=== PATIENT | female | born 1940 | race Caucasian/White ===

== ENCOUNTER 2019-12-13 10:37 | Outpatient (CLI) | payer MEDICARE, SELFPAY ==
--- NOTE | 2019-12-13 11:00 | CT_ITS ---
WS: [id number] CT CHEST TECHNIQUE: Noncontrast CT of the chest with coronal and sagittal reformatted images. CLINICAL INFORMATION: SHORTNESS OF BREATH COMPARISON: CT chest June 05, 2017 DLP: 891.[address] scans at [facility] use at least one of these dose optimization techniques: automat ed exposure control; mA and/or kV adjustment per patient size (includes targeted exams where dose is matched to clinical indication); or iterative reconstruction. FINDINGS: Mild chronic emphysematous changes. Subsegmental atelectasis in the lung bases. Hazy atelectasis in t he lingula and right middle lobe. No suspicious pulmonary parenchymal abnormalities. No acute pulmona ry infiltrates. No mediastinal or hilar lymphadenopathy. Mild chronic compression deformities throughout the thoracic spine similar in appearance. Aortic calcification. Left lower pole thyroid nodule measuring 1.5 cm. This could followed up with ultrasound. No mediastinal or hilar lymphadenopathy. No axillary lymphadenopathy. Moderate esophageal hiatal dolly ia. Fatty atrophy of the pancreas. Adrenal glands are normal. Cholelithiasis. Splenic artery calcific ation. CT/CT chest wo con [id number] IMPRESSION: 1. Mild chronic emphysematous changes. No acute pulmonary infiltrates. 2. No suspicious pulmonary parenchymal opacities. 3. Cholelithiasis. 4. Moderate esophageal hiatal hernia. 5. Partially visualized lower pole left thyroid nodule measuring 1.5 CM. This can be further evaluated with ultrasound.
[2019-12-13 12:05] LABS: Blood Urea Nitrogen 16 mg/dL (8-23)
== END 2019-12-13 10:38 | disposition home or self-care (01) ==
PROVIDERS: Family Provider Family Medicine; PCP Family Medicine; Visit Provider Family Medicine
DX: F41.9 Anxiety disorder, unspecified (principal); R06.02 Shortness of breath; K80.50 Calculus of bile duct without cholangitis or cholecystitis without obstruction; K44.9 Diaphragmatic hernia without obstruction or gangrene; E04.1 Nontoxic single thyroid nodule
CPT/HCPCS: 71250; 82565; 84520

== ENCOUNTER 2020-01-23 10:17 | Outpatient (CLI) | payer MEDICARE, SELFPAY ==
--- NOTE | 2020-01-23 10:15 | US_ITS ---
WS: [id number] THYROID ULTRASOUND HISTORY: THYROID NODULE COMPARISON: None available. Right lobe: 4.8 cm x 1.6 cm x 2.0 cm. Volume: 8.0 cm3. Normal size gland with mild heterogeneity but no nodule. Left lobe: 4.5 cm x 2.1 cm x 2.4 cm. Volume: 11.6 cm3. Mildly enlarged gland. There are multiple nodules within the gland. The largest nodule in the mid gla nd is mildly hypervascular extending towards the midline. This nodule measures 2.8 x 1.8 x 2.8 cm. Th is is a solid nodule. Isthmus: 0.5 cm. US/US thyroid [id number] IMPRESSION: Dominant solid nodule in the mid LEFT thyroid with extension into the isthmus. Recommend fine-needle aspiration with ultrasound guidance for cytology purposes .
== END 2020-01-23 10:18 | disposition home or self-care (01) ==
LOC: RAD 10:17
PROVIDERS: PCP Family Medicine; Visit Provider Family Medicine
DX: E04.1 Nontoxic single thyroid nodule (principal)
CPT/HCPCS: 76536

== ENCOUNTER 2020-04-03 11:31 | Inpatient (IN) | payer MEDICARE, SELFPAY ==
[2020-04-03] VITALS (143 sets, daily range): BP systolic 57–218; BP diastolic 35–98; PULSE 0–132; RESP 12–22; TEMP 35.9–36.9; O2SAT 62–100; BMI 31.6
--- NOTE | 2020-04-03 11:45 | CT_ITS ---
WS: [id number] CTA CHEST WITH CT ABDOMEN AND PELVIS. HISTORY: Dyspnea. TECHNIQUE: CT angiogram is performed through the chest. Additional imaging is performed through the a bdomen and pelvis with IV contrast. Sagittal and coronal reformats have been submitted. MIP imaging also reviewed. All CT scans at [facility] use at least one of these dose optimization tech niques: automated exposure control; mA and/or kV adjustment per patient size (includes targeted exams where dose is matched to clinical indication); or iterative reconstruction. Contrast: Visipaque 95 cc IV. DLP: 1680.3 mGy.cm COMPARISON: 12/13/2019, 08/30/2013 Chest CTA: Endotracheal tube is in good position. Nasogastric tube in good position. Previously descr ibed abnormally positioned central line appears to be posterior and external to the patient. Apparent ly this was not a central line. Extensive bilateral groundglass attenuation with dense areas of conso lidation. Complete consolidation in the lower lobes. Very small layering RIGHT pleural effusion. No p neumothorax. Normal size aorta. No pulmonary embolism is identified. No adenopathy. No pneumothorax. Mild anasarca in the soft tissues. Abdomen CT: Liver is normal size. Slightly contracted gallbladder. There is a stone present in the ga llbladder lumen. Small amount of pericholecystic fluid. No bile duct dilatation. Mild atrophy of the pancreas. No adrenal mass. No renal obstruction. Atherosclerosis aorta. No free fluid or ascites. No adenopathy. Pelvic CT: Doherty catheter present in the urinary bladder. There is no free fluid. There is a large ma ss with coarse calcifications in the RIGHT LEFT pelvis. Lobulated mass measures 8.4 x 4.8 cm. Mass is inseparable from the uterus. This mass was also described on the prior study but centered more to th e RIGHT of midline with less calcification. Suspect this could be a fibroid uterus but cannot exclude ovarian neoplasm. No adjacent ascites or adenopathy. There are numerous osteoporotic compression fractures throughout the thoracic and lumbar spine. No re tropulsion of any of the fractures. Diffuse osteopenia. There is a small amount of air in the LEFT gl enohumeral joint. There are numerous bilateral rib fractures. Bilateral contiguous rib fractures are probably due to recent CPR. Several of these rib fractures are displaced. On the RIGHT side there are 7 or 8 contiguous rib fractures. At least 7 contiguous rib fractures on the LEFT anteriorly. CT/CT angio chest w abd pel w con IMPRESSION: 1. Severe bilateral, diffuse pulmonary opacifications. Pneumonia, pulmonary ed connor and are within the differential. 2. Endotracheal nasogastric tubes in good position. 3. No PE. 4. Moderate cardiomegaly. 5. No pneumothorax. 6. Numerous bilateral contiguous rib fractures. Probably from CPR. 7. Large lobulated partially calcified mass in the LEFT pelvis may be from an exophytic calcified fibroid. LEFT ovarian neoplasm not completely excluded. The re is no ascites. 8. Slightly contracted gallbladder with pericholecystic fluid and cholelithias is. No bile duct dilatation. May be related to fluid overload or hepatocellular disease. Mild acute cholecystitis not excluded. 9. Numerous thoracic and lumbar spine osteopenia compression fractures are age indeterminate. Notified Dr. Paz at 04/03/2020 1:36 PM.
--- NOTE | 2020-04-03 11:45 | XR_ITS ---
WS: [id number] PORTABLE CHEST HISTORY: Dyspnea COMPARISON: 06/05/2017 Endotracheal tube in good position and terminates above the [place]. Nasogastric tube present with tip in the distal SVC. Defibrillator pads over the thorax. There is a catheter in the RIGHT neck. The ca theter distal tip does not extend toward the heart but is coiled and superiorly directed towards the soft tissues of the neck. Severe bilateral pulmonary infiltrates. New since 06/05/2017. Tiny pleural effusions are suspected. Cardiac size: Moderately enlarged cardiac silhouette. Mediastinum/Aorta: Mild atherosclerosis aorta. No osseous abnormality seen. XR/XR chest 1V portable [id number] IMPRESSION: 1. Endotracheal and nasogastric tubes in good position. 2. RIGHT central line has been placed and is aberrantly positioned with tip d irected superiorly and not towards the heart. Recommend repositioning before us ing. 3. Severe bilateral pulmonary opacifications. Differential includes pulmonary edema/ARDS and pneumonia.
--- NOTE | 2020-04-03 11:46 | ECG_ITS ---
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 Measurements Intervals [place] Rate: 129 P: 32 ID: [id number] QRS: -41 QRSD: 174 T: 117 QT: 349 QTc: 512 Interpretive Statements SINUS TACHYCARDIA WITH FIRST DEGREE AV BLOCK LEFT AXIS DEVIATION [QRS AXIS < -30] LEFT BUNDLE BRANCH BLOCK [120+ ms QRS DURATION, 80+ ms Q/S IN V1/V2, 85+ ms R IN I/aVL/V5/V6] No previous ECG available for comparison Electronically Signed On 04-04-2020 9:22:22 CDT by Brenda Valentine M.D. [id number]
[2020-04-03] MEDS: atropine 0.1 mg/mL Syr 10 mL 1 MG IVP ×3 (11:49→11:59)
[2020-04-03 11:56] LABS: Hematocrit 34.5 % (37.0-47.0); Hemoglobin 10.2 g/dL (11.5-15.3); Mean Corpuscular HGB Conc 29.6 g/dL (30.0-36.0); Mean Corpuscular Hemoglobin 31.8 pg (28.0-34.0); Mean Corpuscular Volume 107.5 fL (81-99); Mean Platelet Volume 11.5 fL (7.4-10.4); Platelet Count 307 10^3/cmm (130-400); Red Blood Count 3.21 10^6/uL (4.1-5.3); Red Cell Distribution Width 14.6 % (12.1-15.1); White Blood Count 21.1 10^3/uL (4.0-10.0)
[2020-04-03] MEDS: DOBUTamine drip 500 MG/250 ML PREMIX IV (12:01)
--- NOTE | 2020-04-03 12:06 | PC.NURSE ---
PORTABLE XRAY AT BEDSIDE FOR CXR. DENY AT BEDSIDE VO WITH READ BACK TO INSERT ET TUBE. ET 25CM AT TEETH.
[2020-04-03 12:10] LABS: INR 1.19 (0.8-1.2)
[2020-04-03 12:11] LABS: Partial Thromboplastin Time 41.4 SECONDS (23.9-36.7)
[2020-04-03 12:12] LABS: Troponin(5th) Baseline 100 ng/L (0-10)
--- NOTE | 2020-04-03 12:12 | PC.NURSE ---
DR. COBOS AT BEDSIDE INFORMED OF HR OF 132BPM VO WITH READ BACK TO HOLD DOPAMINE AND OBTAIN EKG.
[2020-04-03 12:14] LABS: Lactic Sepsis W/Reflex 9.9 mmol/L (0.5-2.2)
--- NOTE | 2020-04-03 12:14 | ECG_ITS ---
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 Measurements Intervals [place] Rate: 33 P: [place]: -1 QRS: 88 QRSD: 162 T: 93 QT: 425 QTc: 317 Interpretive Statements SINUS RHYTHM WITH THIRD DEGREE AV BLOCK INTRAVENTRICULAR CONDUCTION DELAY [130+ ms QRS DURATION] CRITICAL TEST RESULT No previous ECG available for comparison Electronically Signed On 04-04-2020 9:33:18 CDT by Brenda Valentine M.D. [id number] f
[2020-04-03 12:19] LABS: Slide Review Slide Review Perform
[2020-04-03 12:20] LABS: Alanine Aminotransferase 216 U/L (0-33); Albumin Level 3.1 g/dL (3.5-5.2); Alkaline Phosphatase 79 IU/L (35-105); Aspartate Amino Transferase 321 U/L (0-32); Blood Urea Nitrogen 17 mg/dL (8-23); Calcium 8.3 mg/dL (8.5-10.5); Carbon Dioxide 17 mmol/L (22-29); Chloride 101 mmol/L (98-107); Creatine Phosphokinase 186 U/L (26-192); Globulin 2.7 g/dL (1.3-4.6); Glucose 372 mg/dL (65-115); Magnesium 2.3 mg/dL (1.7-2.3); NT Pro B Type Natriuretic Pept 3371 pg/mL (0-450); Osmolality Calculated 295 mOsm/kg (285-295); Sodium 134 mmol/L (136-145); Total Bilirubin 0.3 mg/dL (0.15-1.2); Total Protein 5.8 g/dL (6.6-8.7)
[2020-04-03 12:24] LABS: Absolute Eosinophils 1.4 10^3/cmm (0.0-0.7); Absolute Segmented Neutrophil 7.6 10/cmm (1.6-7.1); Eosinophils 7 %; Lymphocytes 48 %; Lymphocytes Absolute 10.8 10^3/cmm (1.2-3.4); Monocytes Absolute 0.2 10^3/cmm (0.1-0.6); Segmented Neutrophils 36 %; Total Cells Counted 100 (0-100)
[2020-04-03 12:25] LABS: Absolute Neutrophil 7.6 10^3/cmm (1.4-6.5); Anisocytosis Trace; Platelet Estimate Normal (Normal); Poikilocytosis Trace
[2020-04-03 12:25] LABS: Arterial Blood Gas Hematocrit 33.7 % (37-47); Base Excess ABG -16.4 mmol/L (-2.0-2.0); Blood Gas Sample Type Arterial; Carboxyhemoglobin 1.2 %THgb (0.4-20.1); HCO3 ABG 15.8 mmol/L (22-26); Ionized Calcium Level - ABG 1.2 mmol/L (1.1-1.4); Methemoglobin 0.9 % (0.4-1.5); Oxygen Saturation ABG 82.7; PO2 ABG 72.9 mmHg (80.0-100.0); Potassium Level - ABG 5.6 mmol/L (3.5-5.0)
[2020-04-03 12:26] LABS: Alveolar-Arterial Oxygen Gradi 73.3 mmHg (5-10); Blood Gas Operator Identificat GD; Blood Gas Tidal Volume 0.45; Oxygen Device VENT
[2020-04-03] MEDS: sodium chloride 0.9% 1,000 ML 100 ML IV (12:27)
--- NOTE | 2020-04-03 12:28 | PC.NURSE ---
VO WITH READBACK TO TAKE PT TO CT.
--- NOTE | 2020-04-03 12:33 | W.ED.CPR ---
HPI - CPR General: Chief Complaint: Cardiac Arrest/CPR Stated Complaint: SOB Time Seen by Provider: 04/03/20 11:45 Source: EMS Mode of arrival: EMS History of Present Illness: HPI narrative: Ophelia is a 79-year-old female who comes in with active CPR. Please see EMS's note for their run report. Verbally they reported the patient has been coded off and on for approximately 20 minutes in route. They were initially called for a respiratory distress and the code began after she was given RSI for respiratory failure. Patient arrives here in full cardiac arrest with active CPR. Review of Systems General: Reports: ROS unobtainable due to medical condition PFS ED PFSH: Medical History (Updated 04/03/20 @ 15:16 by Jonathon Zavala MD) Anxiety Depression DM type 2 (diabetes mellitus, type 2) Fibromyalgia Hyperlipidemia Hypertension Hypothyroidism Osteoarthritis Osteoporosis Polymyalgia rheumatica Family History (Updated 04/03/20 @ 14:58 by Jonathon Zavala MD) Other CAD (coronary artery disease) Diabetes Stroke Social History (Updated 04/03/20 @ 14:58 by Jonathon Zavala MD) Smoking and tobacco status: former smoker Alcohol intake: never Household members: spouse Housing: House Physical Exam Const: OTHER: Unresponsive with active CPR ongoing HENMT: COMMON NORMALS: normocephalic and atraumatic HEAD & SCALP: normocephalic and atraumatic Eye: OTHER: Pupils 3 mm and reactive Neck/C-Spine: COMMON NORMALS: no meningeal signs Resp: AUSCULTATION: rales and rhonchi OTHER: Patient with bagged breath sounds Cardio: OTHER: No pulse GI: COMMON NORMALS: Soft to palpation PALPATION: Yes Soft to palpation and Yes Other GI palpation findings present (Nondistended) Extremity: NARRATIVE EXTREMITY EXAM: Bruising and ecchymosis noted to both knees. Greater on the left than the right Neuro: JENNIFER COMA SCALE: document GCS findings Jennifer coma scale eye opening: None [place] coma scale verbal response: None [place] coma scale motor response: None [place] coma scale total score: 3 MENINGEAL SIGNS: Yes no meningeal signs Procedures Central Line Placement Right Femoral: Time Out Performed: Yes Patient Placed on Monitor/Pulse Ox: Yes Prep: mask, gown and gloves Central Line Prep: Chlorhexidine scrub Ultrasound Used for Placement: Yes Central Line Lumen Inserted: triple Post Procedure: sutured in place, good blood return, all ports aspirated, flushed, capped and sterile dressing applied Patient Tolerated Procedure: well Complications: none Course ED course: 1200 -after ROSC the patient is noted to be bradycardic with third-degree AV block. Dr. Miranda has reviewed the EKG and agrees she needs to be taken for temporary pacemaker. 1215 -patient's rhythm is changed on dopamine. She appears to be in a sinus tachycardia with a bundle branch block. Dr. Miranda thinks the patient can wait until her work-up is completed and the pacemaker can be placed if she becomes bradycardic again. Dr. Tee has been updated. Vital Signs: Vital signs: Vital Signs Temperature 98.1 F 04/03/20 20:00 Pulse Rate 77 04/03/20 21:55 Respiratory Rate 16 04/03/20 21:13 Blood Pressure 112/50 04/03/20 21:55 Pulse Oximetry 98 04/03/20 21:55 MDM - Cardiac Arrest/CPR MDM Narrative: Medical decision making narrative: The case was reviewed again with Dr. Zavala who had been previously spoken to about the case. He agrees admit to the ICU. Repeat BMP is pending at this time. Hyperkalemic cocktail was given. Family was updated about the patient's poor prognosis. Further care be dictated by Dr. Tee in the ICU. Lab Data: Attestation: I reviewed the patient's lab results. Labs: Lab Results 04/03/20 04/03/20 04/03/20 Range/Units 11:40 11:40 11:40 WBC 21.1 H (4.0-10.0) 10^3/ uL RBC 3.21 L (4.1-5.3) 10^6/u L Hgb 10.2 L (11.5-15.3) g/dL Hct 34.5 L (37.0-47.0) % MCV 107.5 H (81-99) fL MCH 31.8 (28.0-34.0) pg MCHC 29.6 L (30.0-36.0) g/dL RDW 14.6 (12.1-15.1) % Plt Count 307 (130-400) 10^3/c mm MPV 11.5 H (7.4-10.4) fL Lymph % (Auto) Not Reportable Wood % (Auto) Not Reportable Lymph # (Auto) Not Reportable Wood # (Auto) Not Reportable Total Counted 100 (0-100) Atypical Lymphs % 3.0 (0-5) % Absolute Neutrophi ls 7.6 H (1.4-6.5) 10^3/c mm Segmented Neutroph ils 36 % Abs Segm Neuts (Ma n) 7.6 H (1.6-7.1) 10/cmm Band Neutrophils 0.0 % Abs Band Neuts (Ma n) 0.0 (0.0-1.2) 10^3/c mm Absolute Lymphocyt es 10.8 H (1.2-3.4) 10^3/c mm Lymphocytes (Manua l) 48 % Monocytes (Manual) 1.0 % Absolute Monocytes 0.2 (0.1-0.6) 10^3/c mm Eosinophils (Manua l) 7 % Absolute Eosinophi ls 1.4 H (0.0-0.7) 10^3/c mm Metamyelocytes 1.0 % Myelocytes 3.0 % Promyelocytes 1.0 % Platelet Estimate Normal (Normal) Poikilocytosis Trace Anisocytosis Trace PT 15.50 H (12.1-14.9) SECO NDS INR 1.19 (0.8-1.2) APTT 41.4 H (23.9-36.7) SECO NDS Specimen Type ABG pH (7.35-7.45) ABG pCO2 (35-45) mmHg ABG pO2 (80.0-100.0) mmH g ABG HCO3 (22-26) mmol/L ABG O2 Saturation ABG Base Excess (-2.0-2.0) mmol/ L Owen Test A-a O2 Gradient (5-10) mmHg Hematocrit (37-47) % Hgb O2 Saturation (95-100) % Carboxyhemoglobin (0.4-20.1) %THgb Methemoglobin (0.4-1.5) % Total Hemoglobin (12-16) g/dL Ionized Calcium (1.1-1.4) mmol/L O2 Delivery Device FiO2 % Tidal Volume PEEP cmH20 Language Therapist ID Sodium 134 L (136-145) mmol/L Potassium 6.8 H* (3.5-5.1) mmol/L Chloride 101 (98-107) mmol/L Carbon Dioxide 17 L (22-29) mmol/L Anion Gap 22.8 H (5-19) BUN 17 (8-23) mg/dL Creatinine 2.1 H (0.5-0.9) mg/dL GFR Calculation Not Reportable Glucose 372 H (65-115) mg/dL Calculated Osmolal ity 295 (285-295) mOsm/k g Lactic Acid (0.5-2.2) mmol/L Calcium 8.3 L (8.5-10.5) mg/dL Magnesium 2.3 (1.7-2.3) mg/dL Total Bilirubin 0.3 (0.15-1.2) mg/dL AST 321 H (0-32) U/L ALT 216 H (0-33) U/L Alkaline Phosphata se 79 (35-105) IU/L Creatine Kinase 186 (26-192) U/L Troponin T Baselin e (0-10) ng/L NT-Pro-B Natriuret Pep 3371 H (0-450) pg/mL Total Protein 5.8 L (6.6-8.7) g/dL Albumin 3.1 L (3.5-5.2) g/dL Globulin 2.7 (1.3-4.6) g/dL Urine Color (Yellow) Urine Appearance (CLEAR) Urine pH (5-7) Ur Specific Gravit y (1.005-1.030) Urine Protein (Negative) Urine Glucose (UA) (Normal) Urine Ketones (Negative) Urine Blood (Negative) Urine Nitrate (Negative) Urine Bilirubin (Negative) Urine Urobilinogen (Negative) mg/dL Ur Leukocyte Patricia ase (Negative) Urine RBC (0-2) /hpf Urine WBC (0-5) /hpf Ur Squamous Epith Cells (0-5) /hpf Amorphous Sediment Urine Bacteria (NONE) /hpf Ur Random Sodium mmol/L Ur Random Potassiu m mmol/L Ur Random Chloride mmol/L Urine Opiates Scre en (Negative) ng/mL Ur Barbiturates Sc reen (Negative) ng/mL Ur Phencyclidine S crn (Negative) ng/mL Ur Amphetamines Sc reen (Negative) ng/mL U Benzodiazepines Scrn (Negative) ng/mL Urine Cocaine Scre en (Negative) ng/mL U Marijuana (THC) Screen (Negative) ng/mL Serum Ketones (Negative) SARS-CoV-2 Ag (Rap id) (Negative) 04/03/20 04/03/20 04/03/20 Range/Units 11:40 11:40 11:40 WBC (4.0-10.0) 10^3/ uL RBC (4.1-5.3) 10^6/u L Hgb (11.5-15.3) g/dL Hct (37.0-47.0) % MCV (81-99) fL MCH (28.0-34.0) pg MCHC (30.0-36.0) g/dL RDW (12.1-15.1) % Plt Count (130-400) 10^3/c mm MPV (7.4-10.4) fL Lymph % (Auto) Wood % (Auto) Lymph # (Auto) Wood # (Auto) Total Counted (0-100) Atypical Lymphs % (0-5) % Absolute Neutrophi ls (1.4-6.5) 10^3/c mm Segmented Neutroph ils % Abs Segm Neuts (Ma n) (1.6-7.1) 10/cmm Band Neutrophils % Abs Band Neuts (Ma n) (0.0-1.2) 10^3/c mm Absolute Lymphocyt es (1.2-3.4) 10^3/c mm Lymphocytes (Manua l) % Monocytes (Manual) % Absolute Monocytes (0.1-0.6) 10^3/c mm Eosinophils (Manua l) % Absolute Eosinophi ls (0.0-0.7) 10^3/c mm Metamyelocytes % Myelocytes % Promyelocytes % Platelet Estimate (Normal) Poikilocytosis Anisocytosis PT (12.1-14.9) SECO NDS INR (0.8-1.2) APTT (23.9-36.7) SECO NDS Specimen Type ABG pH (7.35-7.45) ABG pCO2 (35-45) mmHg ABG pO2 (80.0-100.0) mmH g ABG HCO3 (22-26) mmol/L ABG O2 Saturation ABG Base Excess (-2.0-2.0) mmol/ L Owen Test A-a O2 Gradient (5-10) mmHg Hematocrit (37-47) % Hgb O2 Saturation (95-100) % Carboxyhemoglobin (0.4-20.1) %THgb Methemoglobin (0.4-1.5) % Total Hemoglobin (12-16) g/dL Ionized Calcium (1.1-1.4) mmol/L O2 Delivery Device FiO2 % Tidal Volume PEEP cmH20 Language Therapist ID Sodium (136-145) mmol/L Potassium (3.5-5.1) mmol/L Chloride (98-107) mmol/L Carbon Dioxide (22-29) mmol/L Anion Gap (5-19) BUN (8-23) mg/dL Creatinine (0.5-0.9) mg/dL GFR Calculation Glucose (65-115) mg/dL Calculated Osmolal ity (285-295) mOsm/k g Lactic Acid 9.9 H* (0.5-2.2) mmol/L Calcium (8.5-10.5) mg/dL Magnesium (1.7-2.3) mg/dL Total Bilirubin (0.15-1.2) mg/dL AST (0-32) U/L ALT (0-33) U/L Alkaline Phosphata se (35-105) IU/L Creatine Kinase (26-192) U/L Troponin T Baselin e 100 H (0-10) ng/L NT-Pro-B Natriuret Pep (0-450) pg/mL Total Protein (6.6-8.7) g/dL Albumin (3.5-5.2) g/dL Globulin (1.3-4.6) g/dL Urine Color Yellow (Yellow) Urine Appearance Clear (CLEAR) Urine pH 6.5 (5-7) Ur Specific Gravit y 1.010 (1.005-1.030) Urine Protein Neg (Negative) Urine Glucose (UA) Norm (Normal) Urine Ketones Negative (Negative) Urine Blood Neg (Negative) Urine Nitrate Negative (Negative) Urine Bilirubin Neg (Negative) Urine Urobilinogen Norm (Negative) mg/dL Ur Leukocyte Patricia ase Negative (Negative) Urine RBC 0-4 H (0-2) /hpf Urine WBC 0-4 H (0-5) /hpf Ur Squamous Epith Cells 0-4 H (0-5) /hpf Amorphous Sediment Not Reportable Urine Bacteria Trace (NONE) /hpf Ur Random Sodium mmol/L Ur Random Potassiu m mmol/L Ur Random Chloride mmol/L Urine Opiates Scre en (Negative) ng/mL Ur Barbiturates Sc reen (Negative) ng/mL Ur Phencyclidine S crn (Negative) ng/mL Ur Amphetamines Sc reen (Negative) ng/mL U Benzodiazepines Scrn (Negative) ng/mL Urine Cocaine Scre en (Negative) ng/mL U Marijuana (THC) Screen (Negative) ng/mL Serum Ketones (Negative) SARS-CoV-2 Ag (Rap id) (Negative) 04/03/20 04/03/20 04/03/20 Range/Units 11:40 11:40 12:08 WBC (4.0-10.0) 10^3/ uL RBC (4.1-5.3) 10^6/u L Hgb (11.5-15.3) g/dL Hct (37.0-47.0) % MCV (81-99) fL MCH (28.0-34.0) pg MCHC (30.0-36.0) g/dL RDW (12.1-15.1) % Plt Count (130-400) 10^3/c mm MPV (7.4-10.4) fL Lymph % (Auto) Wood % (Auto) Lymph # (Auto) Wood # (Auto) Total Counted (0-100) Atypical Lymphs % (0-5) % Absolute Neutrophi ls (1.4-6.5) 10^3/c mm Segmented Neutroph ils % Abs Segm Neuts (Ma n) (1.6-7.1) 10/cmm Band Neutrophils % Abs Band Neuts (Ma n) (0.0-1.2) 10^3/c mm Absolute Lymphocyt es (1.2-3.4) 10^3/c mm Lymphocytes (Manua l) % Monocytes (Manual) % Absolute Monocytes (0.1-0.6) 10^3/c mm Eosinophils (Manua l) % Absolute Eosinophi ls (0.0-0.7) 10^3/c mm Metamyelocytes % Myelocytes % Promyelocytes % Platelet Estimate (Normal) Poikilocytosis Anisocytosis PT (12.1-14.9) SECO NDS INR (0.8-1.2) APTT (23.9-36.7) SECO NDS Specimen Type Arterial ABG pH 6.96 L* (7.35-7.45) ABG pCO2 70.7 H* (35-45) mmHg ABG pO2 72.9 L (80.0-100.0) mmH g ABG HCO3 15.8 L (22-26) mmol/L ABG O2 Saturation 82.7 ABG Base Excess -16.4 L (-2.0-2.0) mmol/ L Owen Test N/a A-a O2 Gradient 73.3 H (5-10) mmHg Hematocrit 33.7 L (37-47) % Hgb O2 Saturation 81.0 L (95-100) % Carboxyhemoglobin 1.2 (0.4-20.1) %THgb Methemoglobin 0.9 (0.4-1.5) % Total Hemoglobin 11.0 L (12-16) g/dL Ionized Calcium 1.2 (1.1-1.4) mmol/L O2 Delivery Device Vent FiO2 100.0 % Tidal Volume 0.45 PEEP 8.0 cmH20 Language Therapist ID Gd Sodium 138.0 (136-145) mmol/L Potassium 5.6 H (3.5-5.1) mmol/L Chloride (98-107) mmol/L Carbon Dioxide (22-29) mmol/L Anion Gap (5-19) BUN (8-23) mg/dL Creatinine (0.5-0.9) mg/dL GFR Calculation Glucose 335.0 H (65-115) mg/dL Calculated Osmolal ity (285-295) mOsm/k g Lactic Acid (0.5-2.2) mmol/L Calcium (8.5-10.5) mg/dL Magnesium (1.7-2.3) mg/dL Total Bilirubin (0.15-1.2) mg/dL AST (0-32) U/L ALT (0-33) U/L Alkaline Phosphata se (35-105) IU/L Creatine Kinase (26-192) U/L Troponin T Baselin e (0-10) ng/L NT-Pro-B Natriuret Pep (0-450) pg/mL Total Protein (6.6-8.7) g/dL Albumin (3.5-5.2) g/dL Globulin (1.3-4.6) g/dL Urine Color (Yellow) Urine Appearance (CLEAR) Urine pH (5-7) Ur Specific Gravit y (1.005-1.030) Urine Protein (Negative) Urine Glucose (UA) (Normal) Urine Ketones (Negative) Urine Blood (Negative) Urine Nitrate (Negative) Urine Bilirubin (Negative) Urine Urobilinogen (Negative) mg/dL Ur Leukocyte Patricia ase (Negative) Urine RBC (0-2) /hpf Urine WBC (0-5) /hpf Ur Squamous Epith Cells (0-5) /hpf Amorphous Sediment Urine Bacteria (NONE) /hpf Ur Random Sodium 73 mmol/L Ur Random Potassiu m 45 mmol/L Ur Random Chloride 66 mmol/L Urine Opiates Scre en Negative (Negative) ng/mL Ur Barbiturates Sc reen Negative (Negative) ng/mL Ur Phencyclidine S crn Negative (Negative) ng/mL Ur Amphetamines Sc reen Negative (Negative) ng/mL U Benzodiazepines Scrn Positive H (Negative) ng/mL Urine Cocaine Scre en Negative (Negative) ng/mL U Marijuana (THC) Screen Negative (Negative) ng/mL Serum Ketones Negative (Negative) SARS-CoV-2 Ag (Rap id) (Negative) 04/03/20 Range/Units 12:30 WBC (4.0-10.0) 10^3/ uL RBC (4.1-5.3) 10^6/u L Hgb (11.5-15.3) g/dL Hct (37.0-47.0) % MCV (81-99) fL MCH (28.0-34.0) pg MCHC (30.0-36.0) g/dL RDW (12.1-15.1) % Plt Count (130-400) 10^3/c mm MPV (7.4-10.4) fL Lymph % (Auto) Wood % (Auto) Lymph # (Auto) Wood # (Auto) Total Counted (0-100) Atypical Lymphs % (0-5) % Absolute Neutrophi ls (1.4-6.5) 10^3/c mm Segmented Neutroph ils % Abs Segm Neuts (Ma n) (1.6-7.1) 10/cmm Band Neutrophils % Abs Band Neuts (Ma n) (0.0-1.2) 10^3/c mm Absolute Lymphocyt es (1.2-3.4) 10^3/c mm Lymphocytes (Manua l) % Monocytes (Manual) % Absolute Monocytes (0.1-0.6) 10^3/c mm Eosinophils (Manua l) % Absolute Eosinophi ls (0.0-0.7) 10^3/c mm Metamyelocytes % Myelocytes % Promyelocytes % Platelet Estimate (Normal) Poikilocytosis Anisocytosis PT (12.1-14.9) SECO NDS INR (0.8-1.2) APTT (23.9-36.7) SECO NDS Specimen Type ABG pH (7.35-7.45) ABG pCO2 (35-45) mmHg ABG pO2 (80.0-100.0) mmH g ABG HCO3 (22-26) mmol/L ABG O2 Saturation ABG Base Excess (-2.0-2.0) mmol/ L Owen Test A-a O2 Gradient (5-10) mmHg Hematocrit (37-47) % Hgb O2 Saturation (95-100) % Carboxyhemoglobin (0.4-20.1) %THgb Methemoglobin (0.4-1.5) % Total Hemoglobin (12-16) g/dL Ionized Calcium (1.1-1.4) mmol/L O2 Delivery Device FiO2 % Tidal Volume PEEP cmH20 Language Therapist ID Sodium (136-145) mmol/L Potassium (3.5-5.1) mmol/L Chloride (98-107) mmol/L Carbon Dioxide (22-29) mmol/L Anion Gap (5-19) BUN (8-23) mg/dL Creatinine (0.5-0.9) mg/dL GFR Calculation Glucose (65-115) mg/dL Calculated Osmolal ity (285-295) mOsm/k g Lactic Acid (0.5-2.2) mmol/L Calcium (8.5-10.5) mg/dL Magnesium (1.7-2.3) mg/dL Total Bilirubin (0.15-1.2) mg/dL AST (0-32) U/L ALT (0-33) U/L Alkaline Phosphata se (35-105) IU/L Creatine Kinase (26-192) U/L Troponin T Baselin e (0-10) ng/L NT-Pro-B Natriuret Pep (0-450) pg/mL Total Protein (6.6-8.7) g/dL Albumin (3.5-5.2) g/dL Globulin (1.3-4.6) g/dL Urine Color (Yellow) Urine Appearance (CLEAR) Urine pH (5-7) Ur Specific Gravit y (1.005-1.030) Urine Protein (Negative) Urine Glucose (UA) (Normal) Urine Ketones (Negative) Urine Blood (Negative) Urine Nitrate (Negative) Urine Bilirubin (Negative) Urine Urobilinogen (Negative) mg/dL Ur Leukocyte Patricia ase (Negative) Urine RBC (0-2) /hpf Urine WBC (0-5) /hpf Ur Squamous Epith Cells (0-5) /hpf Amorphous Sediment Urine Bacteria (NONE) /hpf Ur Random Sodium mmol/L Ur Random Potassiu m mmol/L Ur Random Chloride mmol/L Urine Opiates Scre en (Negative) ng/mL Ur Barbiturates Sc reen (Negative) ng/mL Ur Phencyclidine S crn (Negative) ng/mL Ur Amphetamines Sc reen (Negative) ng/mL U Benzodiazepines Scrn (Negative) ng/mL Urine Cocaine Scre en (Negative) ng/mL U Marijuana (THC) Screen (Negative) ng/mL Serum Ketones (Negative) SARS-CoV-2 Ag (Rap id) Negative (Negative) Imaging Data^: CXR: Attestation: I personally reviewed and interpreted this imaging study as follows: My impression: ET tube and NG tube with appropriate placement. Cardiomegaly. Extensive pulmonary edema versus aspiration noted. CT Head: Radiologist's impression: [address] [address] [address] Scan Report Signed Patient: Ophelia Wade Unit #: [id number] : 1940 Age/Sex: 79 / F ADM Date: 04/03/20 Loc: ER Room/Bed: Attending Dr: Ordering Provider/Ordering MD: Hollie Paz MD Date of Service: 04/03/20 Procedure(s): CT head wo con* 60250 Accession Number(s): [id number] Report Number: [id number] WS: [id number] CT HEAD NONCONTRAST HISTORY: Altered mental status TECHNIQUE: Contiguous axial imaging performed through the brain in 2.5 mm imaging. Bone and soft tissue windows. Sagittal and coronal reformats reviewed. All CT scans at [facility] use at least one of these dose optimization techniques: automated exposure control; mA and/or kV adjustment per patient size (includes targeted exams where dose is matched to clinical indication); or iterative reconstruction. DLP: 941.66 mGy.cm COMPARISON: 12/13/2009 Quality of this examination is significantly limited by artifact. There is contrast enhancement throughout the vessels as this examination was performed after CT angiogram of the pulmonary arteries. Cannot exclude intracranial hemorrhage as there is contrast opacification present. There are no large areas of hemorrhage or midline shift. Mild atrophy and chronic ischemic appearing changes. Ventricles: Normal size with no hydrocephalus. Paranasal sinuses: Air-fluid levels in the ethmoid and sphenoid sinuses. Mastoid air cells: Well pneumatized. Calvarium and scalp: Skull is intact with no soft tissue edema or swelling. CT/CT head wo con* [id number] IMPRESSION: 1. Significantly limited quality evaluation of the intracranial structures due to artifact and IV contrast being present. 2. No large areas of hemorrhage or edema. Dictated By: Alejandrina Rogers DO Signed By: Alejandrina Rogers DO Signed Date/Time: 04/03/20 1306 DD/ 1303 CTA Chest with Abdomen Pelvis: Radiologist's impression: [address] [address] [address] Scan Report Signed Patient: Ophelia Wade Unit #: [id number] : 1940 Age/Sex: 79 / F ADM Date: 04/03/20 Loc: ER Room/Bed: Attending Dr: Ordering Provider/Ordering MD: Jesika Mccloud DO Date of Service: 04/03/20 Procedure(s): CT angio chest w abd pel w con Accession Number(s): [id number] Report Number: [id number] WS: [id number] CTA CHEST WITH CT ABDOMEN AND PELVIS. HISTORY: Dyspnea. TECHNIQUE: CT angiogram is performed through the chest. Additional imaging is performed through the abdomen and pelvis with IV contrast. Sagittal and coronal reformats have been submitted. MIP imaging also reviewed. All CT scans at [facility] use at least one of these dose optimization techniques: automated exposure control; mA and/or kV adjustment per patient size (includes targeted exams where dose is matched to clinical indication); or iterative reconstruction. Contrast: Visipaque 95 cc IV. DLP: 1680.3 mGy.cm COMPARISON: 12/13/2019, 08/30/2013 Chest CTA: Endotracheal tube is in good position. Nasogastric tube in good position. Previously described abnormally positioned central line appears to be posterior and external to the patient. Apparently this was not a central line. Extensive bilateral groundglass attenuation with dense areas of consolidation. Complete consolidation in the lower lobes. Very small layering RIGHT pleural effusion. No pneumothorax. Normal size aorta. No pulmonary embolism is identified. No adenopathy. No pneumothorax. Mild anasarca in the soft tissues. Abdomen CT: Liver is normal size. Slightly contracted gallbladder. There is a stone present in the gallbladder lumen. Small amount of pericholecystic fluid. No bile duct dilatation. Mild atrophy of the pancreas. No adrenal mass. No renal obstruction. Atherosclerosis aorta. No free fluid or ascites. No adenopathy. Pelvic CT: Doherty catheter present in the urinary bladder. There is no free fluid. There is a large mass with coarse calcifications in the RIGHT LEFT pelvis. Lobulated mass measures 8.4 x 4.8 cm. Mass is inseparable from the uterus. This mass was also described on the prior study but centered more to the RIGHT of midline with less calcification. Suspect this could be a fibroid uterus but cannot exclude ovarian neoplasm. No adjacent ascites or adenopathy. There are numerous osteoporotic compression fractures throughout the thoracic and lumbar spine. No retropulsion of any of the fractures. Diffuse osteopenia. There is a small amount of air in the LEFT glenohumeral joint. There are numerous bilateral rib fractures. Bilateral contiguous rib fractures are probably due to recent CPR. Several of these rib fractures are displaced. On the RIGHT side there are 7 or 8 contiguous rib fractures. At least 7 contiguous rib fractures on the LEFT anteriorly. CT/CT angio chest w abd pel w con IMPRESSION: 1. Severe bilateral, diffuse pulmonary opacifications. Pneumonia, pulmonary edema and are within the differential. 2. Endotracheal nasogastric tubes in good position. 3. No PE. 4. Moderate cardiomegaly. 5. No pneumothorax. 6. Numerous bilateral contiguous rib fractures. Probably from CPR. 7. Large lobulated partially calcified mass in the LEFT pelvis may be from an exophytic calcified fibroid. LEFT ovarian neoplasm not completely excluded. There is no ascites. 8. Slightly contracted gallbladder with pericholecystic fluid and cholelithiasis. No bile duct dilatation. May be related to fluid overload or hepatocellular disease. Mild acute cholecystitis not excluded. 9. Numerous thoracic and lumbar spine osteopenia compression fractures are age indeterminate. Notified Dr. Paz at 04/03/2020 1:36 PM. Dictated By: Alejandrina Rogers DO Signed By: Alejandrina Rogers DO Signed Date/Time: 04/03/20 1336 DD/ 1311 EKG Data^: EKG 1: Attestation: I personally reviewed and interpreted this EKG as follows: EKG interpretation date: 04/03/20 EKG interpretation time: 11:53 Interpretation: Third-degree AV block with a ventricular rate of 33 beats a minute, bundle branch block present. Confirm with Dr. Miranda EKG 2: Attestation: I personally reviewed and interpreted this EKG as follows: EKG interpretation date: 04/03/20 EKG interpretation time: 12:18 Interpretation: Sinus tachycardia with first-degree AV block. Ventricular rate 129. Left bundle branch block present. No old for comparison. Confirmed with Dr. Miranda Critical Care Time Critical Care Time: Critical Care Time: Yes Total Critical Care Time: 30 Attestation: Critical care time was exclusive of billable procedures. Critical care time included running the code with ACLS protocols. Critical care time consisted of consultation with family, reviewing radiologic and laboratory values as well as intervening upon abnormalities. All care time consisted of managing hyperkalemia. Critical care time consisted of managing ventilator and monitoring vital signs Discharge Plan Discharge Patient Disposition: Admitted As Inpatient Admit Provider: Jonathon Zavala Clinical Impression: Cardiac arrest Acute respiratory failure Qualifiers: Respiratory failure complication: hypoxia and hypercapnia Qualified Code(s): J96.01 - Acute respiratory failure with hypoxia Acute renal failure Qualifiers: Acute renal failure type: unspecified Qualified Code(s): N17.9 - Acute kidney failure, unspecified Condition: Stable Referrals: Jimmy Guzman DO [Primary Care Provider] - Discharge Date/Time: 04/03/20 17:27 Coding Level of Care Code ED Kettle Loader for Chg Fwd Exam Detailed
[2020-04-03 12:37] LABS: Anion Gap 22.8 (5-19)
[2020-04-03 12:38] LABS: Potassium 6.8 mmol/L (3.5-5.1)
[2020-04-03 12:42] LABS: Bilirubin Urine Neg (Negative); Blood Urine Neg (Negative); Glucose Urine UA Norm (Normal); Ketones Urine Negative (Negative); Leukocyte Esterase Urine Negative (Negative); Nitrate Urine Negative (Negative); Protein Urine Neg (Negative); Urine Appearance Clear (CLEAR); Urine Color Yellow (Yellow); Urobilinogen Urine Norm (Negative); pH Urine 6.5 (5-7)
[2020-04-03 12:46] LABS: ABG PCO2 70.7 mmHg (35-45); ABG PH Result 6.96 (7.35-7.45)
[2020-04-03 12:47] LABS: Add Urine Culture? No; Bacteria Urine TRACE /hpf; RBC Urine 0-4 /hpf (0-2); Squamous Epithelial Cell Urine 0-4 /hpf (0-5); WBC Urine 0-4 /hpf (0-5)
--- NOTE | 2020-04-03 12:49 | CT_ITS ---
WS: [id number] CT HEAD NONCONTRAST HISTORY: Altered mental status TECHNIQUE: Contiguous axial imaging performed through the brain in 2.5 mm imaging. Bone and soft tiss ue windows. Sagittal and coronal reformats reviewed. All CT scans at [facility] use at le ast one of these dose optimization techniques: automated exposure control; mA and/or kV adjustment pe r patient size (includes targeted exams where dose is matched to clinical indication); or iterative r econstruction. DLP: 941.66 mGy.cm COMPARISON: 12/13/2009 Quality of this examination is significantly limited by artifact. There is contrast enhancement throu ghout the vessels as this examination was performed after CT angiogram of the pulmonary arteries. Cannot exclude intracranial hemorrhage as there is contrast opacification present. There are no large areas of hemorrhage or midline shift. Mild atrophy and chronic ischemic appearing changes. Ventricles: Normal size with no hydrocephalus. Paranasal sinuses: Air-fluid levels in the ethmoid and sphenoid sinuses. Mastoid air cells: Well pneumatized. Calvarium and scalp: Skull is intact with no soft tissue edema or swelling. CT/CT head wo con* [id number] IMPRESSION: 1. Significantly limited quality evaluation of the intracranial structures due to artifact and IV contrast being present. 2. No large areas of hemorrhage or edema.
[2020-04-03] MEDS: iodixanol 320 mg/mL 100mL Btl IV (12:50)
--- NOTE | 2020-04-03 12:58 | PC.NURSE ---
PT BACK IN ROOM. PT BEING MONITORED WITH SPO2, CM, AND NIBP. PT PLACED BACK ON BEAR HUGGER.
[2020-04-03] MEDS: dextrose 50% syringe 50 mL IVP (13:02)
[2020-04-03] MEDS: insulin regular-human 100 units/1 mL 10 UNIT IVP (13:04)
[2020-04-03 13:06] LABS: SARS Covid-2 Antigen Negative (Negative)
[2020-04-03] MEDS: sodium bicarbonate 8.4% 1 mEq/mL 50mL Syr 100 MEQ IVP (13:06)
[2020-04-03] MEDS: FUROsemide 10 mg/mL SDV 10mL 60 MG IVP (13:12)
--- NOTE | 2020-04-03 13:40 | PC.NURSE ---
VO WITH READBACK FROM DR. DAUGHERTY TO HOLD BEAR HUGGER AND PLACE SHEET OVER PT. TROP AND BMP SENT TO LAB WITH PCR COVID SWAB.
[2020-04-03 13:41] LABS: Reflex Lactate Order REFLEX LACTIC ORDERD
--- NOTE | 2020-04-03 13:46 | ECG_ITS ---
[facility] Test Date: 2020-04-03 Pat Name: Ophelia Wade Department: Room: ICU09 Gender: Female Pail Tester: : 1940 Requested By: Jesika Oh Order Number: [id number] Gaby MD: Brenda Valentine M.D. Measurements Intervals [place] Rate: 103 P: 34 WY: 140 QRS: -53 QRSD: 153 T: 117 QT: 384 QTc: 504 Interpretive Statements SINUS TACHYCARDIA LEFT AXIS DEVIATION [QRS AXIS < -30] LEFT BUNDLE BRANCH BLOCK [120+ ms QRS DURATION, 80+ ms Q/S IN V1/V2, 85+ ms R IN I/aVL/V5/V6] Compared to ECG 04/03/2020 12:18:39 First degree AV block no longer present Electronically Signed On 04-04-2020 8:57:57 CDT by Brenda Valentine M.D. [id number]
--- NOTE | 2020-04-03 14:04 | USCV_ITS ---
Ophelia Wade Age: 79 Gender: F : 1940 Exam Date: 04/03/2020 14:25 Ordering Phys: Jonathon Zavala MD Technologist: Kierra Kwok [place] [facility] [place]ication: CARDIAC ARREST BP: 111 / 61 HR: 112 Rhythm: Sinus Technical Quality: Very technically difficult study MEASUREMENTS (Male / Female) Normal Values 2D ECHO LV Chamber Size 2.1 cm RV Chamber Size 2.5 cm LVOT Diameter 2.0 cm LV Ejection Fraction MOD 2C 61.7 % LV Ejection Fraction 2C AL 61.0 % LA Diameter 3.0 cm LA Width 2.9 cm LA Height 3.4 cm RA Width 2.7 cm RA Height 3.1 cm Aorta at Sinotubular Diameter 2.8 cm DOPPLER AV Peak Velocity 203.0 cm/s LVOT Peak Velocity 135.0 cm/s AV Area Cont Eq vti 2.3 cm squared AV Area Cont Eq pk 2.2 cm squared MV Area PHT 7.6 cm squared Mitral E to A Ratio 1.6 MV E' Velocity 12.0 cm/s Mitral E to MV E' Ratio 9.4 Mitral E to LV E' Lateral Ratio 7.7 Mitral E to LV E' Septal Ratio 12.1 TR Peak Velocity 293.0 cm/s TR Peak Gradient 34.4 mmHg TV Peak E Velocity 73.0 cm/s Right Atrial Pressure 15.0 mmHg Pulmonary Artery Systolic Pressu 49.3 mmHg PV Peak Velocity 111.0 cm/s RV Acceleration Time 0.1 s RV Ejection Time 0.3 s RV AcT/ET 0.4 FINDINGS Left Ventricle Technically very limited study. Grossly LV EF is at least 40%. Regional wall motion abnormalities cannot be ruled out because of limited visualization. Diastolic function cannot be determined because of tachycardia. Right Ventricle Not well visualized Right Atrium Not well visualized Left Atrium Not well visualized Mitral Valve Not well visualized Aortic Valve Not well visualized Tricuspid Valve Not well visualized Pulmonic Valve Not well visualized Pericardium Not well visualized Aorta Not well visualized CONCLUSIONS This is a very limited study. Unable to visualize the LV well. LVEF is at least 40% based on the limited windows available. Regional wall motion abnormalities cannot be ruled out. Recommend repeating echo with contrast once patient's condition allows. Kris Miranda MD (Electronically Signed) Final Date: 03 April 2020 15:01 S
--- NOTE | 2020-04-03 14:13 | PC.NURSE ---
PT IS IN NAD. PT STATUS IS UNCHANGED WHILE AT BEDSIDE.
[2020-04-03 14:32] LABS: Amphetamines Screen Urine Negative (Negative); Barbiturates Screen Urine Negative (Negative); Benzodiazepines Screen Urine Positive (Negative); Cocaine Screen Urine Negative (Negative); Opiate Screen Urine Negative (Negative); PCP Screen Urine Negative (Negative); THC Screen Urine Negative (Negative)
[2020-04-03 14:36] LABS: Potassium, Radom Urine 45 mmol/L; Urine Random Chloride 66 mmol/L; Urine Random Sodium 73 mmol/L
[2020-04-03 14:42] LABS: Thyroid Stimulating Hormone 1.14 uIU/mL (0.27-4.20)
[2020-04-03 14:53] LABS: Anion Gap 25.5 (5-19); Blood Urea Nitrogen 21 mg/dL (8-23); Calcium 8.2 mg/dL (8.5-10.5); Carbon Dioxide 19 mmol/L (22-29); Chloride 97 mmol/L (98-107); Creatinine Clr Calc Pharmacy 24.7271; Glucose 367 mg/dL (65-115); Iron 99 ug/dL (37-145); Osmolality Calculated 300 mOsm/kg (285-295); Percent Saturation 49.7 % (20-50); Potassium 5.5 mmol/L (3.5-5.1); Sodium 136 mmol/L (136-145); Total Iron Binding Capacity 199 mcg/dl; Unsaturated Iron Binding 100 ug/dL (112-347)
--- NOTE | 2020-04-03 14:55 | P.HP_ITS ---
Providers/Chief Complaint Admitting Physician: Jonathon Zavala MD Primary Care Provider: Jimmy Guzman DO Chief Complaint: SOB History of Present Illness Ophelia Wade is a 79 year old female with past medical history of hypertension, polymyalgia rheumatica on steroids, hypothyroidism, anxiety, depression. History taken through sounds. Patient was brought to the ER today by EMS because of difficulty in breathing. En route to the hospital patient was intubated because of difficulty in breathing. After intubation patient developed cardiac arrest for which she had 3 cycles of ACLS protocol chest compressions. Post ACLS protocol cardiac compressions patient achieved ROSC after which she developed third-degree heart block. Patient started on Levophed and dobutamine in the ER. After being on dopamine patient heart rate went up to 115 and third-degree heart block was re lieved. Most of the history taken through the son. As per the family patient has been having increased swelling in her lower limbs for last 2 weeks along with oozing of fluid. Patient was seen by her primary care provider and started on Bactrim for possible cellulitis. Patient has taken Bactrim for last 10 days. Patient is also been having nausea along with vomiting for last 2 weeks occasionally. They are not sure of any diarrhea, dysuria, cough, difficulty in breathing, headache, PND, orthopnea. They also state that patient as per them has no known exposure to COVID-19 though they also say that patient's grand son-in-law was positive for COVID-19 3 weeks ago. Patient did not have any direct contact with the grand son-in-law but the son's were in touch with both of them. Review of Systems General: Reports: ROS unobtainable due to endotracheal tube Medications/Allergies Home Medications Medication Instructions Recorded Confirmed Last Taken Type alprazolam 0.25 mg PO BID 04/03/20 04/03/20 Unknown History atenolol 50 mg PO DAILY 04/03/20 04/03/20 Unknown History clotrimazole-betamethasone See Rx Instructions .ROUTE .COMPLEX 04/03/20 04/03/20 Unknown History desvenlafaxine succinate 50 mg PO DAILY 04/03/20 04/03/20 Unknown History gabapentin 300 mg PO TID 04/03/20 04/03/20 Unknown History levothyroxine 112 mcg PO DAILY 04/03/20 04/03/20 Unknown History lisinopril 40 mg PO DAILY 04/03/20 04/03/20 Unknown History metformin 1,000 mg PO BID 04/03/20 04/03/20 Unknown History oxycodone 15 mg PO Q4H 04/03/20 04/03/20 Unknown History pantoprazole 20 mg PO DAILY 04/03/20 04/03/20 Unknown History prednisone 10 mg PO DAILY 04/03/20 04/03/20 Unknown History sulfamethoxazole-trimethoprim 1 tab PO BID 04/03/20 04/03/20 Unknown History Allergies Allergy/AdvReac Type Severity Reaction Status Date / Time Penicillins Allergy ALGY-Hives Verified 04/03/20 11:44 PFSH Acute PFSH: Medical History (Updated 04/03/20 @ 15:16 by Jonathon Zavala MD) Anxiety Depression DM type 2 (diabetes mellitus, type 2) Fibromyalgia Hyperlipidemia Hypertension Hypothyroidism Osteoarthritis Osteoporosis Polymyalgia rheumatica Family History (Updated 04/03/20 @ 14:58 by Jonathon Zavala MD) Other CAD (coronary artery disease) Diabetes Stroke Social History (Updated 04/03/20 @ 14:58 by Jonathon Zavala MD) Smoking and tobacco status: former smoker Alcohol intake: never Substance/Drug Use: never Household members: spouse Housing: House Vitals/I&O/Wt Last Vital Signs Temp 96.6 F L 04/03/20 11:54 Pulse 114 H 04/03/20 13:40 Resp 18 04/03/20 13:42 BP 117/55 04/03/20 13:40 Pulse Ox 90 04/03/20 13:40 Weight last 48 hrs Weight 86.183 kg Physical Exam Narrative: EXAM NARRATIVE: General: Sedated, intubated, not arousable not on sedation HEENT: PERRLA, pupils bilaterally equal and reactive Chest: Bilateral coarse crackles present all over the lung conroy, decreased air entry in the lower zones bilaterally. CVS: S1-S2 regular, tachycardia, S3 gallop, JVD elevated, hepato-reflux present Abdomen: Soft, nontender, no organomegaly, bowel sounds present Neuro: Not arousable, GCS: E1 M1 ET tube Urinary Catheter Management^: Doherty: Cath Placed During This Visit: yes Reason for Continuing Indwelling Catheter: Accurate Measurement of Urinary Output in Critically Ill Patients Urinary Catheter Date of Insertion: 04/03/20 Urinary Catheter Time of Insertion: 11:55 Data : 04/03/20 11:40 04/03/20 14:00 A&P Assessment and plan (1) Septic shock: Status: Acute (2) Cardiac arrest: Status: Acute (3) Acute respiratory failure: Status: Acute Qualifiers: Respiratory failure complication: hypoxia and hypercapnia Qualified Code(s): J96.01 - Acute respiratory failure with hypoxia; J96.02 - Acute respiratory failure with hypercapnia (4) Acute renal failure: Status: Acute Qualifiers: Acute renal failure type: unspecified Qualified Code(s): N17.9 - Acute kidney failure, unspecified (5) ARDS (adult respiratory distress syndrome): Status: Acute (6) Acidosis, metabolic, with respiratory acidosis: Status: Acute (7) Polymyalgia rheumatica: Status: Acute (8) Hypertension: Status: Acute (9) DM type 2 (diabetes mellitus, type 2): Status: Acute (10) Hypothyroidism: Status: Acute (11) LBBB (left bundle branch block): Status: Acute (12) Third degree AV block: Status: Acute (13) Hyperkalemia: Status: Acute Additional A&P Information 70-year-old female with past medical history of hypertension, polymyalgia rheumatica on chronic steroids who was recently started on Bactrim for last 10 days because of cellulitis of her lower limbs came to the ER after being intubated in the field after which she developed cardiac arrest for which she had ACLS protocol for 10 minutes. Post [place] patient was in third-degree heart b lock which relieved after dopamine. Check urine drug screen, procalcitonin, blood culture, lactate levels, urinalysis, urine Legionella, sputum culture, urine culture, BMP, ketone levels. Neurology: For now patient does not have any gag reflex. Patient is off sedation and not responsive. Not arousable. We will continue to monitor. CT head done on admission negative for any acute bleed. For now hold off on any further sedation. The patient wakes up we will start him on Precedex and fentanyl. Seizure precaution. Will monitor for seizures. Every neurochecks. Cardiology: Patient has history of hypertension for which she takes atenolol and lisinopril at home. Keep mean arterial pressures over 65 mmHg. For now patient is on levo fed will titrate accordingly. Patient on arrival was in third-degree heart block. Right now patient is having sinus tachycardia with left bundle branch block and a possible fourth degree heart block. Given the presentation to the hospital cannot rule out acute coronary syndrome with the patient. No old EKG in the system to compare. Congestive heart failure: Start patient on Lasix 60 mg IV every 12 hourly. We will monitor input and output strictly. Daily weights. Echocardiogram start to look for EF, valvular disease, regional wall motion abnormality, IVC. Patient has hyperkalemia will treat accordingly. Continue with telemetry monitoring. Baseline troponin 100. We will continue to monitor troponin levels. We will check lipid panel. Start patient on aspirin through the NG tube. Pulmonology: ARDS: Most likely because of pneumonia versus congestive heart failure. For now start patient on broad-spectrum antibiotics with vancomycin and imipen em. Will dose antibiotics renally. Diuresis as above. ABG from admission appreciated. For now continue ventilator settings with high PEEP. Repeat ABG in 2 hours. Will change the ventilator settings accordingly. Advair, Spiriva. Chest vest. Rapid antigen was negative. Patient has a known exposure to COVID-19 with son-in-law around 1 month ago. Will check COVID-19 PCR. Isolation precautions till then. GI: N.p.o. for now. Protonix OPD prophylaxis. Continue with NG tube. Renal: Acute renal failure. Creatinine of 2.1. Most likely because of combination of dehydration, Bactrim, lisinopril. Medication reconciliation done for nephrotoxic drugs. Will dose antibiotics renally. Hypokalemia: Treat with sodium bicarbonate 50 mcg, insulin 10 units D50. BMP every 6 hours for now. Acidosis: Mixed respiratory and metabolic. We will treat as above and continue to follow. Infectious: Start patient on broad-spectrum antibiotics with vancomycin and imipenem along with azithromycin for atypical coverage. Sent blood cultures, urine culture, sputum culture, urine Legionella, MRSA swab. Will de-escalate antibiotics accordingly. Endocrine: Patient's blood sugar elevated. Most likely stress-induced. We will check ketones. Target blood sugar around 200. For now we will start patient on insulin drip. Check blood sugars every 1 hour. Check ketone levels to rule out diabetic ketoacidosis. Patient takes prednisone 10 mg at home daily for polymyalgia rheumatica. For now start patient on methyl prednisone 125 mg stat followed by 60 mg IV every 6 hours. Goals of care: Discussed in detail with patient's son at bedside. Discussed that patient has a very very poor guarded prognosis because of cardiac arrest and respiratory arrest. Also discussed that it is quite possible that patient has brain injury or even possible has no brain functions. Discussed that we will continue to monitor for now. For now patient is full code. Family is also okay with dialysis if required. Heparin 5000 every 12 for DVT prophylaxis. Famotidine for PUD prophylaxis. Full code. Attestations Medical Necessity Statement*: More than 2 midnights for ARDS, septic shock, cardiac arrest, respiratory arrest Critical Care Time: Vent setting, no repeat setting, insulin drip Critical Care Time (min): 120 Coding Level of Care Code Acute Vacuum Drier Operator for Chg Fwd Diagnoses Septic shock A41.9; R65.21 Cardiac arrest I46.9 Acute respiratory failure J96.01; J96.02 Respiratory failure complication: hypoxia and hypercapnia Acute renal failure N17.9 Acute renal failure type: unspecified ARDS (adult respiratory distress syndrome) J80 Acidosis, metabolic, with respiratory acidosis E87.4 Polymyalgia rheumatica M35.3 Hypertension I10 DM type 2 (diabetes mellitus, type 2) E11.9 Hypothyroidism E03.9 LBBB (left bundle branch block) I44.7 Third degree AV block I44.2 Hyperkalemia E87.5
--- NOTE | 2020-04-03 15:25 | PC.NURSE ---
urine output of 1650 removed from indwelling gifford catheter bag.
[2020-04-03 15:29] LABS: Ketone (Acetest) Serum Negative (Negative)
--- NOTE | 2020-04-03 16:04 | PC.NURSE ---
SEE THE CODE FLOW SHEET
--- NOTE | 2020-04-03 16:06 | PC.NURSE ---
ATTEMPTED REPORT NURSE UNAVAILABLE.
[2020-04-03 16:30] LABS: ABG PH Result 7.14 (7.35-7.45); Base Excess ABG -6.8 mmol/L (-2.0-2.0); HCO3 ABG 22.9 mmol/L (22-26); PO2 ABG 54.1 mmHg (80.0-100.0)
[2020-04-03 16:31] LABS: Blood Gas Allen Test POS; Blood Gas Vent Mode CMV; Oxygen Device VENT; Oxygen Saturation ABG 78.2; Potassium Level - ABG 5.1 mmol/L (3.5-5.0)
[2020-04-03 16:32] LABS: Alveolar-Arterial Oxygen Gradi 570.9 mmHg (5-10); Arterial Blood Gas Hematocrit 34.1 % (37-47); Blood Gas Sample Site RIGHT RADIAL; Blood Gas Sample Type ARTERIAL; Carboxyhemoglobin 1.3 %THgb (0.4-20.1); HGB O2 Sat 78.2 % (95-100); Ionized Calcium Level - ABG 1.2 mmol/L (1.1-1.4); Methemoglobin 0.8 % (0.4-1.5); Total Hemoglobin 11.1 g/dL (12-16)
[2020-04-03 16:33] LABS: Lactate (Lactic Acid level) 6.5 mmol/L (0.5-2.2)
[2020-04-03] MEDS: famotidine 20 mg/2 mL INJ IVP (16:55)
[2020-04-03] MEDS: heparin 5,000 unit/mL INJ 1 mL 5000 UNIT SUBCUT (18:13)
[2020-04-03] MEDS: insulin regular-human 250 UNIT in sodium chloride 0.9% 250 ML 9.1 UNIT IV (18:23)
[2020-04-03 19:39] LABS: Glucose Point of Care 377 mg/dL (70-110)
[2020-04-03 19:39] LABS: Glucose Point of Care 362 mg/dL (70-110)
[2020-04-03 19:40] LABS: Influenza A by IFA Negative (Negative); Influenza B by IFA Negative (Negative)
--- NOTE | 2020-04-03 20:15 | PC.NURSE ---
nurse spoke to dr freitas at 1920 verbalized patient condition and placed orders per physician request with readback. verbalized ok to d/c pt insulin gtt when bg is less than 250 and anion gap is closed for two consecutive checks.
--- NOTE | 2020-04-03 20:17 | PC.NURSE ---
dr latif notified patient b/p [id number] and received approval to hold lasix dose. Nurse notified physician patient appears uncomfortable with ventalation and has been observed attempting to bite tube and is breathing heavily with her belly. Received approval for fentaly sedation infusion.
[2020-04-03 20:23] LABS: Lactate (Lactic Acid level) 6.2 mmol/L (0.5-2.2)
[2020-04-03 20:31] LABS: NT Pro B Type Natriuretic Pept 8022 pg/mL (0-450)
[2020-04-03 21:50] LABS: Anion Gap 23.1 (5-19); Blood Urea Nitrogen 23 mg/dL (8-23); Calcium 8.3 mg/dL (8.5-10.5); Carbon Dioxide 19 mmol/L (22-29); Chloride 99 mmol/L (98-107); Glucose 363 mg/dL (65-115); Osmolality Calculated 300 mOsm/kg (285-295); Potassium 5.1 mmol/L (3.5-5.1); Sodium 136 mmol/L (136-145)
[2020-04-03] MEDS: sodium chloride 0.9% 1,000 ML 999 ML IV (22:06)
[2020-04-03 23:24] LABS: ABG PCO2 33.6 mmHg (35-45); ABG PH Result 7.42 (7.35-7.45); Arterial Blood Gas Hematocrit 35.4 % (37-47); Base Excess ABG -2.1 mmol/L (-2.0-2.0); Blood Gas Sample Type Arterial; Carboxyhemoglobin 1.1 %THgb (0.4-20.1); HCO3 ABG 21.8 mmol/L (22-26); HGB O2 Sat 90.4 % (95-100); Ionized Calcium Level - ABG 1.1 mmol/L (1.1-1.4); Methemoglobin 0.6 % (0.4-1.5); PO2 ABG 57.6 mmHg (80.0-100.0); Potassium Level - ABG 4.7 mmol/L (3.5-5.0); Total Hemoglobin 11.5 g/dL (12-16)
[2020-04-03 23:26] LABS: Blood Gas Sample Site Brachial, right; Oxygen Device VENT
[2020-04-04] VITALS (138 sets, daily range): BP systolic 86–188; BP diastolic 35–126; PULSE 68–93; RESP 10–20; TEMP 36.7–37.9; O2SAT 84–100; BMI 31.6
[2020-04-04 01:28] LABS: Anion Gap 18.9 (5-19); Blood Urea Nitrogen 26 mg/dL (8-23); Carbon Dioxide 23 mmol/L (22-29); Chloride 100 mmol/L (98-107); Creatinine Clr Calc Pharmacy 24.7271; Glucose 199 mg/dL (65-115); Osmolality Calculated 294 mOsm/kg (285-295); Potassium 4.9 mmol/L (3.5-5.1); Sodium 137 mmol/L (136-145)
[2020-04-04] MEDS: ipratropium-albuterol 3 mL Neb INHALATION ×4 (02:24→21:06)
[2020-04-04] MEDS: famotidine 20 mg/2 mL INJ IVP ×2 (03:26→15:50)
[2020-04-04 04:18] LABS: Basophils # 0.1 10^3/uL (0.0-0.1); Basophils % 0.3 %; Hematocrit 29.9 % (37.0-47.0); Hemoglobin 9.6 g/dL (11.5-15.3); Lymphocytes # 1.1 10^3/uL (0.8-4.8); Mean Corpuscular HGB Conc 32.1 g/dL (30.0-36.0); Mean Corpuscular Hemoglobin 31.7 pg (28.0-34.0); Mean Corpuscular Volume 98.7 fL (81-99); Monocytes % 7.6 %; Neutrophils % 86.2 %; Nucleated Red Blood Cells % 0 %; Platelet Count 361 10^3/cmm (130-400); Red Blood Count 3.03 10^6/uL (4.1-5.3); Red Cell Distribution Width 14.3 % (12.1-15.1); White Blood Count 26.1 10^3/uL (4.0-10.0)
[2020-04-04 04:45] LABS: Estmated Average Glucose 151; Hemoglobin A1C 6.9 % (4.0-6.0)
[2020-04-04 04:46] LABS: Alanine Aminotransferase 328 U/L (0-33); Albumin Level 3.1 g/dL (3.5-5.2); Alkaline Phosphatase 96 IU/L (35-105); Anion Gap 18.1 (5-19); Aspartate Amino Transferase 452 U/L (0-32); Blood Urea Nitrogen 24 mg/dL (8-23); Calcium 8.4 mg/dL (8.5-10.5); Carbon Dioxide 22 mmol/L (22-29); Chloride 104 mmol/L (98-107); Globulin 2.5 g/dL (1.3-4.6); Glucose 86 mg/dL (65-115); Magnesium 1.6 mg/dL (1.7-2.3); Osmolality Calculated 291 mOsm/kg (285-295); Phosphorus 3.7 mg/dL (2.5-4.5); Potassium 5.1 mmol/L (3.5-5.1); Sodium 139 mmol/L (136-145); Total Bilirubin 0.2 mg/dL (0.15-1.2); Total Protein 5.6 g/dL (6.6-8.7)
[2020-04-04] MEDS: heparin 5,000 unit/mL INJ 1 mL 5000 UNIT SUBCUT ×2 (05:18→15:50)
[2020-04-04] MEDS: dextrose 5%-sod chloride 0.9% 1,000 ML 100 ML IV (05:35)
[2020-04-04 05:58] LABS: Glucose Point of Care 88 mg/dL (70-110)
[2020-04-04 05:58] LABS: Glucose Point of Care 103 mg/dL (70-110)
[2020-04-04 05:58] LABS: Glucose Point of Care 211 mg/dL (70-110)
[2020-04-04 05:58] LABS: Glucose Point of Care 153 mg/dL (70-110)
[2020-04-04 05:58] LABS: Glucose Point of Care 85 mg/dL (70-110)
--- NOTE | 2020-04-04 06:00 | XRR_ITS ---
PROCEDURE INFORMATION: Exam: XR Chest, 1 View Exam date and time: 04/04/2020 4:51 AM Age: 79 years old Clinical indication: Device placement; Ett placement (vent status); Additional info: Intubated TECHNIQUE: Imaging protocol: XR of the chest Views: 1 view. COMPARISON: CR XR chest 1V portable [id number] 04/03/2020 11:57 AM FINDINGS: Tubes, catheters and devices: An endotracheal tube is placed with its tip approximately 2 cm from the franklyn. There has been interval removal of the transcutaneous pacemaker leads. EKG leads overlie the chest. A nasogastric tube is present with its tip at least in the proximal stomach. Lungs: Bilateral pulmonary infiltrates are again seen unchanged from yesterday. Pleural space: Unremarkable. No pleural effusion. No pneumothorax. Heart/Mediastinum: Unremarkable. No cardiomegaly. Bones/joints: Unremarkable. XR/XR chest 1V portable [id number] IMPRESSION: 1. Endotracheal tube tip approximately 2 cm from the franklyn. 2. Nasogastric tube at least in proximal stomach. 3. Diffuse bilateral infiltrates unchanged from yesterday's examination.
[2020-04-04] MEDS: dextrose 5%-sod chloride 0.9% 1,000 ML 100 ML (06:13)
[2020-04-04] MEDS: FUROsemide 10 mg/mL SDV 10mL 60 MG IVP (06:30)
[2020-04-04 06:33] LABS: ABG PCO2 40.4 mmHg (35-45); ABG PH Result 7.41 (7.35-7.45); Alveolar-Arterial Oxygen Gradi 33.4 mmHg (5-10); Arterial Blood Gas Hematocrit 26.9 % (37-47); Base Excess ABG 0.5 mmol/L (-2.0-2.0); Blood Gas Sample Site Brachial, left; Blood Gas Sample Type Arterial; Carboxyhemoglobin 1.1 %THgb (0.4-20.1); HCO3 ABG 25.3 mmol/L (22-26); HGB O2 Sat 86.3 % (95-100); Ionized Calcium Level - ABG 1.1 mmol/L (1.1-1.4); Methemoglobin 0.7 % (0.4-1.5); Oxygen Device VENT; Oxygen Saturation ABG 87.9; PO2 ABG 52.3 mmHg (80.0-100.0); Potassium Level - ABG 5.4 mmol/L (3.5-5.0); Total Hemoglobin 8.8 g/dL (12-16)
--- NOTE | 2020-04-04 06:43 | PC.NURSE ---
received call from dr latif requesting nurse to d/c any IV dextrose fluids due to fluid overload concerns. Nurse advised physician patient is npo currently however declined fluids at this time
--- NOTE | 2020-04-04 07:26 | XRR_ITS ---
PROCEDURE INFORMATION: Exam: XR Left Knee Exam date and time: 04/04/2020 7:29 AM Age: 79 years old Clinical indication: Swelling, leg or foot TECHNIQUE: Imaging protocol: XR Left knee. Views: 1 or 2 views. COMPARISON: No relevant prior studies available. FINDINGS: Bones/joints: Osteopenia. Degenerative change , intra-articular calcification, and joint effusion. Soft tissues: Diffuse soft tissue prominence. Vasculature: Vascular calcification. XR/XR knee LT 1-2V [id number] IMPRESSION: Degenerative change , intra-articular calcification, and joint effusion.
[2020-04-04] MEDS: FUROsemide 10 mg/mL SDV 10mL 100 MG IVP ×2 (07:30→13:23)
--- NOTE | 2020-04-04 07:30 | PM.PN ---
Subjective Subjective: Interval history: Patient was seen at bedside. On examination patient is sleepy but arousable. She is responding to simple commands and is able to answer to nodding head. She denies of having any pain. Overnight patient has remained on Levophed of 1. Insulin drip was discontinued as her anion gap had closed. As of now she is on fentanyl 125 mics with mean arterial pressures of 71. She is on pressure support of 12 with a PEEP of 10 saturating 96%. As per the report in the chart patient has had 1100 cc of urine output since admission though it seems to be wrong. Overnight patient has had high cuff pressures. Patient had a 6.5 ET tube which was placed by EMS in the ambulance via transport. ET tube changed to a higher cuff size. Chest x-ray reviewed. Vitals/I&O/Wt Last Vital Signs Temp 99.0 F 04/04/20 04:00 Pulse 79 04/04/20 06:15 Resp 10 L 04/04/20 05:32 BP 107/48 04/04/20 06:15 Pulse Ox 91 04/04/20 06:15 04/03/20 04/04/20 04/04/20 22:59 06:59 14:59 Intake Total 647.255 / 598.694 7225.670 / 3003.925 Output Total 1200 / 1200 Balance 647.255 / 639.311 7121.670 / 1803.925 Weight last 48 hrs Weight 86.183 kg Weight 86.183 kg Physical Exam Narrative: EXAM NARRATIVE: General: Sedated, arousable. On arousal following commands, conversing through sign languages. Seems appropriate. HEENT: PERRLA, pupils bilaterally equal and reactive Chest: Bilateral coarse crackles present all over the lung conroy, decreased air entry in the lower zones bilaterally. CVS: S1-S2 regular, tachycardia, S3 gallop, JVD elevated, hepato-reflux present Abdomen: Soft, nontender, no organomegaly, bowel sounds present Neuro: Not arousable, GCS: E2 M4 ET tube Urinary Catheter Management^: Doherty: Cath Placed During This Visit: yes Reason for Continuing Indwelling Catheter: Accurate Measurement of Urinary Output in Critically Ill Patients Urinary Catheter Date of Insertion: 04/03/20 Urinary Catheter Time of Insertion: 11:55 Data : 04/04/20 04:00 04/04/20 04:00 Micro: Microbiology 04/03/20 12:21 Gram Stain - Final Sputum - Endotracheal Tube Aspirate 04/03/20 11:40 Legionella Urinary Antigen - Final Urine Catheterized A&P Assessment and plan (1) Septic shock: Status: Acute (2) Cardiac arrest: Status: Acute (3) Acute respiratory failure: Status: Acute Qualifiers: Respiratory failure complication: hypoxia and hypercapnia Qualified Code(s): J96.01 - Acute respiratory failure with hypoxia; J96.02 - Acute respiratory failure with hypercapnia (4) Acute renal failure: Status: Acute Qualifiers: Acute renal failure type: unspecified Qualified Code(s): N17.9 - Acute kidney failure, unspecified (5) ARDS (adult respiratory distress syndrome): Status: Acute (6) Acidosis, metabolic, with respiratory acidosis: Status: Acute (7) Polymyalgia rheumatica: Status: Acute (8) Hypertension: Status: Acute (9) DM type 2 (diabetes mellitus, type 2): Status: Acute (10) Hypothyroidism: Status: Acute (11) LBBB (left bundle branch block): Status: Acute (12) Third degree AV block: Status: Acute (13) Hyperkalemia: Status: Acute (14) DKA (diabetic ketoacidoses): Status: Acute Additional A&P Information 70-year-old female with past medical history of hypertension, polymyalgia rheumatica on chronic steroids who was recently started on Bactrim for last 10 days because of cellulitis of her lower limbs came to the ER after being intubated in the field after which she developed cardiac arrest for which she had ACLS protocol for 10 minutes. Post Nadira patient was in third-degree heart block which relieved after dopamine. Check urine drug screen, procalcitonin, blood culture, lactate levels, urinalysis, urine Legionella, sputum culture, urine culture, BMP, ketone levels. Neurology: Awake and arousable on vent. On Fentanyl 125 mcg/hr. CT head done on admission negative for any acute bleed. Start patient on Versed along with fentanyl. Will wean off fentanyl to a lower dose accordingly. Sedation vacation. Seizure precautions. Cardiology: Patient has history of hypertension for which she takes atenolol and lisinopril at home. Keep mean arterial pressures over 65 mmHg. Continue Levophed and titrate accordingly. Patient on arrival was in third-degree heart block. Right now patient is having sinus tachycardia with left bundle branch block and a possible fourth degree heart block. Given the presentation to the hospital cannot rule out acute coronary syndrome with the patient. No old EKG in the system to compare. No more heart block anymore at present. Troponins trending up. Could be secondary to cardiac arrest and CPR. Cannot rule out ACS. Echocardiogram results appreciated. Patient might require angiogram going forward once she is more stabilized. We will start patient on aspirin. Will check lipid panel, HbA1c. We will hold off on statins for now because of liver dysfunction most likely because of shock liver. Will add troponin to morning labs. Congestive heart failure: Patient still looking fluid overloaded on chest x-ray on clinically. We will increase Lasix to 100 mg twice daily. If the urine output does not improve patient will most likely require Lasix drip versus dialysis. We will continue to monitor and if required will consult nephrology. We will monitor input and output strictly. Daily weights. Echocardiogram shows an EF of 40% with questionable regional wall motion abnormality because of technical difficulty. Pulmonology: Cough pressures from the ET tube elevated overnight. Patient has a 6.5 ET tube. We will try to change the ET tube over the guidewire. ARDS: Most likely because of pneumonia versus congestive heart failure. For now start patient on broad-spectrum antibiotics with vancomycin and imipenem. Will dose antibiotics renally. Diuresis as above. Titrate ventilator settings keeping saturation over 90% with PCO2 over 45. ABG from admission appreciated. No plan for extubation today. We will diurese more. Sedate. COVID-19 results awaited. Continue with isolation precautions. Advair, Spiriva. Chest vest. GI: N.p.o. for now. Protonix OPD prophylaxis. Continue with NG tube. Renal: Acute renal failure. Creatinine stable. Most likely because of combination of dehydration, Bactrim, lisinopril. Medication reconciliation done for nephrotoxic drugs. Will dose antibiotics renally. Hyperkalemia: Resolved. Continue to monitor BMP daily for now. Acidosis: Resolved. Mixed respiratory and metabolic. We will treat as above and continue to follow. Infectious: Start patient on broad-spectrum antibiotics with vancomycin and imipenem along with azithromycin for atypical coverage. MRSA, Legionella negative. If patient continues to do well can discontinue vancomycin tomorrow. Will finish a 3-day course of azithromycin. Continue to follow blood cultures. Patient has left knee swelling along with possible effusion and ecchymosis. Will get knee x-ray. If patient blood cultures come back positive most likely will have to have arthrocentesis to rule out septic joint. For now patient has other sources of infection which are more possible. COVID-19 results elevated. Endocrine: DKA resolved. Continue with insulin sliding scale at moderate dose with every 6 checks. Patient takes prednisone 10 mg at home daily for polymyalgia rheumatica. Continue with methylprednisolone at 60 mg IV every 6 hours. Goals of care: Discussed in detail with patient's son at bedside. Discussed that patient has a very very poor guarded prognosis because of cardiac arrest and respiratory arrest. Also discussed that it is quite possible that patient has brain injury or even possible has no brain functions. Discussed that we will continue to monitor for now. For now patient is full code. Family is also okay with dialysis if required. Heparin 5000 every 12 for DVT prophylaxis. Famotidine for PUD prophylaxis. Full code. 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 Operator for [facility] Diagnoses Septic shock A41.9; R65.21 Cardiac arrest I46.9 Acute respiratory failure J96.01; J96.02 Respiratory failure complication: hypoxia and hypercapnia Acute renal failure N17.9 Acute renal failure type: unspecified ARDS (adult respiratory distress syndrome) J80 Acidosis, metabolic, with respiratory acidosis E87.4 Polymyalgia rheumatica M35.3 Hypertension I10 DM type 2 (diabetes mellitus, type 2) E11.9 Hypothyroidism E03.9 LBBB (left bundle branch block) I44.7 Third degree AV block I44.2 Hyperkalemia E87.5 DKA (diabetic ketoacidoses) E11.10
[2020-04-04 07:51] LABS: Absolute Neutrophil 25.1 10^3/cmm (1.4-6.5); Lymphocytes 2 %; Monocytes Absolute 0.5 10^3/cmm (0.1-0.6); Platelet Estimate Normal (Normal); Segmented Neutrophils 92 %; Total Cells Counted 100 (0-100)
[2020-04-04 08:18] LABS: Glucose Point of Care 251 mg/dL (70-110)
[2020-04-04 08:18] LABS: Glucose Point of Care 317 mg/dL (70-110)
[2020-04-04 08:18] LABS: Glucose Point of Care 323 mg/dL (70-110)
[2020-04-04 08:18] LABS: Glucose Point of Care 277 mg/dL (70-110)
[2020-04-04] MEDS: magnesium sulfate premix 2 GM/50 ML PIGGYBACK IV (08:41)
[2020-04-04] MEDS: ascorbic acid 500 mg Tablet OG-TUBE (08:43)
[2020-04-04] MEDS: azithromycin 500 MG in sodium chloride 0.9% 250 ML 250 MG IV (08:43)
[2020-04-04] MEDS: levothyroxine 100 mcg SDV 55 MCG IVP (08:44)
--- NOTE | 2020-04-04 09:55 | XRR_ITS ---
PROCEDURE INFORMATION: Exam: XR Chest, 1 View Exam date and time: 04/04/2020 9:56 AM Age: 79 years old Clinical indication: Device placement; Ett placement (vent status); Additional info: Tube placement TECHNIQUE: Imaging protocol: XR of the chest Views: 1 view. COMPARISON: CR (CHEST, ) 04/04/2020 4:36 AM FINDINGS: Tubes, catheters and devices: Endotracheal and feeding tubes again demonstrated. The endotracheal tube terminates 5.7 cm above the franklyn. Lungs: Marked interval improvement in bilateral airspace disease, the rapidity of which would favor pulmonary edema as the underlying etiology. Interstitial disease. Pleural space: Incomplete visualization of the left costophrenic angle. No significant right pleural effusion. Heart/Mediastinum: No cardiomegaly. Bones/joints: Osteopenia and degenerative change. XR/XR chest 1V portable [id number] IMPRESSION: 1. Marked interval improvement in bilateral airspace disease, the rapidity of which would favor pulmonary edema as the underlying etiology. 2. Endotracheal and feeding tubes again demonstrated. The endotracheal tube terminates 5.7 cm above the franklyn.
[2020-04-04] MEDS: rocuronium 10 mg/mL INJ 5mL 40 MG IV (10:14)
--- NOTE | 2020-04-04 14:36 | PC.NURSE ---
3 gold rings removed from the patients left hand. placed in chart.
[2020-04-04 14:51] LABS: Troponin T (5th) Once 2397 ng/L (0-10)
[2020-04-04 15:21] LABS: ABG PCO2 36.7 mmHg (35-45); ABG PH Result 7.48 (7.35-7.45); Arterial Blood Gas Hematocrit 27.1 % (37-47); Base Excess ABG 3.2 mmol/L (-2.0-2.0); Blood Gas Allen Test Pos; Blood Gas Operator Identificat CAK; Blood Gas Sample Site Brachial, left; Blood Gas Sample Type Arterial; Oxygen Device VENT; PO2 ABG 79.3 mmHg (80.0-100.0)
[2020-04-04] MEDS: aspirin 81 mg EC Tablet PO (17:35)
[2020-04-04 18:08] LABS: Platelet Count 298 10^3/cmm (130-400)
[2020-04-04] MEDS: heparin drip 25,000 UNIT/500 ML PREMIX 44.8 UNIT IV (18:23)
[2020-04-04 21:30] LABS: Glucose Point of Care 171 mg/dL (70-110)
[2020-04-04 21:44] LABS: Glucose Point of Care 167 mg/dL (70-110)
[2020-04-04 21:44] LABS: Glucose Point of Care 170 mg/dL (70-110)
[2020-04-04 21:44] LABS: Glucose Point of Care > 600 mg/dL (70-110)
[2020-04-04 21:44] LABS: Glucose Point of Care 129 mg/dL (70-110)
[2020-04-05] VITALS (113 sets, daily range): BP systolic 91–183; BP diastolic 36–94; PULSE 66–104; RESP 12–22; TEMP 36.7–37.1; O2SAT 90–100; BMI 31.6; BMI 34.2
--- NOTE | 2020-04-05 01:30 | PC.NURSE ---
will redraw PTT via peripheral stick, will cotninue to monitor.
[2020-04-05] MEDS: ipratropium-albuterol 3 mL Neb INHALATION ×3 (02:08→15:24)
[2020-04-05 02:59] LABS: Alanine Aminotransferase 202 U/L (0-33); Albumin Level 2.8 g/dL (3.5-5.2); Alkaline Phosphatase 82 IU/L (35-105); Anion Gap 19.3 (5-19); Aspartate Amino Transferase 157 U/L (0-32); Blood Urea Nitrogen 27 mg/dL (8-23); Calcium 8.5 mg/dL (8.5-10.5); Carbon Dioxide 23 mmol/L (22-29); Chloride 99 mmol/L (98-107); Glucose 180 mg/dL (65-115); Osmolality Calculated 294 mOsm/kg (285-295); Potassium 4.3 mmol/L (3.5-5.1); Sodium 137 mmol/L (136-145); Total Bilirubin 0.3 mg/dL (0.15-1.2); Total Protein 5.8 g/dL (6.6-8.7)
[2020-04-05 03:02] LABS: Partial Thromboplastin Time 215.3 SECONDS (23.9-36.7)
[2020-04-05 03:15] LABS: Magnesium 2.1 mg/dL (1.7-2.3); Phosphorus 5.4 mg/dL (2.5-4.5)
[2020-04-05 04:34] LABS: ABG PCO2 38.1 mmHg (35-45); ABG PH Result 7.45 (7.35-7.45); Alveolar-Arterial Oxygen Gradi 17.5 mmHg (5-10); Arterial Blood Gas Hematocrit 29.8 % (37-47); Base Excess ABG 2.2 mmol/L (-2.0-2.0); Blood Gas Allen Test Pos; Blood Gas Sample Site Radial, right; Blood Gas Sample Type Arterial; Blood Gas Tidal Volume 0.45; Carboxyhemoglobin 1.1 %THgb (0.4-20.1); HCO3 ABG 26.3 mmol/L (22-26); HGB O2 Sat 92.6 % (95-100); Ionized Calcium Level - ABG 1.2 mmol/L (1.1-1.4); Methemoglobin 0.8 % (0.4-1.5); Oxygen Device VENT; Oxygen Saturation ABG 94.4; PO2 ABG 69.5 mmHg (80.0-100.0); Potassium Level - ABG 3.9 mmol/L (3.5-5.0); Total Hemoglobin 9.7 g/dL (12-16)
[2020-04-05] MEDS: famotidine 20 mg/2 mL INJ IVP (04:37)
--- NOTE | 2020-04-05 06:00 | XRR_ITS ---
PROCEDURE INFORMATION: Exam: XR Chest, 1 View Exam date and time: 04/05/2020 6:21 AM Age: 79 years old Clinical indication: Device placement; Ett placement (vent status); Additional info: Intubated TECHNIQUE: Imaging protocol: XR of the chest Views: 1 view. COMPARISON: CR (CHEST, ) 04/04/2020 10:32 AM FINDINGS: Tubes, catheters and devices: An endotracheal tube is placed with its tip approximately 2.6 cm from the franklyn. A nasogastric tube is present with its tip at least in the mid stomach. EKG leads overlie the chest. Lungs: There is indistinctness of the pulmonary vasculature and hazy and strandy opacities present in the mid lower hemithoraces, findings suggesting pulmonary edema. There has been some improvement in aeration in the lungs compared with yesterday's examination. Pleural space: Unremarkable. No pleural effusion. No pneumothorax. Heart/Mediastinum: Unremarkable. No cardiomegaly. Bones/joints: Unremarkable. XR/XR chest 1V portable [id number] IMPRESSION: 1. Probable improving pulmonary edema. 2. Endotracheal tube tip 2.6 cm from the franklyn. 3. Nasogastric tube tip at least in mid stomach.
[2020-04-05 06:09] LABS: Partial Thromboplastin Time 105.8 SECONDS (23.9-36.7)
[2020-04-05 08:40] LABS: Partial Thromboplastin Time 34.9 SECONDS (23.9-36.7)
--- NOTE | 2020-04-05 09:58 | PM.PN ---
Subjective Subjective: Interval history: No acute events overnight. On examination patient is comfortable. She is arousable to touch. She is on fentanyl and Precedex at half the dose. She is maintaining 96% on ventilator with setting of tidal volume of 450, PEEP of 10, FiO2 35% on CMV mode. Patient's vitals have been stable and has remained afebrile overnight. Documented she has had around 4.8 L urine output in last 24 hours and is overall 1800 cc negative since admission. Vitals/I&O/Wt Last Vital Signs Temp 98.7 F 04/05/20 08:00 Pulse 74 04/05/20 09:38 Resp 16 04/05/20 09:38 BP 159/57 04/05/20 08:00 Pulse Ox 96 04/05/20 09:38 04/04/20 04/05/20 04/05/20 22:59 06:59 14:59 Intake Total 1271.440 / 2192.013 970.277 / 3162.290 101.125 / 101.125 Output Total 2000 / 4000 750 / 4750 Balance -728.560 / -1807.987 220.277 / -1587.710 101.125 / 101.125 Weight last 48 hrs Weight 93.44 kg Weight 86.183 kg Weight 86.183 kg Weight 86.183 kg Physical Exam Narrative: EXAM NARRATIVE: General: Sedated, arousable. On arousal following commands, conversing through sign languages. Seems appropriate. HEENT: PERRLA, pupils bilaterally equal and reactive Chest: Bilateral coarse crackles present all over the lung conroy, decreased air entry in the lower zones bilaterally. CVS: S1-S2 regular, tachycardia, S3 gallop, JVD elevated, hepato-reflux present Abdomen: Soft, nontender, no organomegaly, bowel sounds present Neuro: Not arousable, GCS: E2 M4 ET tube Urinary Catheter Management^: Doherty: Cath Placed During This Visit: yes Reason for Continuing Indwelling Catheter: Accurate Measurement of Urinary Output in Critically Ill Patients Urinary Catheter Date of Insertion: 04/03/20 Urinary Catheter Time of Insertion: 11:55 Data : 04/04/20 17:48 04/05/20 02:30 Micro: Microbiology 04/03/20 12:21 Gram Stain - Final Sputum - Endotracheal Tube Aspirate Sputum Culture - Preliminary 04/03/20 18:45 MRSA Culture - Final Nose 04/04/20 11:05 Blood Culture - Preliminary Blood SPECIMEN COLLECTED 04/04/20 10:51 Blood Culture - Preliminary Blood SPECIMEN COLLECTED A&P Assessment and plan (1) Septic shock: Status: Acute (2) Cardiac arrest: Status: Acute (3) Acute respiratory failure: Status: Acute Qualifiers: Respiratory failure complication: hypoxia and hypercapnia Qualified Code(s): J96.01 - Acute respiratory failure with hypoxia; J96.02 - Acute respiratory failure with hypercapnia (4) Acute renal failure: Status: Acute Qualifiers: Acute renal failure type: unspecified Qualified Code(s): N17.9 - Acute kidney failure, unspecified (5) ARDS (adult respiratory distress syndrome): Status: Acute (6) Acidosis, metabolic, with respiratory acidosis: Status: Acute (7) Polymyalgia rheumatica: Status: Acute (8) Hypertension: Status: Acute (9) DM type 2 (diabetes mellitus, type 2): Status: Acute (10) Hypothyroidism: Status: Acute (11) LBBB (left bundle branch block): Status: Acute (12) Third degree AV block: Status: Acute (13) Hyperkalemia: Status: Acute (14) DKA (diabetic ketoacidoses): Status: Acute Additional A&P Information 70-year-old female with past medical history of hypertension, polymyalgia rheumatica on chronic steroids who was recently started on Bactrim for last 10 days because of cellulitis of her lower limbs came to the ER after being intubated in the field after which she developed cardiac arrest for which she had ACLS protocol for 10 minutes. Post Navarro patient was in third-degree heart block which relieved after dopamine. Neurology: Awake and arousable on vent. Continue fentanyl and Versed. CT head done on admission negative for any acute bleed. Sedation vacation. Seizure precautions. Cardiology: Patient has history of hypertension for which she takes atenolol and lisinopril at home. Keep mean arterial pressures over 65 mmHg. Titrate Levophed accordingly. Patient on arrival was in third-degree heart block. Right now patient is having sinus tachycardia with left bundle branch block and a possible fourth degree heart block. Given the presentation to the hospital cannot rule out acute coronary syndrome with the patient. No old EKG in the system to compare. No more heart block anymore at present. NSTEMI: Troponins trending up. Could be secondary to cardiac arrest and CPR. Cannot rule out ACS. Cardiology consulted. Because troponin yesterday went up to 2400 chances of NSTEMI are high so she was started on heparin drip. Plan to continue heparin drip for now. If patient improves and depending on the clinical picture. Patient might go for left heart cath during this hospitalization. Echocardiogram results appreciated. Continue with aspirin through the OG tube. We will hold off on statins for now because of liver dysfunction most likely because of shock liver. Will add troponin to morning labs. HbA1c 6.9. Congestive heart failure: Patient still looking fluid overloaded on chest x-ray on clinically. Good urine response yesterday. Overall patient put out 4.8 L yesterday. Continue Lasix 100 mg twice daily. We will monitor input and output strictly. Daily weights. Echocardiogram shows an EF of 40% with questionable regional wall motion abnormality because of technical difficulty. Pulmonology: ET tube changed to bigger size yesterday. ARDS: Most likely because of pneumonia versus congestive heart failure. Continue with imipenem and azithromycin both renally dosed. Diuresis as above. Titrate ventilator settings keeping saturation over 90% with PCO2 over 45. No plan for extubation today. Continue with diuresis. For now we will try to put patient on pressure support for 4 to 5 hours so she can work breathing on her own. COVID-19 results awaited. Continue with isolation precautions. Advair, Spiriva. Chest vest. GI: N.p.o. for now. Protonix twice daily. Continue with NG tube. Renal: Acute renal failure. Creatinine mildly improving today. Most likely because of combination of dehydration, Bactrim, lisinopril. Medication reconciliation done for nephrotoxic drugs. Will dose antibiotics renally. Hyperkalemia: Resolved. Continue to monitor BMP daily for now. Acidosis: Resolved. Mixed respiratory and metabolic. We will treat as above and continue to follow. Infectious: As patient has remained hemodynamically stable and afebrile with MRSA negative we will stop vancomycin and monitor today. Continue with imipenem for possible aspiration along with azithromycin. Patient would most likely require azithromycin for 5-day course. Day 3 today. Patient has left knee swelling along with possible effusion and ecchymosis. Will get knee x-ray. If patient blood cultures come back positive most likely will have to have arthrocentesis to rule out septic joint. For now patient has other sources of infection which are more possible. COVID-19 results elevated. Endocrine: DKA resolved. Continue with insulin sliding scale at moderate dose with every 6 checks. Needed 12 units insulin in last 24 hours. Patient takes prednisone 10 mg at home daily for polymyalgia rheumatica. Continue with methylprednisolone at 60 mg IV every 6 hours. Goals of care: Discussed in detail with patient's son at bedside. Discussed that patient has a very very poor guarded prognosis because of cardiac arrest and respiratory arrest. Also discussed that it is quite possible that patient has brain injury or even possible has no brain functions. Discussed that we will continue to monitor for now. For now patient is full code. Family is also okay with dialysis if required. Heparin 5000 every 12 for DVT prophylaxis. Famotidine for PUD prophylaxis. Full code. Severely guarded prognosis Attestations Medical Necessity Statement*: ARDS, septic shock, intubated, LOIS, NSTEMI, COVID-19 still not ruled out Critical Care Time: Critical Care Time (min): 120 Coding Level of Care Code Acute Process Area Supervisor for [facility] Diagnoses Septic shock A41.9; R65.21 Cardiac arrest I46.9 Acute respiratory failure J96.01; J96.02 Respiratory failure complication: hypoxia and hypercapnia Acute renal failure N17.9 Acute renal failure type: unspecified ARDS (adult respiratory distress syndrome) J80 Acidosis, metabolic, with respiratory acidosis E87.4 Polymyalgia rheumatica M35.3 Hypertension I10 DM type 2 (diabetes mellitus, type 2) E11.9 Hypothyroidism E03.9 LBBB (left bundle branch block) I44.7 Third degree AV block I44.2 Hyperkalemia E87.5 DKA (diabetic ketoacidoses) E11.10
[2020-04-05 10:00] LABS: Basophils # 0.1 10^3/uL (0.0-0.1); Basophils % 0.2 %; Hematocrit 27.2 % (37.0-47.0); Hemoglobin 8.3 g/dL (11.5-15.3); Lymphocytes # 0.9 10^3/uL (0.8-4.8); Lymphocytes % 3.2 %; Mean Corpuscular HGB Conc 30.5 g/dL (30.0-36.0); Mean Corpuscular Hemoglobin 31.6 pg (28.0-34.0); Mean Corpuscular Volume 103.4 fL (81-99); Mean Platelet Volume 11.6 fL (7.4-10.4); Monocytes # 1.2 10^3/uL (0.2-0.9); Monocytes % 4.2 %; Neutrophils # 24.65 10^3/uL (1.8-7.7); Neutrophils % 88.8 %; Nucleated Red Blood Cells % 0 %; Platelet Count 296 10^3/cmm (130-400); Red Blood Count 2.63 10^6/uL (4.1-5.3); Red Cell Distribution Width 14.6 % (12.1-15.1); White Blood Count 27.8 10^3/uL (4.0-10.0)
[2020-04-05] MEDS: aspirin 81 mg Chew Tablet OG-TUBE (10:03)
[2020-04-05] MEDS: azithromycin 500 MG in sodium chloride 0.9% 250 ML 250 MG IV (10:03)
[2020-04-05] MEDS: ascorbic acid 500 mg Tablet OG-TUBE (10:03)
--- NOTE | 2020-04-05 10:21 | PM.CONSULT ---
Providers/Reason For Consult Consulting Physican/Specialty*: Kris Miranda MD/ Cardiology Reason for Consult*: Troponin elevation Attending Physician: Jonathon Zavala MD Primary Care Provider: Jimmy Guzman DO History of Present Illness History of Present Illness Ophelia Wade is a 79 year old female with no significant known CAD, hx of HTN, hypothyroidism, diabetes was brought to the hospital after respiratory arrest and cardiac arrest in the field( rhythm not known), received CPR for 10 minutes. On arrival to ER, she was in 3rd degree heart block. We were called for possible temporary pacemaker, however, with dopamine the third degree heart block resolved. Patient's troponins later trended to 2400. EKG did not show ST elevations. Patient has significant wbc count and elevated procalcitonin. On broadspectrum antibiotics. ECHO was very limited because of mechanical ventilation and limited windows, however, EF is atleast 40%. Has diuresed well and CXR has showed improvement. Currently patient is intubated and sedated but arousable. . Review of Systems General: Reports: ROS unobtainable due to endotracheal tube Meds/Allergies Home Medications and Allergies Home Medications Medication Instructions Recorded Confirmed Last Taken Type alprazolam 0.25 mg PO BID 04/03/20 04/03/20 Unknown History atenolol 50 mg PO DAILY 04/03/20 04/03/20 Unknown History clotrimazole-betamethasone See Rx Instructions .ROUTE .COMPLEX 04/03/20 04/03/20 Unknown History desvenlafaxine succinate 50 mg PO DAILY 04/03/20 04/03/20 Unknown History gabapentin 300 mg PO TID 04/03/20 04/03/20 Unknown History levothyroxine 112 mcg PO DAILY 04/03/20 04/03/20 Unknown History lisinopril 40 mg PO DAILY 04/03/20 04/03/20 Unknown History metformin 1,000 mg PO BID 04/03/20 04/03/20 Unknown History oxycodone 15 mg PO Q4H 04/03/20 04/03/20 Unknown History pantoprazole 20 mg PO DAILY 04/03/20 04/03/20 Unknown History prednisone 10 mg PO DAILY 04/03/20 04/03/20 Unknown History sulfamethoxazole-trimethoprim 1 tab PO BID 04/03/20 04/03/20 Unknown History Allergies Allergy/AdvReac Type Severity Reaction Status Date / Time Penicillins Allergy ALGY-Hives Verified 04/03/20 11:44 Current Medications Current Medications Generic Name Dose Route Start Last Admin Trade Name Freq PRN Reason Stop Dose Admin Albuterol/Ipratropium 3 ml 04/03/20 18:22 04/05/20 09:21 Duoneb INHALATION 3 ml Q6H PRN Administration SHORTNESS OF BREATH Ascorbic Acid 500 mg 04/04/20 09:00 04/04/20 08:43 Vitamin C OG-TUBE 500 mg DAILY STEPHANIE Administration Azithromycin 500 mg/ Sodium 250 mls @ 250 mls/hr 04/04/20 09:00 04/04/20 12:44 Chloride IV Infused DAILY STEPHANIE Infusion Protocol Imipenem/Cilastatin Sodium 250 100 mls @ 200 mls/hr 04/03/20 19:00 04/05/20 07:10 mg/ Sodium Chloride IV Infused Q6H STEPHANIE Infusion Protocol Fentanyl 1,000 mcg/ Sodium 100 mls @ 0 mls/hr 04/03/20 20:15 04/04/20 19:44 Chloride IV Infused .Q0M STEPHANIE Titration Protocol Per Protocol Norepinephrine Bitartrate 4 mg 254 mls @ 0 mls/hr 04/03/20 21:00 04/05/20 08:52 / Dextrose IV 0 mcg/min .Q0M STEPHANIE 0 mls/hr Titration Protocol Per Protocol Midazolam HCl 100 mg/ Sodium 100 mls @ 0 mls/hr 04/04/20 07:30 04/05/20 08:52 Chloride IV 0.5 mg/hr .Q0M STEPHANIE 0.5 mls/hr Titration Protocol Per Protocol Heparin Sodium/Sodium Chloride 25,000 unit in 500 mls @ 0 mls/hr 04/04/20 17:15 04/05/20 06:48 Heparin Drip IV Infused .Q0M STEPHANIE Titration Protocol Per Protocol Insulin Aspart 0 unit 04/04/20 08:00 04/05/20 07:54 Novolog SUBCUT 4 unit WM&BEDTIME STEPHANIE Administration Protocol Levothyroxine Sodium 55 mcg 04/04/20 09:00 04/04/20 08:44 Synthroid IVP 55 mcg DAILY STEPHANIE Administration Methylprednisolone Sodium Succinate 60 mg 04/03/20 16:22 04/05/20 04:38 Solu-Medrol IVP 60 mg Q6H STEPHANIE Administration Fluticasone/Salmeterol 1 puff 04/03/20 20:00 04/05/20 09:22 Advair Diskus 250-50 INHALATION Not Given BID.RESPIRATORY STEPHANIE Thiamine HCl 100 mg 04/04/20 09:00 04/04/20 08:44 Vitamin B-1 IV 100 mg DAILY STEPHANIE Administration Tiotropium Basom 18 mcg 04/04/20 08:00 04/05/20 09:22 Spiriva INHALATION Not Given DAILY.RESPIRATORY STEPHANIE PFSH Acute PFSH: Medical History Anxiety Depression DM type 2 (diabetes mellitus, type 2) Fibromyalgia Hyperlipidemia Hypertension Hypothyroidism Osteoarthritis Osteoporosis Polymyalgia rheumatica Family History Other CAD (coronary artery disease) Diabetes Stroke Social History Smoking and tobacco status: former smoker Alcohol intake: never Household members: spouse Housing: House Vitals/I&O/Wt Last Vital Signs Temp 98.7 F 04/05/20 08:00 Pulse 74 04/05/20 09:38 Resp 16 04/05/20 09:38 BP 159/57 04/05/20 08:00 Pulse Ox 96 04/05/20 09:38 04/04/20 04/05/20 04/05/20 22:59 06:59 14:59 Intake Total 1271.440 / 2192.013 970.277 / 3162.290 101.125 / 101.125 Output Total 2000 / 3999 750 / 4750 Balance -728.560 / -1807.987 220.277 / -1587.710 101.125 / 101.125 Weight last 48 hrs Weight 206 lb Weight 190 lb Weight 190 lb Weight 190 lb Physical Exam Narrative: EXAM NARRATIVE: General: Sedated, arousable. On arousal following commands HEENT: PERRLA, pupils bilaterally equal and reactive Chest: Bilateral coarse crackles CVS: S1-S2 regular, tachycardia, S3 gallop Abdomen: Soft, nontender, no organomegaly, bowel sounds present Urinary Catheter Management^: Doherty: Cath Placed During This Visit: yes Reason for Continuing Indwelling Catheter: Accurate Measurement of Urinary Output in Critically Ill Patients Urinary Catheter Date of Insertion: 04/03/20 Urinary Catheter Time of Insertion: 11:55 Data Micro: Micro: Microbiology 04/03/20 12:21 Gram Stain - Final Sputum - Endotrac heal Tube Aspirate Sputum Culture - P reliminary 04/03/20 18:45 MRSA Culture - Fin al Nose 04/04/20 11:05 Blood Culture - Pr eliminary Blood SPECIMEN [facility] 04/04/20 10:51 Blood Culture - Pr eliminary Blood SPE[facility]EN [facility] A&P Assessment and plan (1) Third degree AV block: Status: Acute (2) ARDS (adult respiratory distress syndrome): Status: Acute (3) Cardiac arrest: Status: Acute (4) Acute respiratory failure: Status: Acute Qualifiers: Respiratory failure complication: hypoxia and hypercapnia Qualified Code(s): J96.01 - Acute respiratory failure with hypoxia; J96.02 - Acute respiratory failure with hypercapnia (5) DM type 2 (diabetes mellitus, type 2): Status: Acute (6) Elevated troponin: Status: Acute Patient's presentation was likely secondary to combination of volume overload (improved CXR with diuresis) and infection (elevated WBC count and procaclitonin of 35). Continue antibiotics, follow cultures and COVID testing. Third degree heart block was likely secondary to electrolyte imbalance and resolved on the day of admission. Continue diuresis. Blood pressure control with beta blockers. Troponin elevation can be secondary to cardiac arrest and CPR. However, can not rule out NSTEMI. Continue anticoagulation with heparin gtt. Continue aspirin daily Cardiology will follow along. Patient will need ischemic workup at some point. Will decide based on her progress. Repeat echo with contrast once patient is extubated to better evaluate the regional wall motion. Coding Level of Care Code Acute Granulating Machine Operator for Chg Fwd Diagnoses Third degree AV block I44.2 ARDS (adult respiratory distress syndrome) J80 Cardiac arrest I46.9 Acute respiratory failure J96.01; J96.02 Respiratory failure complication: hypoxia and hypercapnia DM type 2 (diabetes mellitus, type 2) E11.9 Elevated troponin R79.89
[2020-04-05] MEDS: pantoprazole 40 mg SDV IVP ×2 (10:23→20:37)
[2020-04-05] MEDS: levothyroxine 100 mcg SDV 55 MCG IVP (10:30)
--- NOTE | 2020-04-05 14:53 | PC.NURSE ---
pt self extubated - reintubated pt was heard yelling from outside room, upon entering the room pt's restraints were still tied but pt was slid down in the bed so that restraints were loosened. Pt was yelling help me. Oxygen saturation was mid 80s. Came up to 90% on 6L NC. Cassy entered room immediately and placed patient on 6L nasal canula while setting up bipap. Dr. Zavala was called immediately by Cassy. Attempt was made to place patient on bipap but was unsuccessful due to pt fighting it and yelling. Juan and Dr. Paz arrived from ER. Juan administered succinylcholine and etomidate. Pt was then re-intubated. Oxygen saturation is now 97-100%. Will continue to monitor.
[2020-04-05] MEDS: FUROsemide 10 mg/mL SDV 10mL 100 MG IVP (15:23)
[2020-04-05] MEDS: propofol 1,000 MG/100 ML INJ 2.8 MG IV (16:15)
[2020-04-05 17:27] LABS: Partial Thromboplastin Time 112.2 SECONDS (23.9-36.7)
[2020-04-05 17:35] LABS: Hematocrit 28.1 % (37.0-47.0)
[2020-04-05] MEDS: heparin drip 25,000 UNIT/500 ML PREMIX 20 UNIT IV (18:04)
[2020-04-05 20:31] LABS: Glucose Point of Care 189 mg/dL (70-110)
[2020-04-05 20:31] LABS: Glucose Point of Care 170 mg/dL (70-110)
[2020-04-05 20:31] LABS: Glucose Point of Care 219 mg/dL (70-110)
[2020-04-05 20:31] LABS: Glucose Point of Care 170 mg/dL (70-110)
[2020-04-05] MEDS: propofol 1,000 MG/100 ML INJ 11.2 MG IV (23:07)
[2020-04-06] VITALS (44 sets, daily range): BP systolic 82–203; BP diastolic 33–85; PULSE 60–110; RESP 12–36; TEMP 36.2–36.7; O2SAT 92–100; BMI 33.1
[2020-04-06 00:39] LABS: Partial Thromboplastin Time 118.7 SECONDS (23.9-36.7)
[2020-04-06] MEDS: heparin drip 25,000 UNIT/500 ML PREMIX 17 UNIT IV (00:40)
[2020-04-06] MEDS: ipratropium-albuterol 3 mL Neb INHALATION ×4 (03:08→19:58)
[2020-04-06] MEDS: FUROsemide 10 mg/mL SDV 10mL 100 MG IVP ×2 (04:17→15:31)
[2020-04-06 04:44] LABS: Basophils % 0.2 %; Hematocrit 26.5 % (37.0-47.0); Hemoglobin 8.1 g/dL (11.5-15.3); Lymphocytes # 0.8 10^3/uL (0.8-4.8); Lymphocytes % 3.3 %; Mean Corpuscular HGB Conc 30.6 g/dL (30.0-36.0); Mean Corpuscular Volume 101.5 fL (81-99); Mean Platelet Volume 11.3 fL (7.4-10.4); Monocytes # 1.1 10^3/uL (0.2-0.9); Monocytes % 4.7 %; Neutrophils # 21.52 10^3/uL (1.8-7.7); Neutrophils % 88.6 %; Nucleated Red Blood Cells % 0 %; Platelet Count 300 10^3/cmm (130-400); Red Blood Count 2.61 10^6/uL (4.1-5.3); Red Cell Distribution Width 14.6 % (12.1-15.1); White Blood Count 24.3 10^3/uL (4.0-10.0)
[2020-04-06] MEDS: hyDRALAzine 20 mg/mL INJ 1 mL 10 MG IVP (05:02)
[2020-04-06 05:03] LABS: Magnesium 2.1 mg/dL (1.7-2.3); Phosphorus 4.9 mg/dL (2.5-4.5)
--- NOTE | 2020-04-06 06:00 | XRR_ITS ---
PROCEDURE INFORMATION: Exam: XR Chest, 1 View Exam date and time: 04/06/2020 5:04 AM Age: 79 years old Clinical indication: Patient HX: Shortness of breath. Intubated TECHNIQUE: Imaging protocol: XR of the chest Views: 1 view. COMPARISON: CR (CHEST, ) 04/05/2020 6:12 AM FINDINGS: Tubes, catheters and devices: The endotracheal tube is above the level of the franklyn. Nasogastric tube tip is below the diaphragm, directed toward, and is adjacent to the antrum. Lungs: Mild basilar airspace disease left greater than right. Small subpulmonic effusions right greater than left. Mild atelectasis left mid lung and mild thickening of the major fissure on the right. Pleural space: See Lungs finding. Heart/Mediastinum: Unremarkable. No cardiomegaly. Bones/joints: Unremarkable. XR/XR chest 1V portable [id number] IMPRESSION: Mild basilar airspace disease left greater than right. Small subpulmonic effusions right greater than left. Mild atelectasis left mid lung and mild thickening of the major fissure on the right. Findings improved.
[2020-04-06] MEDS: LORazepam 2 mg/mL INJ 1 mL IVP (06:07)
[2020-04-06] MEDS: dexmedetomidine 400 MCG in sodium chloride 0.9% (100 ml) 100 ML 242.9 MCG IV (06:07)
--- NOTE | 2020-04-06 06:08 | PC.NURSE ---
attempted to extubate patient with RT at bedside. Patient became tachypnic, elevated b/p spo2 dropped with attempt 2mg ativan given with precedex order however patient remained symptomatic. Nurse restarted propofol and ventilation settings returned. Dr Steinberg notified of patient condition and right lower lung findings on x ray
[2020-04-06 06:28] LABS: Chol HDL Ratio 2.38 mg/dL (0.0-4.40); Cholesterol 186 mg/dL (0-200); HDL Cholesterol 78 mg/dL (60-100); LDL Cholesterol Calculated 89 mg/dL (50-129); Triglycerides 93 mg/dL (0-150); VLDL Cholestrol Calculation 19 mg/dL (0-30)
[2020-04-06 07:49] LABS: Glucose Point of Care 229 mg/dL (70-110)
[2020-04-06] MEDS: aspirin 81 mg Chew Tablet OG-TUBE (08:00)
[2020-04-06] MEDS: ascorbic acid 500 mg Tablet OG-TUBE (08:00)
[2020-04-06] MEDS: azithromycin 500 MG in sodium chloride 0.9% 250 ML 250 MG IV (08:00)
[2020-04-06] MEDS: morphine 4 mg/mL SDV 1 mL 2 MG IVP (08:21)
[2020-04-06 08:38] LABS: ABG PH Result 7.43 (7.35-7.45); Alveolar-Arterial Oxygen Gradi 39.2 mmHg (5-10); Arterial Blood Gas Hematocrit 28.9 % (37-47); Base Excess ABG 0.9 mmol/L (-2.0-2.0); Blood Gas Allen Test Pos; Blood Gas Operator Identificat BD; Blood Gas Sample Site Radial, left; Blood Gas Sample Type Arterial; Carboxyhemoglobin 1.2 %THgb (0.4-20.1); HCO3 ABG 25.2 mmol/L (22-26); HGB O2 Sat 95.1 % (95-100); Ionized Calcium Level - ABG 1.2 mmol/L (1.1-1.4); Methemoglobin 0.4 % (0.4-1.5); Oxygen Device VENT; Oxygen Saturation ABG 96.7; PO2 ABG 82.3 mmHg (80.0-100.0); Potassium Level - ABG 3.1 mmol/L (3.5-5.0); Total Hemoglobin 9.4 g/dL (12-16)
[2020-04-06] MEDS: dexmedetomidine 400 MCG in sodium chloride 0.9% (100 ml) 100 ML 485.9 MCG IV (08:38)
[2020-04-06] MEDS: dexmedetomidine 400 MCG in sodium chloride 0.9% (100 ml) 100 ML 7.3 MCG IV ×2 (08:38→21:29)
[2020-04-06] MEDS: propofol 1,000 MG/100 ML INJ 28 MG IV (09:24)
[2020-04-06] MEDS: pantoprazole 40 mg SDV IVP ×2 (09:39→21:34)
[2020-04-06] MEDS: levothyroxine 100 mcg SDV 55 MCG IVP (09:40)
[2020-04-06 10:45] LABS: Coronavirus Lab Test PTC Negative
[2020-04-06 11:21] LABS: Glucose Point of Care 181 mg/dL (70-110)
[2020-04-06] MEDS: propofol 1,000 MG/100 ML INJ 22.4 MG IV (12:07)
--- NOTE | 2020-04-06 12:57 | P.CONIM_ITS ---
Providers/Reason For Consult Consulting Physican/Specialty*: Dr. Duggan, cardiothoracic surgery Reason for Consult*: Right pneumothorax Attending Physician: Jonathon Zavala MD Primary Care Provider: Jimmy Guzman DO History of Present Illness History of Present Illness Ophelia Wade is a 79 year old female whom I was consulted on from Dr. Blanco secondary to a small apical right pneumothorax noted on chest x-ray. Ms. Wade has been hospitalized since the after arriving by EMS following an apparent arrest requiring in the field CPR and intubation. EMS had been initially contacted due to increasing dyspnea which became much worsened during transport requiring subsequent resuscitation per ACLS protocol which did include chest compressions and subsequent intubation. Upon arrival she was found to be in third-degree heart block though this did resolve with initiation of dopamine. Her originally placed 6.5 endotracheal tube was replaced by Dr. Graham from ER With an 8.0 et tube. She is remained intubated since her arrival with substantial bilateral lung parenchymal opacifications and some groundglass opacities. This has markedly cleared with active diuresis and additional inotropic support though currently she still is on 60% FiO2 with a PEEP of 12. Yesterday and today a small apical pneumothorax was noted, though on today's x- ray it is a bit smaller. She also now has a new small right pleural effusion. I was consulted concerning management of this endotracheal tube. Given her fairly high airway pressures along with elevated PEEP and 60% FiO2, I have recommended an elective right thoracostomy tube placement. She has been on a heparin infusion as she was noted to have elevated troponins upon arrival which might be related to a non-STEMI versus acute arrest in the field. She is being followed carefully by Dr. Miranda from our cardiology service. I have recommended that heparin be held for 4 hours to allow for right thoracostomy tube placement at bedside. We are attempting to contact her son to obtain permission to allow for this procedure. Review of Systems General: Reports: ROS unobtainable due to medical condition (Currently intub ated on a propofol infusion. Apparently biggest complaint was progressive dyspnea for several hours prior to arrival of EMS.) Meds/Allergies Home Medications and Allergies Home Medications Medication Instructions Recorded Confirmed Last Taken Type alprazolam 0.25 mg PO BID 04/03/20 04/03/20 Unknown History atenolol 50 mg PO DAILY 04/03/20 04/03/20 Unknown History clotrimazole-betamethasone See Rx Instructions .ROUTE .COMPLEX 04/03/20 04/03/20 Unknown History desvenlafaxine succinate 50 mg PO DAILY 04/03/20 04/03/20 Unknown History gabapentin 300 mg PO TID 04/03/20 04/03/20 Unknown History levothyroxine 112 mcg PO DAILY 04/03/20 04/03/20 Unknown History lisinopril 40 mg PO DAILY 04/03/20 04/03/20 Unknown History metformin 1,000 mg PO BID 04/03/20 04/03/20 Unknown History oxycodone 15 mg PO Q4H 04/03/20 04/03/20 Unknown History pantoprazole 20 mg PO DAILY 04/03/20 04/03/20 Unknown History prednisone 10 mg PO DAILY 04/03/20 04/03/20 Unknown History sulfamethoxazole-trimethoprim 1 tab PO BID 04/03/20 04/03/20 Unknown History Allergies Allergy/AdvReac Type Severity Reaction Status Date / Time Penicillins Allergy ALGY-Hives Verified 04/03/20 11:44 Current Medications Current Medications Generic Name Dose Route Start Last Admin Trade Name Freq PRN Reason Stop Dose Admin Albuterol/Ipratropium 3 ml 04/03/20 18:22 04/06/20 08:19 Duoneb INHALATION 3 ml Q6H PRN Administration SHORTNESS OF BREATH Ascorbic Acid 500 mg 04/04/20 09:00 04/06/20 08:00 Vitamin C OG-TUBE 500 mg DAILY STEPHANIE Administration Aspirin 81 mg 04/05/20 09:00 04/06/20 08:00 Aspirin Chewable OG-TUBE 81 mg DAILY STEPHANIE Administration Furosemide 100 mg 04/04/20 16:00 04/06/20 04:17 Lasix IVP 100 mg Q12H STEPHANIE Administration Hydralazine HCl 10 mg 04/06/20 04:42 04/06/20 05:02 Apresoline IVP 10 mg Q4H PRN Administration htn >180/110 Azithromycin 500 mg/ Sodium 250 mls @ 250 mls/hr 04/04/20 09:00 04/06/20 08:21 Chloride IV 0 mls/hr DAILY STEPHANIE Infusion Protocol Imipenem/Cilastatin Sodium 250 100 mls @ 200 mls/hr 04/03/20 19:00 04/06/20 12:01 mg/ Sodium Chloride IV 200 mls/hr Q6H STEPHANIE Administration Protocol Fentanyl 1,000 mcg/ Sodium 100 mls @ 0 mls/hr 04/03/20 20:15 04/06/20 08:04 Chloride IV 100 mcg/hr .Q0M STEPHANIE 10 mls/hr Titration Protocol Per Protocol Norepinephrine Bitartrate 4 mg 254 mls @ 0 mls/hr 04/03/20 21:00 04/05/20 08:52 / Dextrose IV 0 mcg/min .Q0M STEPHANIE 0 mls/hr Titration Protocol Per Protocol Midazolam HCl 100 mg/ Sodium 100 mls @ 0 mls/hr 04/04/20 07:30 04/05/20 16:15 Chloride IV 0 mg/hr .Q0M STEPHANIE 0 mls/hr Titration Protocol Per Protocol Heparin Sodium/Sodium Chloride 25,000 unit in 500 mls @ 0 mls/hr 04/04/20 17:15 04/06/20 10:23 Heparin Drip IV 0 unit/kg/hr .Q0M STEPHANIE 0 mls/hr Titration Protocol Per Protocol Propofol 1,000 mg in 100 mls @ 0 mls/hr 04/05/20 16:15 04/06/20 12:07 Diprivan IV 40 mcg/kg/min .Q0M STEPHANIE 22.4 mls/hr Administration Protocol Per Protocol Dexmedetomidine HCl 400 mcg/ 104 mls @ 0 mls/hr 04/06/20 05:00 04/06/20 11:15 Sodium Chloride IV 0.1 mcg/kg/hr .Q0M STEPHANIE 2.4 mls/hr Titration Protocol Per Protocol Insulin Aspart 0 unit 04/04/20 08:00 04/06/20 12:00 Novolog SUBCUT 6 unit WM&BEDTIME STEPHANIE Administration Protocol Levothyroxine Sodium 55 mcg 04/04/20 09:00 04/06/20 09:40 Synthroid IVP 55 mcg DAILY STEPHANIE Administration Methylprednisolone Sodium Succinate 60 mg 04/03/20 16:22 04/06/20 09:39 Solu-Medrol IVP 60 mg Q6H STEPHANIE Administration Morphine Sulfate 2 mg 04/06/20 08:16 04/06/20 08:21 Morphine IVP 2 mg Q2H PRN Administration [employer] H[employer]GER Pantoprazole Sodium 40 mg 04/05/20 10:00 04/06/20 09:39 Protonix IVP 40 mg Q12H STEPHANIE Administration Fluticasone/Salmeterol 1 puff 04/03/20 20:00 04/05/20 09:22 Advair Diskus 250-50 INHALATION Not Given BID.RESPIRATORY STEPHANIE Thiamine HCl 100 mg 04/04/20 09:00 04/06/20 08:00 Vitamin B-1 IV 100 mg DAILY STEPHANIE Administration Tiotropium [place] 18 mcg 04/04/20 08:00 04/05/20 09:22 Spiriva INHALATION Not Given DAILY.RESPIRATORY STEPHANIE PFSH Acute PFSH: Medical History Anxiety Depression DM type 2 (diabetes mellitus, type 2) Fibromyalgia Hyperlipidemia Hypertension Hypothyroidism Osteoarthritis Osteoporosis Polymyalgia rheumatica Family History Other CAD (coronary artery disease) Diabetes Stroke Social History Smoking and tobacco status: former smoker Alcohol intake: never Household members: spouse Housing: House Vitals/I&O/Wt Last Vital Signs Temp 98.1 F 04/06/20 08:00 Pulse 60 04/06/20 12:00 Resp 14 04/06/20 12:00 BP 123/46 04/06/20 12:00 Pulse Ox 99 04/06/20 12:00 04/05/20 04/06/20 04/06/20 22:59 06:59 14:59 Intake Total 205.834 / 659.859 420.462 / 1080.321 584.651 / 584.651 Output Total 2900 / 2900 700 / 3600 Balance -2694.166 / -2240.141 -279.538 / -2519.679 584.651 / 584.651 Weight last 48 hrs Weight 199 lb Weight 206 lb Weight 206 lb Weight 190 lb Physical Exam Narrative: EXAM NARRATIVE: Ms. Wade is currently intubated orally and sedated. She appears comfortable. Chest: COMMONS NORMALS: negative for normal palpation of entire chest wall (There is a small amount of subtends emphysema on the right side consistent with the radiographic findings.) Resp: COMMON NORMALS: negative for clear to auscultation bilaterally EFFORT & INSPECTION: Yes symmetric chest movement and No tracheal deviation AUSCULTATION: not clear to auscultation bilaterally and bronchial breath sounds Cardio: COMMON NORMALS: regular rhythm, S1 normal heart sound present and S2 normal heart sound present; negative for regular rate RATE: abnormal rate and tachycardic RHYTHM: regular rhythm HEART SOUNDS: S1 normal heart sound present and S2 normal heart sound present Extremity: OTHER: Lower extremity and dependent edema is noted Neuro: OTHER: Unable to assess due to currently medically sedation Urinary Catheter Management^: Doherty: Cath Placed During This Visit: yes Reason for Continuing Indwelling Catheter: Accurate Measurement of Urinary Output in Critically Ill Patients Urinary Catheter Date of Insertion: 04/03/20 Urinary Catheter Time of Insertion: 11:55 Data Micro: Micro: Microbiology 04/04/20 11:05 Blood Culture - Pr eliminary Blood NEGATIVE TO NATANAEL E 04/04/20 10:51 Blood Culture - Pr eliminary Blood NEGATIVE TO NATANAEL E 04/03/20 12:21 Gram Stain - Final Sputum - Endotrac heal Tube Aspirate Sputum Culture - F inal A&P Assessment and plan (1) Pneumothorax on right: Right apical pneumothorax with some subcutaneous emphysema, currently intubated and sedated respiratory failure. Recommendation: I recommend a right thoracostomy tube placement due to the small apical pneumothorax as well as a now new small right pleural effusion. We will seek approval from her son who is providing permission for services. If this is obtained, we will proceed with right chest tube placement. Heparin has been on hold for the past 4-hours to allow for this procedure. Status: Acute Consult Attestations Medical Necessity Statement: Right pneumothorax in the setting of respiratory failure requiring mechanical ventilation Time Spent in Patient Care: Greater than 35 minutes Coding Level of Care Code Acute Plasma Table Operator for Fifi Parrish Diagnoses Pneumothorax on right J93.9
--- NOTE | 2020-04-06 14:36 | XRR_ITS ---
PROCEDURE INFORMATION: Exam: XR Chest, 1 View Exam date and time: 04/06/2020 2:50 PM Age: 79 years old Clinical indication: Device placement; Chest tube; Additional info: Chest tube placement TECHNIQUE: Imaging protocol: XR of the chest Views: 1 view. COMPARISON: CR XR chest 1V portable [id number] 04/06/2020 4:51 AM FINDINGS: Tubes, catheters and devices: Interval placement of large bore right-sided chest tube. Tip at level of right 7th rib. NG tube tip in region of distal esophagus. Lungs: Reduced lung volumes with bibasilar consolidation/atelectasis. Pleural space: Persistent small right apical pneumothorax. Heart/Mediastinum: Unremarkable. No cardiomegaly. Soft tissues: Small amount of right lateral chest wall subcutaneous emphysema. XR/XR chest 1V portable [id number] IMPRESSION: 1.) Interval placement of right-sided chest tube. Persistent small right apical pneumothorax.
[2020-04-06] MEDS: lidocaine 1% INJ 20 mL SUBCUT (14:39)
--- NOTE | 2020-04-06 14:44 | P.PN_ITS ---
Subjective Subjective: Interval history: In the last 24-hour she continues to be on vent support. X-ray chest in the morning showed cutaneous emphysema well as PTX. Patient patient was tachypneic and tachycardic. CT surgery was consulted as he is on positive pressure ventilation and has new onset subcutaneous emphysema as well as worsening pleural effusion. She is status post right thoracostomy tube placement. Vitals and labs have been reviewed. We will continue to monitor with serial x-ray. Vitals/I&O/Wt Last Vital Signs Temp 98.1 F 04/06/20 08:00 Pulse 60 04/06/20 12:00 Resp 14 04/06/20 12:59 BP 123/46 04/06/20 12:00 Pulse Ox 99 04/06/20 12:00 04/05/20 04/06/20 04/06/20 22:59 06:59 14:59 Intake Total 205.834 / 659.859 420.462 / 1080.321 584.651 / 584.651 Output Total 2900 / 2900 700 / 3600 Balance -2694.166 / -2240.141 -279.538 / -2519.679 584.651 / 584.651 Weight last 48 hrs Weight 90.265 kg Weight 93.44 kg Weight 93.44 kg Weight 86.183 kg Physical Exam Narrative: EXAM NARRATIVE: EXAM NARRATIVE: Ms. Wade is currently intubated orally and sedated. She appears comfortable. Chest COMMONS NORMALS: negative for normal palpation of entire chest wall (There is a small amount of subtends emphysema on the right side consistent with the radiographic findings.) Resp COMMON NORMALS: negative for clear to auscultation bilaterally EFFORT & INSPECTION: Yes symmetric chest movement and No tracheal deviation AUSCULTATION: not clear to auscultation bilaterally and bronchial breath sounds Cardio COMMON NORMALS: regular rhythm, S1 normal heart sound present and S2 normal heart sound present; negative for regular rate RATE: abnormal rate and tachycardic RHYTHM: regular rhythm HEART SOUNDS: S1 normal heart sound present and S2 normal heart sound present Extremity OTHER: Lower extremity and dependent edema is noted Neuro OTHER: Unable to assess due to currently medically sedation Urinary Catheter Management^: Doherty: Cath Placed During This Visit: yes Reason for Continuing Indwelling Catheter: Accurate Measurement of Urinary Output in Critically Ill Patients Urinary Catheter Date of Insertion: 04/03/20 Urinary Catheter Time of Insertion: 11:55 Data : 04/06/20 04:20 04/05/20 02:30 Micro: Microbiology 04/04/20 11:05 Blood Culture - Preliminary Blood NEGATIVE TO DATE 04/04/20 10:51 Blood Culture - Preliminary Blood NEGATIVE TO DATE 04/03/20 12:21 Gram Stain - Final Sputum - Endotracheal Tube Aspirate Sputum Culture - Final A&P Assessment and plan (1) Septic shock: Status: Acute (2) Cardiac arrest: Status: Acute (3) Acute respiratory failure: Status: Acute Qualifiers: Respiratory failure complication: hypoxia and hypercapnia Qualified Code(s): J96.01 - Acute respiratory failure with hypoxia; J96.02 - Acute respiratory failure with hypercapnia (4) Acute renal failure: Status: Acute Qualifiers: Acute renal failure type: unspecified Qualified Code(s): N17.9 - Acute kidney failure, unspecified (5) ARDS (adult respiratory distress syndrome): Status: Acute (6) Acidosis, metabolic, with respiratory acidosis: Status: Acute (7) Polymyalgia rheumatica: Status: Acute (8) Hypertension: Status: Acute (9) DM type 2 (diabetes mellitus, type 2): Status: Acute (10) Hypothyroidism: Status: Acute (11) LBBB (left bundle branch block): Status: Acute (12) Third degree AV block: Status: Acute (13) Hyperkalemia: Status: Acute (14) DKA (diabetic ketoacidoses): Status: Acute Additional A&P Information 70-year-old female with past medical history of hypertension, polymyalgia rheumatica on chronic steroids who was recently started on Bactrim for last 10 days because of cellulitis of her lower limbs came to the ER after being intubated in the field after which she developed cardiac arrest for which she had ACLS protocol for 10 minutes. Post [place] patient was in third-degree heart block which relieved after dopamine. Neurology: Awake and arousable on vent. Continue fentanyl and Versed. CT head done on admission negative for any acute bleed. Sedation vacation. Seizure precautions. Cardiology: Patient has history of hypertension for which she takes atenolol and lisinopril at home. Keep mean arterial pressures over 65 mmHg. Titrate Levophed accordingly. Patient on arrival was in third-degree heart block. Right now patient is having sinus tachycardia with left bundle branch block and a possible fourth degree heart block. Given the presentation to the hospital cannot rule out acute coronary syndrome with the patient. No old EKG in the system to compare. No more heart block anymore at present. NSTEMI: Troponins trending up. Could be secondary to cardiac arrest and CPR. Cannot rule out ACS. Cardiology consulted. Because troponin yesterday went up to 2400 chances of NSTEMI are high so she was started on heparin drip. Plan to continue heparin drip for now. If patient improves and depending on the clinical picture. Patient might go for left heart cath during this hospitalization. Echocardiogram results appreciated. Continue with aspirin through the OG tube. We will hold off on statins for now because of liver dysfunction most likely because of shock liver. Will add troponin to morning labs. HbA1c 6.9. Congestive heart failure: Patient still looking fluid overloaded on chest x-ray on clinically. Good urine response yesterday. Overall patient put out 4.8 L yesterday. Continue Lasix 100 mg twice daily. We will monitor input and output strictly. Daily weights. Echocardiogram shows an EF of 40% with questionable regional wall motion abnormality because of technical difficulty. Pulmonology: ET tube changed to bigger size yesterday. ARDS: Most likely because of pneumonia versus congestive heart failure. Continue with imipenem and azithromycin both renally dosed. Diuresis as above. Titrate ventilator settings keeping saturation over 90% with PCO2 over 45. No plan for extubation today. Continue with diuresis. For now we will try to put patient on pressure support for 4 to 5 hours so she can work breathing on her own. COVID-19 results awaited. Continue with isolation precautions. Advair, Spiriva. Chest vest. GI: N.p.o. for now. Protonix twice daily. Continue with NG tube. Renal: Acute renal failure. Creatinine mildly improving today. Most likely because of combination of dehydration, Bactrim, lisinopril. Medication reconciliation done for nephrotoxic drugs. Will dose antibiotics renally. Hyperkalemia: Resolved. Continue to monitor BMP daily for now. Acidosis: Resolved. Mixed respiratory and metabolic. We will treat as above and continue to follow. Infectious: As patient has remained hemodynamically stable and afebrile with MRSA negative we will stop vancomycin and monitor today. Continue with imipenem for possible aspiration along with azithromycin. Patient would most likely require azithromycin for 5-day course. Day 3 today. Patient has left knee swelling along with possible effusion and ecchymosis. Will get knee x-ray. If patient blood cultures come back positive most likely will have to have arthrocentesis to rule out septic joint. For now patient has other sources of infection which are more possible. COVID-19 results elevated. Endocrine: DKA resolved. Continue with insulin sliding scale at moderate dose with every 6 checks. Needed 12 units insulin in last 24 hours. Patient takes prednisone 10 mg at home daily for polymyalgia rheumatica. Continue with methylprednisolone at 60 mg IV every 6 hours. Goals of care: Discussed in detail with patient's son at bedside. Discussed that patient has a very very poor guarded prognosis because of cardiac arrest and respiratory arrest. Also discussed that it is quite possible that patient has brain injury or even possible has no brain functions. Discussed that we will continue to monitor for now. For now patient is full code. Family is also okay with dialysis if required. Heparin 5000 every 12 for DVT prophylaxis. Famotidine for PUD prophylaxis. Full code. Severely guarded prognosis Attestations Medical Necessity Statement*: Patient needs to be in hospital for the management of pneumonia and sepsis. Coding Level of Care Code Acute Mechanotherapist for [facility] Diagnoses Septic shock A41.9; R65.21 Cardiac arrest I46.9 Acute respiratory failure J96.01; J96.02 Respiratory failure complication: hypoxia and hypercapnia Acute renal failure N17.9 Acute renal failure type: unspecified ARDS (adult respiratory distress syndrome) J80 Acidosis, metabolic, with respiratory acidosis E87.4 Polymyalgia rheumatica M35.3 Hypertension I10 DM type 2 (diabetes mellitus, type 2) E11.9 Hypothyroidism E03.9 LBBB (left bundle branch block) I44.7 Third degree AV block I44.2 Hyperkalemia E87.5 DKA (diabetic ketoacidoses) E11.10
--- NOTE | 2020-04-06 14:46 | PM.OP ---
Operative Report Date of procedure: April 06, 2020 Pre-op Diagnosis: Right pneumothorax with effusion Post-op diagnosis: same Procedure Done: Right 28 [place]ian thoracostomy tube placement Specimens removed/disposition: 300 cc of serosanguineous fluid recovered Pathology: none sent Surgeon: Ricardo Duggan Anesthesia: Local Complications: None Findings: 300 cc serosanguineous fluid recovered Condition: stable Disposition: ICU Brief History: Ms. Wade is a 79-year-old female who is been admitted since April 03 after presenting following full arrest during transport from her home by EMS for respiratory failure. She required CPR and ACLS protocol. She is remained intubated since her arrival and required full ventilatory support. There was one period of self extubation which resulted in rapid respiratory failure. Her radiographic status has markedly improved since admission though she is now developed what appears to be a small apical right pneumothorax noted on yesterday and today's chest x-ray. As well, there is now a small right pleural effusion noted on the x-ray from today. As it appears she will require further mechanical ventilation, I recommended chest tube placement as prophylaxis from this right pneumothorax as well as now developing right pleural effusion. Details and consent were discussed with her son by phone who is provided verbal, witnessed consent for this procedure. Ms. Wade remains sedated and intubated. Procedure: Procedure: Ms. Wade remains in the supine position with her upper body slightly elevated as well as with the right chest slightly elevated. IV conscious sedation using propofol infusion continues with continous monitoring of heart rate, rhythm, ekg, and O2 saturation. The entire right anterior and lateral chest was thoroughly prepped and draped. 1% lidocaine was infiltrated in the anterior/midaxillary line over the seventh rib. A #15 scalpel blade was used to incise the skin, silk stay suture was placed, followed by utilizing a small hemostat to enter the pleural space with return of serosanguineous fluid. A 28 [place]ian thoracostomy drain was placed. A total of 300 mL of serosanguineous fluid was collected. Chest tube was secured to the skin followed by placement of sterile dressings. Chest tube is placed to Pleur-evac suction. She tolerated the procedure well, appearing to remain comfortable throughout the procedure. Chest x-ray reveals the tip the chest tube to be in the mid right thoracic region. There is clearing of much of the right pleural effusion. While the tube does not reach to the apex, the small apical pneumothorax remains, though clearly she is not protected from any substantial increase or potential tension pneumothorax with the chest tube currently in position. We will leave chest tube to suction with planned serial chest x-rays. Son was notified by phone by our nursing's staff at completion of the procedure.
[2020-04-06 18:05] LABS: Glucose Point of Care 201 mg/dL (70-110)
[2020-04-06 20:35] LABS: Glucose Point of Care 236 mg/dL (70-110)
[2020-04-06 21:44] LABS: Partial Thromboplastin Time 37.8 SECONDS (23.9-36.7)
[2020-04-06] MEDS: heparin 5,000 unit/mL INJ 1 mL IV (22:44)
--- NOTE | 2020-04-06 22:54 | PC.NURSE ---
Right AC IV line found laying beside patient on bed during 1899 nursing shift assessment. IV catheter intact, and Heparin drip attached to femoral line tubing.
[2020-04-07] VITALS (38 sets, daily range): BP systolic 95–193; BP diastolic 36–66; PULSE 58–92; RESP 14–23; TEMP 36.4–36.8; O2SAT 95–99
[2020-04-07 03:39] LABS: Basophils % 0.1 %; Hematocrit 25.9 % (37.0-47.0); Hemoglobin 8.2 g/dL (11.5-15.3); Lymphocytes # 0.7 10^3/uL (0.8-4.8); Lymphocytes % 3.3 %; Mean Corpuscular HGB Conc 31.7 g/dL (30.0-36.0); Mean Corpuscular Hemoglobin 31.8 pg (28.0-34.0); Mean Corpuscular Volume 100.4 fL (81-99); Mean Platelet Volume 11.7 fL (7.4-10.4); Monocytes # 1.1 10^3/uL (0.2-0.9); Monocytes % 5.2 %; Neutrophils # 18.44 10^3/uL (1.8-7.7); Neutrophils % 87.8 %; Nucleated Red Blood Cells % 0 %; Platelet Count 268 10^3/cmm (130-400); Red Blood Count 2.58 10^6/uL (4.1-5.3); Red Cell Distribution Width 14.6 % (12.1-15.1)
[2020-04-07] MEDS: ipratropium-albuterol 3 mL Neb INHALATION ×4 (03:49→19:16)
[2020-04-07] MEDS: hyDRALAzine 20 mg/mL INJ 1 mL 10 MG IVP (04:01)
[2020-04-07] MEDS: FUROsemide 10 mg/mL SDV 10mL 100 MG IVP ×2 (04:02→16:01)
[2020-04-07 04:03] LABS: Alanine Aminotransferase 83 U/L (0-33); Alkaline Phosphatase 79 IU/L (35-105); Anion Gap 19.1 (5-19); Aspartate Amino Transferase 38 U/L (0-32); Blood Urea Nitrogen 42 mg/dL (8-23); Calcium 8.5 mg/dL (8.5-10.5); Carbon Dioxide 25 mmol/L (22-29); Chloride 100 mmol/L (98-107); Globulin 2.7 g/dL (1.3-4.6); Glucose 166 mg/dL (65-115); Osmolality Calculated 306 mOsm/kg (285-295); Potassium 3.1 mmol/L (3.5-5.1); Sodium 141 mmol/L (136-145); Total Bilirubin 0.4 mg/dL (0.15-1.2); Total Protein 5.7 g/dL (6.6-8.7)
[2020-04-07 04:50] LABS: Partial Thromboplastin Time 113.9 SECONDS (23.9-36.7)
--- NOTE | 2020-04-07 04:58 | PC.NURSE ---
Patient began to have increased anxiety and agitation. Nonpharmacological measures attempted to try and calm patient down. Unable to decrease anxiety and increased pain levels with diversion techniques. Monitor ranged from 180-200 SBP, with 50-40 DBP. Manual BP's taken to ensure accuracy. Hydralazine IVP given in attempts to decrease BP. Fentanyl drip titrated back to 100mcg/min. Precedex drip increased to 0.4mcg/min After 1.5 hours of attempts to decrease pain and restlessness/agitation, Propofol restarted (See Mar flowsheet). During restlessness and agitation spell, patient chest tube dressing was noticeably saturated. Site cleansed/and redressed with drain sponges (2), [place] dressing, and bio occlusive. No crepitus or other evidence of misplaced chest tube drain.
[2020-04-07 05:17] LABS: ABG PCO2 29.4 mmHg (35-45); ABG PH Result 7.55 (7.35-7.45); Arterial Blood Gas Hematocrit 25.3 % (37-47); Base Excess ABG 3.4 mmol/L (-2.0-2.0); Blood Gas Allen Test Pos; Blood Gas Operator Identificat JB; Blood Gas Sample Site Radial, right; Blood Gas Sample Type Arterial; Blood Gas Tidal Volume 0.45; HCO3 ABG 25.7 mmol/L (22-26); Oxygen Device VENT; PO2 ABG 63.7 mmHg (80.0-100.0)
[2020-04-07] MEDS: propofol 1,000 MG/100 ML INJ 14 MG IV (05:35)
[2020-04-07] MEDS: propofol 1,000 MG/100 ML INJ 19.6 MG IV ×3 (06:17→23:24)
--- NOTE | 2020-04-07 06:39 | PC.NURSE ---
Shift Summary: Pt remains restless. At times she fights against her restraints in attempts to try and self-extubate. Overall a total of about 3 hours slept. Propofol @ 35mcg/min Fentanyl @ 100mcg/min Precedex @ 0.4mcg/min Heparin 12mL/hr. U/O 1525mL & Chest tube 40mL Report given to oncoming RN
--- NOTE | 2020-04-07 07:49 | DCPLANNER ---
Pt is still on a vent, her spouse was to be in for visiting hours yesterday evening, keno writer was going to present him with the Pg 2 and explain it however he either came much later or not at all. Will phone him today.
[2020-04-07] MEDS: aspirin 81 mg Chew Tablet OG-TUBE (08:19)
[2020-04-07] MEDS: ascorbic acid 500 mg Tablet OG-TUBE (08:19)
[2020-04-07] MEDS: azithromycin 500 MG in sodium chloride 0.9% 250 ML 250 MG IV (08:20)
[2020-04-07] MEDS: levothyroxine 100 mcg SDV 55 MCG IVP (09:38)
[2020-04-07] MEDS: pantoprazole 40 mg SDV IVP ×2 (09:39→21:22)
[2020-04-07] MEDS: potassium chloride premix 40 MEQ/100 ML PREMIX 25 MEQ IV (09:40)
[2020-04-07] MEDS: dexmedetomidine 400 MCG in sodium chloride 0.9% (100 ml) 100 ML 9.7 MCG IV (09:46)
[2020-04-07 10:05] LABS: Partial Thromboplastin Time 66.9 SECONDS (23.9-36.7)
--- NOTE | 2020-04-07 10:19 | PM.PN ---
Subjective Subjective: Interval history: Patient continues to require ventilatory support. Weaning trials have been unsuccessful, she becomes extremely tachypnic. Heparin was also discontinued today as she was having bleeding through the ET tube. Fluid overload has improved with diuresis. Pneumonia is improving. Her current GCS of sedation: Is 10 T Vitals and labs have been reviewed. Vitals/I&O/Wt Last Vital Signs Temp 98.1 F 04/07/20 08:00 Pulse 78 04/07/20 08:00 Resp 17 04/07/20 08:00 BP 151/44 04/07/20 08:00 Pulse Ox 97 04/07/20 08:00 04/06/20 04/07/20 04/07/20 22:59 06:59 14:59 Intake Total 552.939 / 1118.488 312.182 / 1430.670 60.443 / 60.443 Output Total 1500 / 1500 1115 / 2615 500 / 500 Balance -947.061 / -381.512 -802.818 / -1184.330 -439.557 / -439.557 Weight last 48 hrs Weight 84.935 kg Weight 90.265 kg Weight 93.44 kg Physical Exam Narrative: EXAM NARRATIVE: Narrative EXAM NARRATIVE: EXAM NARRATIVE: Ms. Wade is currently intubated orally and sedated. She appears comfortable. Chest COMMONS NORMALS: negative for normal palpation of entire chest wall (There is a small amount of subtends emphysema on the right side consistent with the radiographic findings.) Resp COMMON NORMALS: negative for clear to auscultation bilaterally EFFORT & INSPECTION: Yes symmetric chest movement and No tracheal deviation AUSCULTATION: not clear to auscultation bilaterally and bronchial breath sounds Cardio COMMON NORMALS: regular rhythm, S1 normal heart sound present and S2 normal heart sound present; negative for regular rate RATE: abnormal rate and tachycardic RHYTHM: regular rhythm HEART SOUNDS: S1 normal heart sound present and S2 normal heart sound present Extremity OTHER: Lower extremity and dependent edema is noted Neuro OTHER: Unable to assess due to currently medically sedation Urinary Catheter Management^: Doherty: Cath Placed During This Visit: yes Reason for Continuing Indwelling Catheter: Accurate Measurement of Urinary Output in Critically Ill Patients Urinary Catheter Date of Insertion: 04/03/20 Urinary Catheter Time of Insertion: 11:55 Data : 04/07/20 03:00 04/07/20 03:00 A&P Assessment and plan (1) Septic shock: Status: Acute (2) Cardiac arrest: Status: Acute (3) Acute respiratory failure: Status: Acute Qualifiers: Respiratory failure complication: hypoxia and hypercapnia Qualified Code(s): J96.01 - Acute respiratory failure with hypoxia; J96.02 - Acute respiratory failure with hypercapnia (4) Acute renal failure: Status: Acute Qualifiers: Acute renal failure type: unspecified Qualified Code(s): N17.9 - Acute kidney failure, unspecified (5) ARDS (adult respiratory distress syndrome): Status: Acute (6) Acidosis, metabolic, with respiratory acidosis: Status: Acute (7) Polymyalgia rheumatica: Status: Acute (8) Hypertension: Status: Acute (9) DM type 2 (diabetes mellitus, type 2): Status: Acute (10) Hypothyroidism: Status: Acute (11) LBBB (left bundle branch block): Status: Acute (12) Third degree AV block: Status: Acute (13) Hyperkalemia: Status: Acute (14) DKA (diabetic ketoacidoses): Status: Acute Additional A&P Information 70-year-old female with past medical history of hypertension, polymyalgia rheumatica on chronic steroids who was recently started on Bactrim for last 10 days because of cellulitis of her lower limbs came to the ER after being intubated in the field after which she developed cardiac arrest for which she had ACLS protocol for 10 minutes. Post [place] patient was in third-degree heart block which relieved after dopamine. Neurology: Awake and arousable on vent. Currently GCS is [address] head done on admission negative for any acute bleed. Sedation vacation. Seizure precautions. Cardiology: Patient has history of hypertension for which she takes atenolol and lisinopril at home. Keep mean arterial pressures over 65 mmHg. . Patient on arrival was in third-degree heart block. Right now patient is having sinus tachycardia with left bundle branch block and a possible fourth degree heart block. Given the presentation to the hospital cannot rule out acute coronary syndrome with the patient. No old EKG in the system to compare. No more heart block anymore at present. Likely NSTEMI versus demand ischemia. Could be secondary to cardiac arrest and CPR. Cannot rule out ACS. Cardiology was consulted. Because troponin went up to 2400 chances of NSTEMI are high so she was started on heparin drip. Heparin drip has been stopped as she was having bleeding from the E.T tube. If patient improves and depending on the clinical picture. Patient might go for left heart cath during this hospitalization. Echocardiogram results appreciated. Continue with aspirin through the OG tube. statins has been started as the liver function is normal. HbA1c 6.9. Congestive heart failure: Patient still looking fluid overloaded on chest x-ray on clinically. Good urine response yesterday. Continue Lasix 100 mg twice daily. We will monitor input and output strictly. Daily weights. Echocardiogram shows an EF of 40% with questionable regional wall motion abnormality because of technical difficulty. Pulmonology: ARDS: Most likely because of pneumonia versus congestive heart failure. Continue with imipenem and azithromycin both renally dosed. Diuresis as above. Titrate ventilator settings keeping saturation over 90% with PCO2 over 45. No plan for extubation today. Continue with diuresis. For now we will try to put patient on pressure support for 4 to 5 hours so she can work breathing on her own. COVID-19 : Negative Advair, Spiriva. Chest vest. GI: We have started n.g tube feeding Protonix twice daily. Renal: Acute renal failure. Creatinine mildly improving today. Most likely because of combination of dehydration, Bactrim, lisinopril. Medication reconciliation done for nephrotoxic drugs. Will dose antibiotics renally. Hyperkalemia: Resolved. Continue to monitor BMP daily for now. Acidosis: Resolved. Mixed respiratory and metabolic. We will treat as above and continue to follow. Infectious: As patient has remained hemodynamically stable and afebrile with MRSA negative we will stop vancomycin and monitor today. Continue with imipenem for possible aspiration along with azithromycin. Patient would most likely require azithromycin for 5-day course. Day 3 today. Patient has left knee swelling along with possible effusion and ecchymosis. Will get knee x-ray. If patient blood cultures come back positive most likely will have to have arthrocentesis to rule out septic joint. For now patient has other sources of infection which are more possible. COVID-19 results elevated. Endocrine: DKA resolved. Continue with insulin sliding scale at moderate dose with every 6 checks. Needed 12 units insulin in last 24 hours. Patient takes prednisone 10 mg at home daily for polymyalgia rheumatica. Continue with methylprednisolone at 60 mg IV every 6 hours. Goals of care: Discussed in detail with patient's son at bedside. Discussed that patient has a very very poor guarded prognosis because of cardiac arrest and respiratory arrest. Also discussed that it is quite possible that patient has brain injury or even possible has no brain functions. Discussed that we will continue to monitor for now. For now patient is full code. Family is also okay with dialysis if required. SCD FOR DVT prophylaxis. Protonix for PUD prophylaxis. Full code. Severely guarded prognosis Attestations Medical Necessity Statement*: Patient needs to be in hospital for management of sepsis. 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
--- NOTE | 2020-04-07 10:54 | XRR_ITS ---
PROCEDURE INFORMATION: Exam: XR Chest, 1 View Exam date and time: 04/07/2020 11:10 AM Age: 79 years old Clinical indication: Device placement; Ett placement (vent status); Patient HX: Intubated, follow up; Additional info: Ptx TECHNIQUE: Imaging protocol: XR of the chest Views: 1 view. COMPARISON: CR XR chest 1V portable [id number] 04/06/2020 2:58 PM FINDINGS: Tubes, catheters and devices: The endotracheal tube is above the level of the [place]. Nasogastric tube in the region of the antrum and or duodenum Thoracotomy tube right hemithorax. No visualized pneumothorax. Opacity adjacent to the thoracotomy tube. Mild atelectasis right lung base. Lungs: Mild airspace disease within the left lung base. Pleural space: See Tubes, catheters and devices finding. Heart/Mediastinum: Unremarkable. No cardiomegaly. Bones/joints: Unremarkable. XR/XR chest 1V portable [id number] IMPRESSION: 1. Mild airspace disease within the left lung base. 2. Thoracotomy tube right hemithorax. No visualized pneumothorax. Opacity adjacent to the thoracotomy tube. Mild atelectasis right lung base.
--- NOTE | 2020-04-07 12:42 | PC.NURSE ---
Heparin drip stopped Nurse suctioned ett and noticed a blood ting for secretion. central line dressing had blood under the dressing and a small amount leaking from the dressing. Chest tube dressing was saturated with blood. Heparin drip turned off by nurse. Call to to notify of finding. Verbal order to DC heparin drip. Nurse reapplied central line dressing, and reenforced chest tube dressing.
[2020-04-07] MEDS: dexmedetomidine 400 MCG in sodium chloride 0.9% (100 ml) 100 ML 12.1 MCG IV (18:19)
[2020-04-07 18:48] LABS: Glucose Point of Care 225 mg/dL (70-110)
[2020-04-07 19:01] LABS: Glucose Point of Care 234 mg/dL (70-110)
[2020-04-07 19:01] LABS: Glucose Point of Care 200 mg/dL (70-110)
[2020-04-07 19:54] LABS: Anion Gap 17.2 (5-19); Blood Urea Nitrogen 52 mg/dL (8-23); Calcium 7.8 mg/dL (8.5-10.5); Carbon Dioxide 28 mmol/L (22-29); Chloride 100 mmol/L (98-107); Glucose 206 mg/dL (65-115); Osmolality Calculated 314 mOsm/kg (285-295); Potassium 3.2 mmol/L (3.5-5.1); Sodium 142 mmol/L (136-145)
--- NOTE | 2020-04-07 20:20 | P.PN_ITS ---
Subjective Subjective: Interval history: Patient still intubated. Was having bleeding throught the ET tube and heparin has been stopped. Vitals/I&O/Wt Last Vital Signs Temp 97.6 F 04/07/20 19:00 Pulse 61 04/07/20 19:17 Resp 14 04/07/20 19:18 BP 136/46 04/07/20 19:00 Pulse Ox 96 04/07/20 19:17 04/07/20 04/07/20 04/07/20 06:59 14:59 22:59 Intake Total 412.182 / 1530.670 215.818 / 215.818 483.455 / 699.273 Output Total 1115 / 2615 500 / 500 1040 / 1540 Balance -702.818 / -1084.330 -284.182 / -284.182 -556.545 / -840.727 Weight last 48 hrs Weight 187 lb 4 oz Weight 199 lb Physical Exam Narrative: EXAM NARRATIVE: EXAM NARRATIVE: General: Sedated, arousable. On arousal following commands HEENT: PERRLA, pupils bilaterally equal and reactive Chest: Bilateral coarse crackles CVS: S1-S2 regular, tachycardia, S3 gallop Abdomen: Soft, nontender, no organomegaly, bowel sounds present Extremities: Edema 2 plus Urinary Catheter Management^: Doherty: Cath Placed During This Visit: yes Reason for Continuing Indwelling Catheter: Accurate Measurement of Urinary Output in Critically Ill Patients Urinary Catheter Date of Insertion: 04/03/20 Urinary Catheter Time of Insertion: 11:55 Data : 04/07/20 03:00 04/07/20 19:35 A&P Assessment and plan (1) Third degree AV block: Status: Acute (2) ARDS (adult respiratory distress syndrome): Status: Acute (3) Cardiac arrest: Status: Acute (4) Acute respiratory failure: Status: Acute Qualifiers: Respiratory failure complication: hypoxia and hypercapnia Qualified Code(s): J96.01 - Acute respiratory failure with hypoxia; J96.02 - Acute respiratory failure with hypercapnia (5) DM type 2 (diabetes mellitus, type 2): Status: Acute (6) Elevated troponin: Status: Acute Patient's presentation was likely secondary to combination of volume overload (improved CXR with diuresis) and infection (elevated WBC count and procaclitonin of 35). Continue antibiotics. Third degree heart block was likely secondary to electrolyte imbalance and resolved on the day of admission. Continue diuresis. Troponin elevation can be secondary to cardiac arrest and CPR. However, can not rule out NSTEMI. Heparin stopped because of bleeding from the ET tube. Continue aspirin daily Cardiology will follow along. Patient will need ischemic workup at some point. Will decide based on her progress. Repeat echo with contrast once patient is extubated to better evaluate the regional wall motion. Attestations Medical Necessity Statement*: Care expected to cross 2 midnights Coding Level of Care Code Acute Applications Manager for g Fwd Diagnoses Third degree AV block I44.2 ARDS (adult respiratory distress syndrome) J80 Cardiac arrest I46.9 Acute respiratory failure J96.01; J96.02 Respiratory failure complication: hypoxia and hypercapnia DM type 2 (diabetes mellitus, type 2) E11.9 Elevated troponin R79.89
[2020-04-07] MEDS: atorvastatin 40 mg Tablet PO (21:23)
[2020-04-07 22:18] LABS: Glucose Point of Care 222 mg/dL (70-110)
[2020-04-08] VITALS (58 sets, daily range): BP systolic 103–212; BP diastolic 42–112; PULSE 58–119; RESP 12–31; TEMP 36.4–37.2; O2SAT 90–100
[2020-04-08] MEDS: ipratropium-albuterol 3 mL Neb INHALATION ×4 (02:12→19:59)
[2020-04-08] MEDS: dexmedetomidine 400 MCG in sodium chloride 0.9% (100 ml) 100 ML 9.7 MCG IV (03:56)
[2020-04-08] MEDS: potassium chloride premix 40 MEQ/100 ML PREMIX 25 MEQ IV (04:24)
[2020-04-08] MEDS: FUROsemide 10 mg/mL SDV 10mL 100 MG IVP ×2 (04:28→15:03)
[2020-04-08] MEDS: propofol 1,000 MG/100 ML INJ 19.6 MG IV ×2 (05:16→10:54)
[2020-04-08 05:46] LABS: Basophils % 0.2 %; Eosinophils % 0.1 %; Hematocrit 25.1 % (37.0-47.0); Lymphocytes # 0.7 10^3/uL (0.8-4.8); Lymphocytes % 3.4 %; Mean Corpuscular HGB Conc 31.9 g/dL (30.0-36.0); Mean Corpuscular Hemoglobin 31.7 pg (28.0-34.0); Mean Corpuscular Volume 99.6 fL (81-99); Mean Platelet Volume 11.3 fL (7.4-10.4); Monocytes # 1.2 10^3/uL (0.2-0.9); Monocytes % 6.3 %; Neutrophils # 17.21 10^3/uL (1.8-7.7); Neutrophils % 87.2 %; Nucleated Red Blood Cells % 0 %; Platelet Count 264 10^3/cmm (130-400); Red Blood Count 2.52 10^6/uL (4.1-5.3); Red Cell Distribution Width 14.5 % (12.1-15.1); White Blood Count 19.7 10^3/uL (4.0-10.0)
[2020-04-08 06:18] LABS: Anion Gap 19.5 (5-19); Blood Urea Nitrogen 52 mg/dL (8-23); Calcium 8.7 mg/dL (8.5-10.5); Carbon Dioxide 26 mmol/L (22-29); Chloride 100 mmol/L (98-107); Glucose 216 mg/dL (65-115); Osmolality Calculated 315 mOsm/kg (285-295); Potassium 3.5 mmol/L (3.5-5.1); Sodium 142 mmol/L (136-145)
--- NOTE | 2020-04-08 06:37 | PC.NURSE ---
Shift Summary: Patient slept majority of shift. Some Hypotension and Bradycardic events noted-decreased sedation and pain medications in efforts to counteract these events. Spot BMP completed based on Potassium lab values, and prescribed admin of Lasix. MD Idris ordered K-Jimi ONCE IVPB. 1500 u/o 20 output- Chest tube drainage Central line dressing found saturated at shift change during nursing shift assessment. Site cleaned and new dressing applied. During bed bath/linen change patient was unable to tolerate large turns and would have Tachypneic events resulting in RR to increase upwards of 40-50/min. Patient would nod head yes when asked if she is having high anxiety events during periods of increased RR and stimuli. Patient's son called and verbalized that pt has a history of anxiety and reports severe claustrophobia and overall high anxiety. Fentanyl running @ 75mcg/min (decreased from 100mcg/min) Propofol 35mcg/min Precedex 0.4mcg/min NS 5mL/hr. Tube Feedings resumed at 10mL/hr.
--- NOTE | 2020-04-08 09:00 | PC.NURSE ---
Dr Regalado on unit assessing pt. Notified of pt's BP and questioned parameters. BP flucuates rapidly with anxiousness.
[2020-04-08] MEDS: ascorbic acid 500 mg Tablet OG-TUBE (10:15)
[2020-04-08] MEDS: pantoprazole 40 mg SDV IVP ×2 (10:15→21:22)
[2020-04-08] MEDS: azithromycin 500 MG in sodium chloride 0.9% 250 ML 250 MG IV (10:15)
[2020-04-08] MEDS: ALPRAZolam 0.25 mg Tablet PO ×2 (10:17→13:31)
[2020-04-08] MEDS: aspirin 81 mg Chew Tablet OG-TUBE (10:17)
--- NOTE | 2020-04-08 10:25 | PM.PN ---
Subjective Subjective: Interval history: In the last 24 hours, she was placed on CPAP trial which she tolerated well and we were are able to extubate her to BiPAP. We have held the feeding for now. She is making good urine out. Vitals and labs have been reviewed. Repeat echo with contrast have been ordered today. Medications: Reviewed: Yes Vitals/I&O/Wt Last Vital Signs Temp 99.0 F 04/08/20 08:00 Pulse 85 04/08/20 10:00 Resp 18 04/08/20 10:17 BP 180/57 04/08/20 10:00 Pulse Ox 94 04/08/20 10:00 04/07/20 04/08/20 04/08/20 22:59 06:59 14:59 Intake Total 783.455 / 999.273 315.667 / 1314.940 Output Total 1390 / 1890 680 / 2570 Balance -606.545 / -890.727 -364.333 / -1255.060 Weight last 48 hrs Weight 85.53 kg Weight 84.935 kg Physical Exam Narrative: EXAM NARRATIVE: EXAM NARRATIVE: EXAM NARRATIVE: General: Sedated, arousable. On arousal following commands HEENT: PERRLA, pupils bilaterally equal and reactive Chest: Bilateral coarse crackles CVS: S1-S2 regular, tachycardia, S3 gallop Abdomen: Soft, nontender, no organomegaly, bowel sounds present Extremities: Edema 2 plus. Urinary Catheter Management^: Doherty: Cath Placed During This Visit: yes Reason for Continuing Indwelling Catheter: Accurate Measurement of Urinary Output in Critically Ill Patients Urinary Catheter Date of Insertion: 04/03/20 Urinary Catheter Time of Insertion: 11:55 Data : 04/08/20 05:30 04/08/20 05:30 A&P Assessment and plan (1) Septic shock: Status: Acute (2) Cardiac arrest: Status: Acute (3) Acute respiratory failure: Status: Acute Qualifiers: Respiratory failure complication: hypoxia and hypercapnia Qualified Code(s): J96.01 - Acute respiratory failure with hypoxia; J96.02 - Acute respiratory failure with hypercapnia (4) Acute renal failure: Status: Acute Qualifiers: Acute renal failure type: unspecified Qualified Code(s): N17.9 - Acute kidney failure, unspecified (5) ARDS (adult respiratory distress syndrome): Status: Acute (6) Acidosis, metabolic, with respiratory acidosis: Status: Acute (7) Polymyalgia rheumatica: Status: Acute (8) Hypertension: Status: Acute (9) DM type 2 (diabetes mellitus, type 2): Status: Acute (10) Hypothyroidism: Status: Acute (11) LBBB (left bundle branch block): Status: Acute (12) Third degree AV block: Status: Acute (13) Hyperkalemia: Status: Acute (14) DKA (diabetic ketoacidoses): Status: Acute Additional A&P Information 70-year-old female with past medical history of hypertension, polymyalgia rheumatica on chronic steroids who was recently started on Bactrim for last 10 days because of cellulitis of her lower limbs came to the ER after being intubated in the field after which she developed cardiac arrest for which she had ACLS protocol for 10 minutes. Post [place] patient was in third-degree heart block which relieved after dopamine. Neurology: Awake and arousable on vent. Currently GCS is [address] head done on admission negative for any acute bleed. Sedation vacation. Seizure precautions. Cardiology: Patient has history of hypertension for which she takes atenolol and lisinopril at home. Keep mean arterial pressures over 65 mmHg. . Patient on arrival was in third-degree heart block. Right now patient is having sinus tachycardia with left bundle branch block and a possible fourth degree heart block. Given the presentation to the hospital cannot rule out acute coronary syndrome with the patient. No old EKG in the system to compare. No more heart block anymore at present. Likely NSTEMI versus demand ischemia. Could be secondary to cardiac arrest and CPR. Cannot rule out ACS. Cardiology was consulted. Because troponin went up to 2400 chances of NSTEMI are high so she was started on heparin drip. Heparin drip has been stopped as she was having bleeding from the E.T tube. If patient improves and depending on the clinical picture. Patient might go for left heart cath during this hospitalization. Echocardiogram results appreciated. Continue with aspirin through the OG tube. statins has been started as the liver function is normal. HbA1c 6.9. Congestive heart failure: Patient still looking fluid overloaded on chest x-ray on clinically. Good urine response yesterday. Continue Lasix 100 mg twice daily. We will monitor input and output strictly. Daily weights. Echocardiogram shows an EF of 40% with questionable regional wall motion abnormality because of technical difficulty. Pulmonology: ARDS: Most likely because of pneumonia versus congestive heart failure. Continue with imipenem and azithromycin both renally dosed. Diuresis as above. Titrate ventilator settings keeping saturation over 90% with PCO2 over 45. No plan for extubation today. Continue with diuresis. For now we will try to put patient on pressure support for 4 to 5 hours so she can work breathing on her own. COVID-19 : Negative Advair, Spiriva. Chest vest. GI: We have started n.g tube feeding Protonix twice daily. Renal: Acute renal failure. Creatinine mildly improving today. Most likely because of combination of dehydration, Bactrim, lisinopril. Medication reconciliation done for nephrotoxic drugs. Will dose antibiotics renally. Hyperkalemia: Resolved. Continue to monitor BMP daily for now. Acidosis: Resolved. Mixed respiratory and metabolic. We will treat as above and continue to follow. Infectious: As patient has remained hemodynamically stable and afebrile with MRSA negative we will stop vancomycin and monitor today. Continue with imipenem for possible aspiration along with azithromycin. Patient would most likely require azithromycin for 5-day course. Day 3 today. Patient has left knee swelling along with possible effusion and ecchymosis. Will get knee x-ray. If patient blood cultures come back positive most likely will have to have arthrocentesis to rule out septic joint. For now patient has other sources of infection which are more possible. COVID-19 results elevated. Endocrine: DKA resolved. Continue with insulin sliding scale at moderate dose with every 6 checks. Needed 12 units insulin in last 24 hours. Patient takes prednisone 10 mg at home daily for polymyalgia rheumatica. Continue with methylprednisolone at 60 mg IV every 6 hours. Goals of care: Discussed in detail with patient's son at bedside. Discussed that patient has a very very poor guarded prognosis because of cardiac arrest and respiratory arrest. Also discussed that it is quite possible that patient has brain injury or even possible has no brain functions. Discussed that we will continue to monitor for now. For now patient is full code. Family is also okay with dialysis if required. SCD FOR DVT prophylaxis. Protonix for PUD prophylaxis. Full code. Severely guarded prognosis Attestations Medical Necessity Statement*: She needs to be in hospital for continued management of heart failure, sepsis,PNA Coding Level of Care Code Acute Packing Room Supervisor for Chg Fwd Diagnoses Septic shock A41.9; R65.21 Cardiac arrest I46.9 Acute respiratory failure J96.01; J96.02 Respiratory failure complication: hypoxia and hypercapnia Acute renal failure N17.9 Acute renal failure type: unspecified ARDS (adult respiratory distress syndrome) J80 Acidosis, metabolic, with respiratory acidosis E87.4 Polymyalgia rheumatica M35.3 Hypertension I10 DM type 2 (diabetes mellitus, type 2) E11.9 Hypothyroidism E03.9 LBBB (left bundle branch block) I44.7 Third degree AV block I44.2 Hyperkalemia E87.5 DKA (diabetic ketoacidoses) E11.10
[2020-04-08] MEDS: levothyroxine 100 mcg SDV 55 MCG IVP (10:37)
--- NOTE | 2020-04-08 11:50 | PC.SOCIAL ---
IMM updated Explained to pt's Pg 2 IMM via phone. No questions voiced. Provided a pt a copy & left on pt's bedside table. Signed, dated, & timed copy in chart.
[2020-04-08 12:16] LABS: Glucose Point of Care 233 mg/dL (70-110)
[2020-04-08 12:16] LABS: Glucose Point of Care 236 mg/dL (70-110)
--- NOTE | 2020-04-08 13:00 | PC.NURSE ---
Dr Regalado called notified of pt's BP and anxiousness. Meds ordered for anxiety. BP has not met PRN DBP parameters.
[2020-04-08 14:20] LABS: ABG PH Result 7.56 (7.35-7.45); Alveolar-Arterial Oxygen Gradi 14.2 mmHg (5-10); Blood Gas Allen Test Pos; Blood Gas Operator Identificat CAK; Blood Gas Sample Site Radial, left; Blood Gas Sample Type Arterial; Carboxyhemoglobin 1.4 %THgb (0.4-20.1); HCO3 ABG 28.5 mmol/L (22-26); Ionized Calcium Level - ABG 1.1 mmol/L (1.1-1.4); Methemoglobin 0.6 % (0.4-1.5); Oxygen Device VENT; Oxygen Saturation ABG 94.9; PO2 ABG 64.8 mmHg (80.0-100.0); Total Hemoglobin 9.1 g/dL (12-16)
[2020-04-08] MEDS: hyDRALAzine 20 mg/mL INJ 1 mL 10 MG IVP ×2 (15:03→19:39)
[2020-04-08] MEDS: morphine 4 mg/mL SDV 1 mL 2 MG IVP ×2 (16:50→23:28)
[2020-04-08] MEDS: nitroglycerin drip 50 MG/250 ML PREMIX IV (21:00)
--- NOTE | 2020-04-08 21:14 | PC.NURSE ---
Addendum entered by Nydia Abad RN 04/10/20 05:48: Witnessed waste of this medication Original Note: Fentanyl Drip Waste 40 ml remaining in Fentanyl drip bag. 2 RN verify with Nydia KRAMER. 40 ml wasted.
[2020-04-09] VITALS (58 sets, daily range): BP systolic 110–219; BP diastolic 54–115; PULSE 84–122; RESP 8–29; TEMP 36.6–36.9; O2SAT 85–97
[2020-04-09] MEDS: morphine 4 mg/mL SDV 1 mL 2 MG IVP ×3 (02:44→17:12)
[2020-04-09] MEDS: FUROsemide 10 mg/mL SDV 10mL 100 MG IVP ×2 (03:54→17:12)
[2020-04-09 04:26] LABS: Anion Gap 20.9 (5-19); Blood Urea Nitrogen 60 mg/dL (8-23); Calcium 9.1 mg/dL (8.5-10.5); Carbon Dioxide 27 mmol/L (22-29); Chloride 102 mmol/L (98-107); Glucose 243 mg/dL (65-115); Osmolality Calculated 329 mOsm/kg (285-295); Sodium 147 mmol/L (136-145)
[2020-04-09 04:30] LABS: Potassium 2.9 mmol/L (3.5-5.1)
[2020-04-09] MEDS: potassium chloride premix 40 MEQ/100 ML PREMIX 25 MEQ IV ×3 (05:03→17:24)
[2020-04-09] MEDS: perflutren protein-a microsphr 0.22 mg/mL SDV 3 mL IV (07:05)
--- NOTE | 2020-04-09 07:38 | XR_ITS ---
WS: [id number] Portable AP semiupright chest, 04/09/2020 Clinical Data: pneumothorax Comparison: Portable chest, 04/07/2020. Findings: The endotracheal tube and nasogastric tube have been removed. The right chest tube remains in position. No pneumothorax is present. The heart is enlarged. There is consolidation or atelectasis adjacent to the right cardiac border. The aortic arch and descending aorta show calcification and to rtuosity. Monitor leads are on the chest wall. XR/XR chest 1V portable [id number] Impression: 1. No change in right chest tube. 2. Atherosclerosis and cardiomegaly. 3. Removal of endotracheal tube and nasogastric tube.
[2020-04-09] MEDS: pantoprazole 40 mg SDV IVP (08:26)
[2020-04-09] MEDS: azithromycin 500 MG in sodium chloride 0.9% 250 ML 250 MG IV (08:26)
[2020-04-09] MEDS: ipratropium-albuterol 3 mL Neb INHALATION ×2 (09:26→15:27)
[2020-04-09] MEDS: nitroglycerin drip 50 MG/250 ML PREMIX 27 MG IV (09:32)
[2020-04-09] MEDS: levothyroxine 100 mcg SDV 55 MCG IVP (09:50)
--- NOTE | 2020-04-09 11:19 | PC.OT ---
OT NOTE: OT EVALUATION ORDERS RECEIVED. PER NURSING, PATIENT IS AGITATED ON BIPAP; PULLING AT IT AND MINIMALLY VERBAL RESPONSIVE AT THIS TIME. REQUESTS HOLD FOR TODAY ON PT/OT EVALS. DISCUSSED PATIENT WITH HEART 2 HEART ROUNDING TEAM AND DOCTOR AND DOCTOR VERBALIZED OK TO HOLD FOR TODAY BUT WANTS EVALUATIONS ATTEMPTED TOMORROW.
[2020-04-09 11:28] LABS: Glucose Point of Care 213 mg/dL (70-110)
[2020-04-09 11:28] LABS: Glucose Point of Care 229 mg/dL (70-110)
[2020-04-09 11:28] LABS: Glucose Point of Care 281 mg/dL (70-110)
--- NOTE | 2020-04-09 11:32 | PC.SLP ---
Discussed with physician. CNC GRINDER eval being put on hold until tomorrow. Pt only tolerating being off BiPAP for very short periods of time.
[2020-04-09 12:20] LABS: Potassium 3.1 mmol/L (3.5-5.1)
--- NOTE | 2020-04-09 15:58 | PM.PN ---
Subjective Subjective: Interval history: Patient has been intermittently on high flow oxygen through nasal cannula as well as BiPAP and she has maintained a saturation greater than 95%. She is communicating in a limited manner with her family. She has been on nitro drip for elevated blood pressure. P.o. antihypertensives has not been possible as she is at risk for possible aspiration. We will get a speech and swallow evaluation tomorrow. PT / OT has also been consulted. Medications: Reviewed: Yes Vitals/I&O/Wt Last Vital Signs Temp 97.9 F 04/09/20 14:15 Pulse 109 H 04/09/20 15:29 Resp 20 H 04/09/20 15:27 BP 160/78 04/09/20 14:15 Pulse Ox 93 04/09/20 15:27 04/09/20 04/09/20 04/09/20 06:59 14:59 22:59 Intake Total 257.15 / 1203.330 523.200 / 523.200 Output Total 2610 / 4210 1400 / 1400 Balance -2352.85 / -3006.670 -876.800 / -876.800 Weight last 48 hrs Weight 85.53 kg Physical Exam Narrative: EXAM NARRATIVE: EXAM NARRATIVE: EXAM NARRATIVE: EXAM NARRATIVE: General: Sedated, arousable. On arousal following commands HEENT: PERRLA, pupils bilaterally equal and reactive Chest: Bilateral coarse crackles CVS: S1-S2 regular, tachycardia, S3 gallop Abdomen: Soft, nontender, no organomegaly, bowel sounds present Extremities: Edema 1+ . Urinary Catheter Management^: Doherty: Cath Placed During This Visit: yes Reason for Continuing Indwelling Catheter: Accurate Measurement of Urinary Output in Critically Ill Patients Urinary Catheter Date of Insertion: 04/03/20 Urinary Catheter Time of Insertion: 11:55 Data : 04/08/20 05:30 04/09/20 11:40 Micro: Microbiology 04/04/20 11:05 Blood Culture - Final Blood NO GROWTH AFTER 5 DAYS 04/04/20 10:51 Blood Culture - Final Blood NO GROWTH AFTER 5 DAYS A&P Assessment and plan (1) Septic shock: Status: Acute (2) Cardiac arrest: Status: Acute (3) Acute respiratory failure: Status: Acute Qualifiers: Respiratory failure complication: hypoxia and hypercapnia Qualified Code(s): J96.01 - Acute respiratory failure with hypoxia; J96.02 - Acute respiratory failure with hypercapnia (4) Acute renal failure: Status: Acute Qualifiers: Acute renal failure type: unspecified Qualified Code(s): N17.9 - Acute kidney failure, unspecified (5) ARDS (adult respiratory distress syndrome): Status: Acute (6) Acidosis, metabolic, with respiratory acidosis: Status: Acute (7) Polymyalgia rheumatica: Status: Acute (8) Hypertension: Status: Acute (9) DM type 2 (diabetes mellitus, type 2): Status: Acute (10) Hypothyroidism: Status: Acute (11) LBBB (left bundle branch block): Status: Acute (12) Third degree AV block: Status: Acute (13) Hyperkalemia: Status: Acute (14) DKA (diabetic ketoacidoses): Status: Acute Additional A&P Information 70-year-old female with past medical history of hypertension, polymyalgia rheumatica on chronic steroids who was recently started on Bactrim for last 10 days because of cellulitis of her lower limbs came to the ER after being intubated in the field after which she developed cardiac arrest for which she had ACLS protocol for 10 minutes. Post [place] patient was in third-degree heart block which relieved after dopamine. Neurology: Alert and awake awake. CT head done on admission negative for any acute bleed. Cardiology: Patient has history of hypertension for which she takes atenolol and lisinopril at home. Keep mean arterial pressures over 65 mmHg. . Patient on arrival was in third-degree heart block. Right now patient is having sinus tachycardia with left bundle branch block and a possible fourth degree heart block. Given the presentation to the hospital cannot rule out acute coronary syndrome with the patient. No old EKG in the system to compare. No more heart block anymore at present. Likely NSTEMI versus demand ischemia. Could be secondary to cardiac arrest and CPR. Cannot rule out ACS. Cardiology was consulted. Because troponin went up to 2400 chances of NSTEMI are high so she was started on heparin drip. Heparin drip has been stopped as she was having bleeding from the E.T tube. If patient improves and depending on the clinical picture. Patient might go for left heart cath during this hospitalization. Echocardiogram results appreciated. Continue with aspirin statins has been started as the liver function is normal. HbA1c 6.9. Congestive heart failure: Patient still has fluid overloaded on chest x-ray as well as clinically. Good urine response yesterday. We will decrease Lasix to 40 mg q12 h daily from Lasix 100 mg twice daily. We will monitor input and output strictly. Daily weights. Echocardiogram shows an EF of 40% with questionable regional wall motion abnormality because of technical difficulty. Pulmonology: Ac hypoxic respiratory failure: Secondary to pneumonia as well as decompensated systolic heart failure Status post extubation. Continue antibiotics. Continue with nebs COVID-19 : Negative GI: We have started n.g tube feeding Protonix twice daily. Renal: Acute renal failure. Creatinine mildly improving today. Most likely because of combination of dehydration, Bactrim, lisinopril. Medication reconciliation done for nephrotoxic drugs. Will dose antibiotics renally. Hyperkalemia: Resolved. Continue to monitor BMP daily for now. Acidosis: Resolved. Mixed respiratory and metabolic. We will treat as above and continue to follow. Infectious: As patient has remained hemodynamically stable and afebrile with MRSA negative we will stop vancomycin and monitor today. Continue with imipenem for possible aspiration along with azithromycin. Patient would most likely require azithromycin for 5-day course. Day 3 today. Patient has left knee swelling along with possible effusion and ecchymosis. Will get knee x-ray. If patient blood cultures come back positive most likely will have to have arthrocentesis to rule out septic joint. For now patient has other sources of infection which are more possible. COVID-19 results elevated. Endocrine: DKA resolved. Continue with insulin sliding scale at moderate dose with every 6 checks. Needed 12 units insulin in last 24 hours. Patient takes prednisone 10 mg at home daily for polymyalgia rheumatica. Continue with methylprednisolone at 60 mg IV every 6 hours. Goals of care: Discussed in detail with patient's son at bedside. Discussed that patient has a very very poor guarded prognosis because of cardiac arrest and respiratory arrest. Also discussed that it is quite possible that patient has brain injury or even possible has no brain functions. Discussed that we will continue to monitor for now. For now patient is full code. Family is also okay with dialysis if required. SCD FOR DVT prophylaxis. Protonix for PUD prophylaxis. Full code. Severely guarded prognosis Attestations Medical Necessity Statement*: Patient needs to be in hospital for management of pneumonia and post ICU syndrome. Coding Level of Care Code Acute Patient Resource Specialist for [facility] Fwd Diagnoses Septic shock A41.9; R65.21 Cardiac arrest I46.9 Acute respiratory failure J96.01; J96.02 Respiratory failure complication: hypoxia and hypercapnia Acute renal failure N17.9 Acute renal failure type: unspecified ARDS (adult respiratory distress syndrome) J80 Acidosis, metabolic, with respiratory acidosis E87.4 Polymyalgia rheumatica M35.3 Hypertension I10 DM type 2 (diabetes mellitus, type 2) E11.9 Hypothyroidism E03.9 LBBB (left bundle branch block) I44.7 Third degree AV block I44.2 Hyperkalemia E87.5 DKA (diabetic ketoacidoses) E11.10
[2020-04-09] MEDS: hyDRALAzine 20 mg/mL INJ 1 mL 10 MG IVP (17:06)
--- NOTE | 2020-04-09 18:44 | USCV_ITS ---
Ophelia Wade Age: 79 Gender: F : 1940 Exam Date: 04/09/2020 06:50 Ordering Phys: Faraz Regalado MD Technologist: Alvaro Man Exam Location: [facility] Indication: HEART FAILURE BP: 166 / 74 HR: 100 Rhythm: Sinus Technical Quality: Adequate MEASUREMENTS (Male / Female) Normal Values 2D ECHO LVOT Diameter 2.0 cm LV Ejection Fraction MOD 2C 61.7 % LV Ejection Fraction 2C AL 62.3 % LA Diameter 4.7 cm LA Width 3.8 cm LA Height 4.7 cm RA Width 3.1 cm RA Height 4.9 cm M-MODE LV Diastolic Diameter MM 4.4 cm 4.2 - 5.9 / 3.9 - 5.3 cm LV Systolic Diameter MM 3.0 cm LV Ejection Fraction MM Teich 61.4 % IVS Diastolic Thickness MM 1.8 cm 0.6 - 1.0 / 0.6 - 0.9 cm IVS Systolic Thickness MM 2.0 cm LVPW Diastolic Thickness MM 1.4 cm 0.6 - 1.0 / 0.6 - 0.9 cm LVPW Systolic Thickness MM 1.9 cm RV Diastolic Diameter MM 2.1 cm Aortic Annulus Diameter 3.6 cm LA Ao Ratio MM 1.3 MV E Point Septal Separation 1.7 cm DOPPLER AV Peak Velocity 134.0 cm/s LVOT Peak Velocity 136.0 cm/s AV Area Cont Eq vti 3.1 cm squared AV Area Cont Eq pk 3.2 cm squared MV Area PHT 4.8 cm squared Mitral E to A Ratio 0.6 MV E' Velocity 87.0 cm/s TR Peak Velocity 162.0 cm/s TR Peak Gradient 10.5 mmHg TV Peak E Velocity 132.0 cm/s Right Atrial Pressure 3.0 mmHg Pulmonary Artery Systolic Pressu 13.5 mmHg FINDINGS Left Ventricle Normal left ventricular size and systolic function. LV systolic function is normal with EF of 60 to 65%. No regional wall motion abnormalities are noted. Diastolic dysfunction is present. Right Ventricle The right ventricle is normal in size and function. Right Atrium The right atrium is normal in size. Left Atrium The left atrium is normal in size. Mitral Valve Grossly normal. There is no mitral regurgitation. Aortic Valve Not well visualized. No significant aortic stenosis or regurgitation is present. Tricuspid Valve Not well visualized. No significant regurgitation is noted. Insufficient TR jet to calculate RVSP. Pulmonic Valve Grossly normal Pericardium Normal pericardium without effusion. Aorta Normal ascending aorta dimension. CONCLUSIONS This is a limited quality echocardiogram because of limited visualization. Contrast agent used to assess wall motion. Normal LV systolic function with EF of 60 to 65%. No regional wall motion abnormalities are present. Kris Miranda MD (Electronically Signed) Final Date: 09 April 2020 09:19 S
--- NOTE | 2020-04-09 19:22 | PC.NURSE ---
Pt made slow but steady progress today. She is currently on an Optiflow nasal cannula at 50L/min oxygen and 70% FiO2. Dr. Duggan removed the chest tube at 15:20 today, tightened the suture, and applied a dry dressing with petroleum gauze, 4x4 dry gauze, and adhesive dressing. Chest tube drainage during day shift was 50ml, with total output in the drainage system at 500ml. Pt tolerated the chest tube removal without difficulty. Pt is slowly becoming more alert, but still oriented to self and location only. She is starting to speak, but so far only says, help me please and will answer some yes/no questions by nodding or shaking her head. She makes eye contact sometimes, and follows commands sometimes. Pt's Zhang came to visit. He informed this nurse that if pt improves to the point of needing inpatient rehab, he would like her to go to a facility located in [place], [place]. Spoke with her son Eusebio several times today; all of his questions answered. Also was able to allow a granddaughter (Karoline Elder) to interact with pt via [employer] on the facility iPad. Pt seemed to perk up during that time, and also while was here.
--- NOTE | 2020-04-09 21:46 | PM.PN ---
Subjective Subjective: Interval history: Patient is extubated now. She is currently on high flow nasal cannula. Denies any chest pain but looks confused. ECHO was done today that showed normal LV systolic function with no regional wall motion abnormalities. Vitals/I&O/Wt Last Vital Signs Temp 98.3 F 04/09/20 20:00 Pulse 105 H 04/09/20 21:35 Resp 18 04/09/20 21:35 BP 219/83 04/09/20 21:00 Pulse Ox 92 04/09/20 21:35 04/09/20 04/09/20 04/09/20 06:59 14:59 22:59 Intake Total 257.15 / 1203.330 773.200 / 773.200 100 / 873.200 Output Total 2610 / 4210 1400 / 1400 600 / 2000 Balance -2352.85 / -3006.670 -626.800 / -626.800 -500 / -1126.800 Weight last 48 hrs Weight 188 lb 8.988 oz Physical Exam Narrative: EXAM NARRATIVE: General: Arousable, follows commands but is confused HEENT: PERRLA, pupils bilaterally equal and reactive Chest: Bilateral crackles CVS: S1-S2 regular, tachycardia, Abdomen: Soft, nontender, no organomegaly, bowel sounds present Extremities: Edema 1+ . Urinary Catheter Management^: Doherty: Cath Placed During This Visit: yes Reason for Continuing Indwelling Catheter: Accurate Measurement of Urinary Output in Critically Ill Patients Urinary Catheter Date of Insertion: 04/03/20 Urinary Catheter Time of Insertion: 11:55 Data : 04/08/20 05:30 04/09/20 11:40 Micro: Microbiology 04/04/20 11:05 Blood Culture - Final Blood NO GROWTH AFTER 5 DAYS 04/04/20 10:51 Blood Culture - Final Blood NO GROWTH AFTER 5 DAYS A&P Assessment and plan (1) Third degree AV block: Status: Acute (2) ARDS (adult respiratory distress syndrome): Status: Acute (3) Cardiac arrest: Status: Acute (4) Acute respiratory failure: Status: Acute Qualifiers: Respiratory failure complication: hypoxia and hypercapnia Qualified Code(s): J96.01 - Acute respiratory failure with hypoxia; J96.02 - Acute respiratory failure with hypercapnia (5) DM type 2 (diabetes mellitus, type 2): Status: Acute (6) Elevated troponin: Status: Acute Patient's presentation was likely secondary to combination of volume overload (improved CXR with diuresis) and infection (elevated WBC count and procaclitonin of 35). Continue antibiotics. Third degree heart block was likely secondary to electrolyte imbalance and resolved on the day of admission. Continue diuresis. Troponin elevation likely secondary to cardiac arrest and CPR. Patient had a repeat echo with contrast that showed normal LV systolic function with EF of 60-65%. Patient will need ischemic workup once patient is stable. Blood pressure is high and patient is likely not able to tolerate oral medications. Nitro gtt can be continued for blood pressure control. Attestations Medical Necessity Statement*: Care expected to cross 2 midnights. 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
--- NOTE | 2020-04-09 21:57 | XR_ITS ---
WS: [id number] Portable AP upright chest, 04/09/2020, 2215 hours Clinical Data: NG tube placement Comparison: Portable chest, 04/09/2020, 0816 hours. Findings: The feeding tube has been advanced but has entered the trachea and right mainstem bronchus. The tip ends in the midportion of the right lower lobe. The feeding tube needs to be reinserted in o rder to enter the esophagus. The right chest tube is no longer present. The heart and lungs show no c hange from before. XR/XR chest 1V portable [id number] Impression: Insertion of feeding tube into trachea and right lower lobe bronchus.
[2020-04-10] VITALS (39 sets, daily range): BP systolic 96–219; BP diastolic 41–83; PULSE 93–120; RESP 8–45; TEMP 36.6–37.7; O2SAT 91–269
[2020-04-10] MEDS: perflutren protein-a microsphr 0.22 mg/mL SDV 3 mL (01:40)
[2020-04-10] MEDS: pantoprazole 40 mg SDV IVP ×2 (01:51→08:58)
[2020-04-10] MEDS: hyDRALAzine 20 mg/mL INJ 1 mL 5 MG IVP (01:55)
[2020-04-10 07:22] LABS: Basophils % 0.2 %; Eosinophils % 0.2 %; Hematocrit 24.9 % (37.0-47.0); Hemoglobin 7.7 g/dL (11.5-15.3); Lymphocytes # 0.8 10^3/uL (0.8-4.8); Lymphocytes % 4.5 %; Mean Corpuscular HGB Conc 30.9 g/dL (30.0-36.0); Mean Corpuscular Hemoglobin 31.3 pg (28.0-34.0); Mean Corpuscular Volume 101.2 fL (81-99); Mean Platelet Volume 11.4 fL (7.4-10.4); Monocytes # 2.3 10^3/uL (0.2-0.9); Monocytes % 12.3 %; Neutrophils # 13.79 10^3/uL (1.8-7.7); Nucleated Red Blood Cells % 0.2 %; Platelet Count 283 10^3/cmm (130-400); Red Blood Count 2.46 10^6/uL (4.1-5.3); White Blood Count 18.4 10^3/uL (4.0-10.0)
[2020-04-10 07:46] LABS: Anion Gap 17.1 (5-19); Blood Urea Nitrogen 58 mg/dL (8-23); Calcium 9.3 mg/dL (8.5-10.5); Carbon Dioxide 30 mmol/L (22-29); Chloride 105 mmol/L (98-107); Glucose 294 mg/dL (65-115); Magnesium 1.8 mg/dL (1.7-2.3); Osmolality Calculated 333 mOsm/kg (285-295); Potassium 4.1 mmol/L (3.5-5.1); Sodium 148 mmol/L (136-145)
[2020-04-10 07:47] LABS: INR 1.13 (0.8-1.2)
[2020-04-10] MEDS: FUROsemide 10 mg/mL SDV 4mL 40 MG IVP (07:55)
[2020-04-10] MEDS: ipratropium-albuterol 3 mL Neb INHALATION ×2 (08:00→15:41)
[2020-04-10 08:04] LABS: Slide Review Slide Review Perform
[2020-04-10] MEDS: levothyroxine 100 mcg SDV 55 MCG IVP (09:09)
[2020-04-10] MEDS: nitroglycerin drip 50 MG/250 ML PREMIX 24 MG IV (09:12)
--- NOTE | 2020-04-10 09:37 | PM.PN ---
Subjective Subjective: Interval history: Patient has continued to require.BiPAP support. FiO2 ranging from 50% to 80%. Vitals and labs have been reviewed. Medications: Reviewed: Yes Vitals/I&O/Wt Last Vital Signs Temp 98 F 04/10/20 09:00 Pulse 116 H 04/10/20 09:00 Resp 28 H 04/10/20 09:00 BP 96/51 04/10/20 09:00 Pulse Ox 91 04/10/20 09:00 04/09/20 04/10/20 04/10/20 22:59 06:59 14:59 Intake Total 130 / 903.200 408.1 / 1311.300 Output Total 1250 / 2650 800 / 3450 Balance -1120 / -1746.800 -391.9 / -2138.700 Weight last 48 hrs Weight 81.238 kg Physical Exam Narrative: EXAM NARRATIVE: Patient follows minimum command. HENMT: COMMON NORMALS: normocephalic, atraumatic, hearing grossly normal bilaterally and external ears normal HEAD & SCALP: normocephalic and atraumatic EXTERNAL EAR: Yes external ears normal Eye: COMMON NORMALS: no scleral icterus GENERAL EYE: appearance normal, both eyes and all related structures Chest: COMMONS NORMALS: normal inspection of the chest Resp: OTHER: bilateral minimal basal crackles. No wheezes, no rhonchi Cardio: COMMON NORMALS: regular rate, regular rhythm, S1 normal heart sound present, S2 normal heart sound present, No gallops present (Cardio), No murmurs present (Cardio), No rub (Cardio) and Peripheral pulses 2+ throughout RATE: regular rate RHYTHM: regular rhythm HEART SOUNDS: S1 normal heart sound present and S2 normal heart sound present PERIPHERAL PULSES: Peripheral pulses 2+ throughout GI: COMMON NORMALS: Normal to inspection, nondistended, normoactive bowel sounds present, Soft to palpation, non-tender, No hepatosplenomegaly present and no masses AUSCULTATION: Yes normoactive bowel sounds PALPATION: Yes Soft to palpation and Yes No hepatosplenomegaly present RECTAL EXAM: deferred Extremity: COMMON NORMALS: no clubbing, cyanosis or edema and no pedal edema Urinary Catheter Management^: Doherty: Cath Placed During This Visit: yes Reason for Continuing Indwelling Catheter: Accurate Measurement of Urinary Output in Critically Ill Patients Urinary Catheter Date of Insertion: 04/03/20 Urinary Catheter Time of Insertion: 11:55 Data : 04/10/20 07:08 04/10/20 07:08 Micro: Microbiology 04/04/20 11:05 Blood Culture - Final Blood NO GROWTH AFTER 5 DAYS 04/04/20 10:51 Blood Culture - Final Blood NO GROWTH AFTER 5 DAYS A&P Assessment and plan (1) Septic shock: Status: Acute (2) Cardiac arrest: Status: Acute (3) Acute respiratory failure: Status: Acute Qualifiers: Respiratory failure complication: hypoxia and hypercapnia Qualified Code(s): J96.01 - Acute respiratory failure with hypoxia; J96.02 - Acute respiratory failure with hypercapnia (4) Acute renal failure: Status: Acute Qualifiers: Acute renal failure type: unspecified Qualified Code(s): N17.9 - Acute kidney failure, unspecified (5) ARDS (adult respiratory distress syndrome): Status: Acute (6) Acidosis, metabolic, with respiratory acidosis: Status: Acute (7) Polymyalgia rheumatica: Status: Acute (8) Hypertension: Status: Acute (9) DM type 2 (diabetes mellitus, type 2): Status: Acute (10) Hypothyroidism: Status: Acute (11) LBBB (left bundle branch block): Status: Acute (12) Third degree AV block: Status: Acute (13) Hyperkalemia: Status: Acute (14) DKA (diabetic ketoacidoses): Status: Acute Additional A&P Information 70-year-old female with past medical history of hypertension, polymyalgia rheumatica on chronic steroids who was recently started on Bactrim for last 10 days because of cellulitis of her lower limbs came to the ER after being intubated in the field after which she developed cardiac arrest for which she had ACLS protocol for 10 minutes. Post Nadira patient was in third-degree heart block which relieved after dopamine. Neurology: Awake, follow basic commands. CT head done on admission negative for any acute bleed. Cardiology: Patient has history of hypertension for which she takes atenolol and lisinopril at home.: Currently not able to take oral medications. Continue with nitro drip. Patient on arrival was in third-degree heart block. Right now patient is having sinus tachycardia with left bundle branch block and a possible fourth degree heart block. Given the presentation to the hospital cannot rule out acute coronary syndrome with the patient. No old EKG in the system to compare. No more heart block anymore at present. Likely NSTEMI versus demand ischemia. Could be secondary to cardiac arrest and CPR. Cannot rule out ACS. Cardiology was consulted. Because troponin went up to 2400 chances of NSTEMI are high so she was started on heparin drip. Heparin drip has been stopped as she was having bleeding from the E.T tube. If patient improves and depending on the clinical picture. Patient might go for left heart cath during this hospitalization. Echocardiogram results appreciated. Continue with aspirin statins has been started as the liver function is normal. HbA1c 6.9. Congestive heart failure: Patient still has fluid overloaded on chest x-ray as well as clinically. Good urine response yesterday. Continue Lasix 40 mg q12 h daily. We will monitor input and output strictly. Daily weights. Echocardiogram shows an EF of 40% with questionable regional wall motion abnormality because of technical difficulty. Pulmonology: Ac hypoxic respiratory failure: Secondary to pneumonia as well as decompensated systolic heart failure Status post extubation. antibiotics imipenem and azithromycin has been discontinued. Continue with nebs Continue Solu-Medrol 60 mg q24h daily. COVID-19 : Negative GI: Failed to pass NG Tube Continue Protonix twice daily. Renal: Acute renal failure. Creatinine mildly improving today. Most likely because of combination of dehydration, Bactrim, lisinopril. Medication reconciliation done for nephrotoxic drugs. Will dose antibiotics renally. Hyperkalemia: Resolved. Continue to monitor BMP daily for now. Acidosis: Resolved. Mixed respiratory and metabolic. We will treat as above and continue to follow. Infectious: As patient has remained hemodynamically stable and afebrile with MRSA negative we will stop vancomycin and monitor today. Continue with imipenem for possible aspiration along with azithromycin. Patient would most likely require azithromycin for 5-day course. Day 3 today. Patient has left knee swelling along with possible effusion and ecchymosis. Will get knee x-ray. If patient blood cultures come back positive most likely will have to have arthrocentesis to rule out septic joint. For now patient has other sources of infection which are more possible. COVID-19 results elevated. Endocrine: DKA resolved. Continue with insulin sliding scale at moderate dose with every 6 checks. Needed 12 units insulin in last 24 hours. Patient takes prednisone 10 mg at home daily for polymyalgia rheumatica. Continue with methylprednisolone at 60 mg IV every 6 hours. Goals of care: Discussed in detail with patient's son at bedside. Discussed that patient has a very very poor guarded prognosis because of cardiac arrest and respiratory arrest. Also discussed that it is quite possible that patient has brain injury or even possible has no brain functions. Discussed that we will continue to monitor for now. For now patient is full code. Family is also okay with dialysis if required. SCD FOR DVT prophylaxis. Protonix for PUD prophylaxis. Full code. Severely guarded prognosis Attestations Medical Necessity Statement*: Patient needs to be in hospital for management of pneumonia, and post ICU syndrome. 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
--- NOTE | 2020-04-10 09:39 | PC.NURSE ---
attempted to insert dobhoff x [address] here aware in room with last attempt will hold off at this time for placement
--- NOTE | 2020-04-10 10:10 | PC.SOCIAL ---
IMM Updated Page 2 of IMM updated and given to patient. Initialed, dated, and timed and placed back in chart.
--- NOTE | 2020-04-10 10:15 | PC.NURSE ---
placed back on bipap very weak and sat decreased 91 % on high flow at this time
--- NOTE | 2020-04-10 12:02 | PC.SLP ---
Pt unable to participate with TECHNOLOGY TRAINING ASSOCIATE eval this morning due to decreased alertness and decline in respiratory status.
--- NOTE | 2020-04-10 13:05 | PC.SLP ---
Pt not able to participate in TUB PULLER eval due to decreased alertness.
--- NOTE | 2020-04-10 15:46 | PC.OT ---
OT EVALUATION ATTEMPTED AT 1300 AND PATIENT WAS UNABLE TO KEEP EYES OPEN OR FOLLOW COMMANDS. ATTEMPTED AT 1530; NURSING STATES THAT SHE IS REQUIRING MORE OXYGEN AND WILL LIKELY NEED TO BE RE-INTUBATED. REQUEST HOLD OF OT AT THIS TIME.
[2020-04-10 19:13] LABS: Glucose Point of Care 311 mg/dL (70-110)
[2020-04-10 19:13] LABS: Glucose Point of Care 243 mg/dL (70-110)
[2020-04-10 19:13] LABS: Glucose Point of Care 275 mg/dL (70-110)
--- NOTE | 2020-04-10 20:05 | PC.NURSE ---
Upon assessment, patient appears lethargic, unarousable to verbal stimuli, slightly responsive to deep, painful stimuli. Patient unable to protect airway. Son, Eusebio, called and made aware. Son will discuss options with family re: comfort care. Will apprise doctor once more information is available.
[2020-04-10 20:24] LABS: Glucose Point of Care 199 mg/dL (70-110)
[2020-04-10 20:24] LABS: Glucose Point of Care 278 mg/dL (70-110)
[2020-04-10 20:24] LABS: Glucose Point of Care 239 mg/dL (70-110)
--- NOTE | 2020-04-10 20:44 | PC.NURSE ---
Son, Eusebio, returned call and family have decided to pursue comfort measures. life enrichment manager, security, house sup notified, Dr. Steinberg notified, requested comfort mediations for later use once family arrives.
--- NOTE | 2020-04-10 21:55 | PM.EVENT ---
Event Note Event Note: For decreasing mentation and inability to protect airway, intubation was being considered, family decided to pursue comfort care, Morphine, atropine, Ativan initiated, family at the bedside
--- NOTE | 2020-04-10 23:26 | PC.NURSE ---
Medications not given d/t patient on comfort measures only per family.
--- NOTE | 2020-04-10 23:53 | PC.NURSE ---
Family requested comfort measures to commence, medication given for comfort (see MAR); RT d/c'd bipap, vitals discontinued.
[2020-04-11] VITALS (27 sets, daily range): BP systolic 84–135; BP diastolic 35–63; PULSE 104–124; RESP 13–50; TEMP 39.4–39.6; O2SAT 0–79
[2020-04-11] MEDS: LORazepam 2 mg/mL INJ 1 mL IVP ×2 (00:27→03:02)
[2020-04-11] MEDS: morphine 4 mg/mL SDV 1 mL IVP ×5 (03:20→21:04)
[2020-04-11 07:52] LABS: Glucose Point of Care 169 mg/dL (70-110)
[2020-04-11 07:52] LABS: Glucose Point of Care 181 mg/dL (70-110)
--- NOTE | 2020-04-11 08:13 | PC.NURSE ---
unresponsive oral care done at this time head of bed elevated family in room no distress o2 sat at 77
--- NOTE | 2020-04-11 09:33 | PC.NURSE ---
repositioned and oral care done at this time head of bed elevated at this time family at bedside for comfort care only
--- NOTE | 2020-04-11 09:47 | PC.NURSE ---
family request no life saving meds comfort measures only ... atropine gtt given at this time
--- NOTE | 2020-04-11 12:51 | PC.NURSE ---
dr Regalado called temp now 103 sats at 71 family at bedside for tylenol supp
--- NOTE | 2020-04-11 13:19 | PM.PN ---
Subjective Subjective: Interval history: Patient was not tolerating BiPAP last night. Family was called by the night team. Family conveyed their wish to make her comfort care. Medications: Reviewed: Yes Vitals/I&O/Wt Last Vital Signs Temp 103 F H 04/11/20 13:00 Pulse 108 H 04/11/20 13:00 Resp 27 H 04/11/20 13:00 BP 91/35 04/11/20 13:00 Pulse Ox 71 L 04/11/20 13:00 04/10/20 04/11/20 04/11/20 22:59 06:59 14:59 Intake Total 250 / 280 Output Total 800 / 1050 Balance -550 / -770 Weight last 48 hrs Weight 81.238 kg Physical Exam Narrative: EXAM NARRATIVE: Narrative EXAM NARRATIVE: Patient is minimally responsive. Respond to deep pain stimulus. HENMT COMMON NORMALS: normocephalic, atraumatic, hearing grossly normal bilaterally and external ears normal HEAD & SCALP: normocephalic and atraumatic EXTERNAL EAR: Yes external ears normal Eye COMMON NORMALS: no scleral icterus GENERAL EYE: appearance normal, both eyes and all related structures Chest COMMONS NORMALS: normal inspection of the chest Resp OTHER: bilateral minimal basal crackles. No wheezes, no rhonchi Cardio COMMON NORMALS: regular rate, regular rhythm, S1 normal heart sound present, S2 normal heart sound present, No gallops present (Cardio), No murmurs present (Cardio), No rub (Cardio) and Peripheral pulses 2+ throughout RATE: regular rate RHYTHM: regular rhythm HEART SOUNDS: S1 normal heart sound present and S2 normal heart sound present PERIPHERAL PULSES: Peripheral pulses 2+ throughout GI COMMON NORMALS: Normal to inspection, nondistended, normoactive bowel sounds present, Soft to palpation, non-tender, No hepatosplenomegaly present and no masses AUSCULTATION: Yes normoactive bowel sounds PALPATION: Yes Soft to palpation and Yes No hepatosplenomegaly present RECTAL EXAM: deferred Urinary Catheter Management^: Doherty: Cath Placed During This Visit: yes Reason for Continuing Indwelling Catheter: Accurate Measurement of Urinary Output in Critically Ill Patients Urinary Catheter Date of Insertion: 04/03/20 Urinary Catheter Time of Insertion: 11:55 Data : 04/10/20 07:08 04/10/20 07:08 A&P Assessment and plan (1) Septic shock: Status: Acute (2) Cardiac arrest: Status: Acute (3) Acute respiratory failure: Status: Acute Qualifiers: Respiratory failure complication: hypoxia and hypercapnia Qualified Code(s): J96.01 - Acute respiratory failure with hypoxia; J96.02 - Acute respiratory failure with hypercapnia (4) Acute renal failure: Status: Acute Qualifiers: Acute renal failure type: unspecified Qualified Code(s): N17.9 - Acute kidney failure, unspecified (5) ARDS (adult respiratory distress syndrome): Status: Acute (6) Acidosis, metabolic, with respiratory acidosis: Status: Acute (7) Polymyalgia rheumatica: Status: Acute (8) Hypertension: Status: Acute (9) DM type 2 (diabetes mellitus, type 2): Status: Acute (10) Hypothyroidism: Status: Acute (11) LBBB (left bundle branch block): Status: Acute (12) Third degree AV block: Status: Acute (13) Hyperkalemia: Status: Acute (14) DKA (diabetic ketoacidoses): Status: Acute Additional A&P Information Currently patient is comfort care from 2019. She is on comfort care medication namely. Ativan, atropine, morphine. This is her hospital course since admission 70-year-old female with past medical history of hypertension, polymyalgia rheumatica on chronic steroids who was recently started on Bactrim for last 10 days because of cellulitis of her lower limbs came to the ER after being intubated in the field after which she developed cardiac arrest for which she had ACLS protocol for 10 minutes. Post Nadira patient was in third-degree heart block which relieved after dopamine. Neurology: Awake, follow basic commands. CT head done on admission negative for any acute bleed. Cardiology: Patient has history of hypertension for which she takes atenolol and lisinopril at home.: Currently not able to take oral medications. Continue with nitro drip. Patient on arrival was in third-degree heart block. Right now patient is having sinus tachycardia with left bundle branch block and a possible fourth degree heart block. Given the presentation to the hospital cannot rule out acute coronary syndrome with the patient. No old EKG in the system to compare. No more heart block anymore at present. Likely NSTEMI versus demand ischemia. Could be secondary to cardiac arrest and CPR. Cannot rule out ACS. Cardiology was consulted. Because troponin went up to 2400 chances of NSTEMI are high so she was started on heparin drip. Heparin drip has been stopped as she was having bleeding from the E.T tube. If patient improves and depending on the clinical picture. Patient might go for left heart cath during this hospitalization. Echocardiogram results appreciated. Continue with aspirin statins has been started as the liver function is normal. HbA1c 6.9. Congestive heart failure: Patient still has fluid overloaded on chest x-ray as well as clinically. Good urine response yesterday. Continue Lasix 40 mg q12 h daily. We will monitor input and output strictly. Daily weights. Echocardiogram shows an EF of 40% with questionable regional wall motion abnormality because of technical difficulty. Pulmonology: Ac hypoxic respiratory failure: Secondary to pneumonia as well as decompensated systolic heart failure Status post extubation. antibiotics imipenem and azithromycin has been discontinued. Continue with nebs Continue Solu-Medrol 60 mg q24h daily. COVID-19 : Negative GI: Failed to pass NG Tube Continue Protonix twice daily. Renal: Acute renal failure. Creatinine mildly improving today. Most likely because of combination of dehydration, Bactrim, lisinopril. Medication reconciliation done for nephrotoxic drugs. Will dose antibiotics renally. Hyperkalemia: Resolved. Continue to monitor BMP daily for now. Acidosis: Resolved. Mixed respiratory and metabolic. We will treat as above and continue to follow. Infectious: As patient has remained hemodynamically stable and afebrile with MRSA negative we will stop vancomycin and monitor today. Continue with imipenem for possible aspiration along with azithromycin. Patient would most likely require azithromycin for 5-day course. Day 3 today. Patient has left knee swelling along with possible effusion and ecchymosis. Will get knee x-ray. If patient blood cultures come back positive most likely will have to have arthrocentesis to rule out septic joint. For now patient has other sources of infection which are more possible. COVID-19 results elevated. Endocrine: DKA resolved. Continue with insulin sliding scale at moderate dose with every 6 checks. Needed 12 units insulin in last 24 hours. Patient takes prednisone 10 mg at home daily for polymyalgia rheumatica. Continue with methylprednisolone at 60 mg IV every 6 hours. Goals of care: Discussed in detail with patient's son at bedside. Discussed that patient has a very very poor guarded prognosis because of cardiac arrest and respiratory arrest. Also discussed that it is quite possible that patient has brain injury or even possible has no brain functions. Discussed that we will continue to monitor for now. For now patient is full code. Family is also okay with dialysis if required. SCD FOR DVT prophylaxis. Protonix for PUD prophylaxis. Full code. Severely guarded prognosis Attestations Medical Necessity Statement*: Patient is comfort care. Coding Level of Care Code Acute Visualization Developer for [facility] Fwd Diagnoses Septic shock A41.9; R65.21 Cardiac arrest I46.9 Acute respiratory failure J96.01; J96.02 Respiratory failure complication: hypoxia and hypercapnia Acute renal failure N17.9 Acute renal failure type: unspecified ARDS (adult respiratory distress syndrome) J80 Acidosis, metabolic, with respiratory acidosis E87.4 Polymyalgia rheumatica M35.3 Hypertension I10 DM type 2 (diabetes mellitus, type 2) E11.9 Hypothyroidism E03.9 LBBB (left bundle branch block) I44.7 Third degree AV block I44.2 Hyperkalemia E87.5 DKA (diabetic ketoacidoses) E11.10
--- NOTE | 2020-04-11 18:36 | PC.NURSE ---
transfer to room 269 and morphine given for comfort
--- NOTE | 2020-04-11 21:52 | PM.EVENT ---
Event Note Event Note: Patient at 2140, son at the bedside,
--- NOTE | 2020-04-11 23:34 | PC.NURSE ---
POSTMORTEM CARE PROVIDED TO PATIENT. MENON CATHETER REMOVED. FEMORAL VEIN ACCESS REMOVED. NO JEWELRY ON PATIENT.
--- NOTE | 2020-04-11 23:49 | PC.NURSE ---
MTS declined, information sent to [facility]. Pending transfer.
--- NOTE | 2020-04-13 14:29 | P.DES_ITS ---
Discharge Providers DDS Date of Admission: 04/03/20 13:42 Date Summary Completed: 04/13/20 Attending Provider at Admission: Jonathon Zavala MD Time of : 21:40 Attending Provider at Discharge: Faraz Regalado MD Primary Care Provider: DO MIRIAM Frances Diagnoses Hospital Diagnoses (1) Septic shock: (2) Cardiac arrest: (3) Acute respiratory failure: Qualifiers: Respiratory failure complication: hypoxia and hypercapnia Qualified Code(s): J96.01 - Acute respiratory failure with hypoxia; J96.02 - Acute respir atory failure with hypercapnia (4) Acute renal failure: Qualifiers: Acute renal failure type: unspecified Qualified Code(s): N17.9 - Acute kidney failure, unspecified (5) ARDS (adult respiratory distress syndrome): (6) Acidosis, metabolic, with respiratory acidosis: (7) Polymyalgia rheumatica: (8) Hypertension: (9) DM type 2 (diabetes mellitus, type 2): (10) Hypothyroidism: (11) LBBB (left bundle branch block): (12) Third degree AV block: (13) Hyperkalemia: (14) DKA (diabetic ketoacidoses): Reason for Visit Reason for Visit: SOB Summary Date and Time of : Date of : 04/11/20 Time of : 21:40 Additional Data: Advance directives?: No Discharge Plan Discharge Patient Disposition: Condition: Stable Prescriptions: No Action prednisone 10 mg tablet 10 mg PO DAILY RF: 0 sulfamethoxazole-trimethoprim 800-160 mg tablet 1 tab PO BID RF: 0 oxycodone 15 mg tablet 15 mg PO Q4H RF: 0 pantoprazole 20 mg tablet,delayed release (DR/EC) 20 mg PO DAILY RF: 0 alprazolam 0.25 mg tablet 0.25 mg PO BID RF: 0 metformin 1,000 mg tablet 1,000 mg PO BID RF: 0 clotrimazole-betamethasone 1-0.05 % cream See Rx Instructions .ROUTE .COMPLEX RF: 0 gabapentin 300 mg capsule 300 mg PO TID RF: 0 lisinopril 40 mg tablet 40 mg PO DAILY RF: 0 atenolol 50 mg tablet 50 mg PO DAILY RF: 0 levothyroxine 112 mcg tablet 112 mcg PO DAILY RF: 0 desvenlafaxine succinate 50 mg tablet extended release 24 hr 50 mg PO DAILY RF: 0 Referrals: Jimmy Guzman DO [Primary Care Provider] - Discharge Date/Time: 04/11/20 21:40 Probable Cause of Probable cause of : Cardiac arrest due to respiratory disorder DS Attestations Time Spent in /Discharge Care*: greater than 30 min Quality - AMI: AMI present?: No Quality - Stroke: CVA present?: No Quality - VTE: VTE present?: No Coding Level of Care Code Acute Rn Clinical Documentation Specialist for g Fwd Diagnoses Septic shock A41.9; R65.21 Cardiac arrest I46.9 Acute respiratory failure J96.01; J96.02 Respiratory failure complication: hypoxia and hypercapnia Acute renal failure N17.9 Acute renal failure type: unspecified ARDS (adult respiratory distress syndrome) J80 Acidosis, metabolic, with respiratory acidosis E87.4 Polymyalgia rheumatica M35.3 Hypertension I10 DM type 2 (diabetes mellitus, type 2) E11.9 Hypothyroidism E03.9 LBBB (left bundle branch block) I44.7 Third degree AV block I44.2 Hyperkalemia E87.5 DKA (diabetic ketoacidoses) E11.10
== END 2020-04-11 21:40 | disposition expired | DRG 870 ==
LOC: ER 14:01 → ICU 14:52 → MEDSURG 04-11 18:18
PROVIDERS: Internal Medicine; Admitting Provider Student in an Organized Health Care Education/Training Program; Emergency Provider Emergency Medicine; PCP Family Medicine; Visit Provider Internal Medicine
DX: A41.9 Sepsis, unspecified organism (principal); R65.21 Severe sepsis with septic shock; J96.01 Acute respiratory failure with hypoxia; J96.02 Acute respiratory failure with hypercapnia; E11.10 Type 2 diabetes mellitus with ketoacidosis without coma; E87.4 Mixed disorder of acid-base balance; N17.9 Acute kidney failure, unspecified; E87.2 Acidosis; J93.9 Pneumothorax, unspecified; E87.5 Hyperkalemia; Z66 Do not resuscitate; Z51.5 Encounter for palliative care; I44.7 Left bundle-branch block, unspecified; E03.9 Hypothyroidism, unspecified; I10 Essential (primary) hypertension; I46.9 Cardiac arrest, cause unspecified; Z79.84 Long term (current) use of oral hypoglycemic drugs; F41.8 Other specified anxiety disorders; M81.0 Age-related osteoporosis without current pathological fracture; Z87.891 Personal history of nicotine dependence; M79.7 Fibromyalgia
CPT/HCPCS: 12345; 36415; 36416; 36556; 36592; 36600; 51702; 70450; 71045; 71275; 73560; 74177; 80048; 80051; 80053; 80061; 80306; 81001; 82009; 82436; 82550; 82803; 82810; 82962; 83036; 83540; 83550; 83605; 83735; 83880; 83986; 84100; 84132; 84133; 84145; 84300; 84443; 84484; 85007; 85014; 85018; 85025; 85049; 85610; 85730; 87040; 87070; 87205; 87426; 87449; 87635; 87641; 87804; 93005; 93306; 94002; 94003; 94640; 94660; 94664; 94799; 96372; 96375; 97161; 99285; A4216; C8929; C9113; J0131; J0360; J0456; J0461; J0610; J0743; J1250; J1644; J1815; J1940; J2060; J2250; J2270; J2704; J2930; J3010; J3370; J3411; J3475; J3480; J3490; J7030; J7050; J7611; Q9956; Q9967